=== PATIENT | female | born 1945 | race Caucasian/White ===

== ENCOUNTER 2024-06-25 08:23 | Outpatient (AMB) | payer MEDICARE, BC, SELFPAY ==
[2024-06-25 08:26] VITALS: BP 130/78; PULSE 55; O2SAT 91
--- NOTE | 2024-06-25 08:26 | A.OFFVIS_ITS ---
Vital Signs 06/25/24 08:26 Weight 121 lb 0.54 oz BP 130/78 Blood Pressure Location Rt brachial Position Sitting Pulse 55 Pulse Source Pulse Oximeter Pulse Oximetry (%) 91 L Oxygen Delivery Method Room Air Intake Visit Reasons: [facility]//RECORDS RECEIVED Intake Note: Patient present today for [facility] office visit. Directory Compiler Required: No Accompanied by: Self / Same As Patient Allergies erythromycin base Adverse Reaction (Unknown, Verified 06/25/24 08:31) Skin Rashes, Eruption of skin Medication List - Last Reconciled 06/25/24 by Babar Mcbride MD calcium carbonate 600 mg PO DAILY cholecalciferol (vitamin D3) 50 mcg PO DAILY empty container (BD Sharps Authorizer) As directed lisinopril 2.5 mg PO DAILY prednisone 3 mg PO DAILY [id number] (Evenity) mg subcut tocilizumab (Actemra ACTPen) 162 mg subcut QWEEK HPI Comments Details: Last Evenity 06/05 #7. Evenity started November 2023. Next due end of the month. Continues to take calcium and vitamin D. Last Actemra SC last saturday. In early may she had acute on chronic scalp tenderness resolved with increasing prednisone to 5mg for 1.5weeks. She decreased prednisone to 3mg daily now for 17 days. Increase hair growth and feels improved skin (less bruising) on lower dose of prednisone. Fatigue has improved, especially after conducting (3hours). She is not as wiped out as she used to be. Denies jaw claudication, vision loss, shoulder pain. She has very minimal scalp tenderness. She has been experiencing right lower lateral back pain for the last 7 months. Does back and hip stretches daily. Back pain is tolerable. MRI brain 2023 per patient report is normal. [facility] Medical History (Updated 06/25/24 @ 23:03 by Babar Mcbride MD) History of biopsy Pericarditis Pacemaker Osteoporosis Heart disease Surgical History History of colonoscopy Family History Mother Lung cancer Breast cancer Osteoporosis Father Heart disease Social History Alcohol intake: current Alcohol type: wine Comment: 3 x week Patient Tobacco Use Status: Former Tobacco user Substance Use Type: Marijuana Review of Systems Const All systems reviewed & are unremarkable except as noted in HPI and below Physical Exam Vital Signs: Last Vital Signs Pulse 55 06/25/24 08:26 BP 130/78 06/25/24 08:26 Pulse Ox 91 L 06/25/24 08:26 Oxygen Delivery Method Room Air 06/25/24 08:26 Const General: healthy appearing and comfortable Resp Effort & Inspection: normal respiratory effort Auscultation: clear to auscultation bilaterally Cardio Rate: regular rate Rhythm: regular rhythm Heart sounds: S1 normal heart sound present and S2 normal heart sound present Back/Spine/Pelvis Thoracic/Lumbar Spine: other (tender left lateral flank on palpation) Skin Other: Bruising present on left arm. Extrem Other: Bilateral temporal tenderness. No jaw tenderness on palpation. +2 palpable radial pulses. No tender joints. No synovitis. Good ROM of upper extremities. Right hip external rotation limited. Results Reviewed Results Reviewed: Labs from 2023 reviewed in scanned documents. Assessment & Plan Assessment & Plan (1) Giant cell arteritis: Comment: Controlled on current regimen: Actemra 162mg SC weekly and prednisone 3mg daily. Recent flare in May with scalp tenderness. Currently, scalp tenderness is minimal. Code(s): M31.6 - Other giant cell arteritis Category: Medical Plan: Continue prednisone 3mg daily for 1 month then taper 1mg every 6 weeks. If unable to taper 1mg every 6 weeks then alternate 3mg with 2mg the next day for 1 month then 2mg daily for 1 month then alternate 2mg with 1mg the next day for 1 month then 1mg daily for 1 month then stop. Patient will call for prednisone refill. Continue Actemra 162mg every week SC Labs for disease and drug monitoring ordered. Patient will bring in recent MRI brain report. [facility] October 2024. Patient plans to leave for [place] end of Jul/early Aug. (2) Other salvage determiner (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 therapy: Code(s): Z79.899 - Other salvage determiner (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 therapy Category: Medical Plan: See above. (3) Osteoporosis: Comment: Hx of fragility fracture rib fracture. Fosamax [id number]. High risk for future fracture. [facility] 11/2023- Code(s): M81.0 - Age-related osteoporosis without current pathological fracture Category: Medical Plan: Continue evenity SC every 4 weeks for total of 12 months Labs for drug monitoring ordered. (4) Back pain of thoracolumbar region: Comment: 7 month hx likely due to MSK strain. Less likely related to evenity Code(s): M54.50 - Low back pain, unspecified; M54.6 - Pain in thoracic spine Category: Medical Plan: Continue applying heat to affected area PRN Continue back stretches Try lidocaine patch OTC Plan . Orders: Orders Erythrocyte Sedimentation Rate Today M31.6 - Other giant cell arteritis, Z79.899 - Other skilled nursing (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 therapy Creatinine Today M31.6 - Other giant cell arteritis, Z79.899 - Other salvage determiner (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 therapy Hepatitis B,C Profile Today M31.6 - Other giant cell arteritis, Z79.899 - Other salvage determiner (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 therapy Calcium Today M81.0 - Age-related osteoporosis without current pathological fracture, Z79.899 - Other salvage determiner (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 therapy Alanine Aminotransferase Today M31.6 - Other giant cell arteritis, Z79.899 - Other skilled nursing (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 therapy Aspartate Amino Transferase Today M31.6 - Other giant cell arteritis, Z79.899 - Other salvage determiner (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 therapy C Reactive Protein Today M31.6 - Other giant cell arteritis, Z79.899 - Other salvage determiner (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 therapy Complete Blood Count Auto Diff Today M31.6 - Other giant cell arteritis, Z79.899 - Other salvage determiner (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 therapy T Spot TB Today M31.6 - Other giant cell arteritis, Z79.899 - Other salvage determiner (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 therapy Vitamin D 25-OH Total Today M81.0 - Age-related osteoporosis without current pathological fracture, Z79.899 - Other skilled nursing (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 therapy Coding Level of Care Code Est Pt Level 4 (32833) Complex EM visit Add On G2211 Diagnoses Giant cell arteritis M31.6 Other salvage determiner (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 therapy Z79.899 Osteoporosis M81.0 Back pain of thoracolumbar region M54.50; M54.6
== END 2024-06-25 09:23 | disposition home or self-care (01) ==
PROVIDERS: PCP Physician Assistant Medical; Visit Provider Internal Medicine Rheumatology
DX: M31.6 Other giant cell arteritis (principal); Z79.899 Other long term (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 therapy; M81.0 Age-related osteoporosis without current pathological fracture; M54.50 Low back pain, unspecified; M54.6 Pain in thoracic spine
CPT/HCPCS: 99214; G2211

== ENCOUNTER 2024-06-25 08:23 | Outpatient (REF) | payer MEDICARE, BC, SELFPAY ==
[2024-06-25 10:11] LABS: MANUAL DIFF FLAG NO
[2024-06-25 10:42] LABS: Basophils Percent Auto 0.6 % (0-2); Eosinophils Absolute Auto 0.1 X10*3/uL (0.0-0.4); Eosinophils Percent Auto 1.3 % (0-4); Hematocrit 41.6 % (37.0-47.0); Hemoglobin 13.4 g/dl (12.0-16.0); Imm Gran Abs Auto 0.02 X10*3/uL (0.00-0.03); Imm Gran Pct Auto 0.3 % (0.0-0.4); Lymphocytes Absolute Auto 0.9 X10*3/uL (1.2-4.9); Lymphocytes Percent Auto 13.2 % (20-40); Mean Corpuscular HGB Conc 32.2 g/dl (31.0-35.0); Mean Corpuscular Hemoglobin 28.2 pg (27.0-33.0); Mean Corpuscular Volume 87.4 fL (80.0-98.0); Mean Platelet Volume 11.3 fL (9.4-12.3); Monocytes Absolute Auto 0.5 X10*3/uL (0.1-1.2); Monocytes Percent Auto 7.5 % (2-11); Neutrophils Absolute Auto 5.1 x10*3/uL (2.0-8.3); Neutrophils Percent Auto 77.1 % (45-73); Platelet Count 221 X10*3/uL (160-400); Red Blood Count 4.76 X10*6/uL (4.20-5.50); Red Cell Distribution Width 13.5 % (11.0-16.0); White Blood Count 6.7 X10*3/uL (4.8-10.8)
[2024-06-25 11:16] LABS: Alanine Aminotransferase 17 U/L (0-31); Aspartate Amino Transferase 23 U/L (5-31); C Reactive Protein 0.11 mg/dL (< or = 0.50); Calcium 8.8 mg/dL (8.4-10.2); Estimated Glomerular Filt Rate 46
[2024-06-25 11:18] LABS: Erythrocyte Sedimentation Rate 2 MM/HR (0-20)
[2024-06-25 11:31] LABS: Vitamin D 25-OH Total 45.1 ng/mL (>30)
[2024-06-25 11:34] LABS: HBS Num1 0.39 mIU/mL (0-7.99); HBc Num1 0.07 S/CO (0.00-0.79); HBsAGNum1 0.34 S/CO (0.00-0.99); Hepatitis B Core Antibody Nonreactive (Nonreactive); Hepatitis B Surface Antigen Negative (Negative); ~HepC Num1 0.06 S/CO (0.00-0.79); ~Hepatitis B Surface Antibody NONREACTIVE (Nonreactive); ~Hepatitis C Antibody Nonreactive (Nonreactive)
[2024-06-28 04:53] LABS: TS Negative Control Passed; TS Panel A 0; TS Panel B 0; TS Positive Control Passed; TSpotTB Negative (Negative)
== END 2024-06-25 08:24 | disposition home or self-care (01) ==
LOC: HO.LAB 08:23
PROVIDERS: PCP Physician Assistant Medical; Visit Provider Internal Medicine Rheumatology
DX: M31.6 Other giant cell arteritis (principal); M81.0 Age-related osteoporosis without current pathological fracture; Z79.899 Other long term (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 therapy; M54.50 Low back pain, unspecified; M54.6 Pain in thoracic spine
CPT/HCPCS: 36415; 82306; 82310; 82565; 84450; 84460; 85025; 85652; 86140; 86481; 86704; 86706; 86803; 87340; 99212

== ENCOUNTER 2024-08-03 12:43 | Outpatient (AMB) | payer MEDICARE, BC, SELFPAY ==
--- OUTSIDE RECORDS SUMMARY | 2024-08-03 12:47 | XMS_ITS | Continuity of Care Document ---
Author Organization [facility], FP, EHC, OFFICE Address [address] [place] [address] Care Team Providers Care Lan/Wan Engineer Name Role Phone AAMNDA CURTIS Mainframe Systems Administrator MARSHA BARNES Primary Care Provider CESIA NEWBY Airport Operations Coordinator [facility] Senior Sharepoint Developer Assessment No assessment recorded. Plan of Treatment Reminders Order Date Submit Date Provider Last Modified By Organization Details Last Modified Time Details Appointments None recorded. Lab None recorded. Referral None recorded. Procedures None recorded. Surgeries None recorded. Imaging None recorded. Medication Orders Evenity 210 mg/2.34 mL (105 mg/1.17 mL x 2) subcutaneou s syringe 2023 024 [email or web address] [id number] [address] [place], [address], 14:47:51 Evenity 210 mg/2.34 mL (105 mg/1.17 mL x 2) subcutaneou s syringe 2023 024 [id number] [address] [place], [address], 14:47:51 Patient TargetsNo targets recorded. Patient InstructionsNo instructions recorded. Reason for Referral None Reported. Problems Name Problem SNOMED Code Status Onset Date Resolution Date Notes Provider Name and Address Organization Details Recorded Time Anxiety 96824481 Active Marsha Barnes PA-C [address] [place] [address], [phone] , [facility] 2 08:05:37 Ophthalm ic migraine 94938420 Active 2016 Laura Franco NP [address] [place] [address], , [facility] 7 15:17:33 History of urticari a [id number] 526801 Active 2018 urticari a multifor me Marsha Barnes PA-C [address] [place] [address], , [facility] 9 12:10:16 Sinus bradycar theresa 33939755 Active 2018 pacemake r placed Marsha Barnes PA-C [address] [place] [address], [phone] , [facility] 0 10:46:17 Sick sinus syndrome 02110193 Active 2018 pacemake r Marsha Barnes PA-C [address] [place] [address], , [facility] 0 07:37:01 Cardiac pacemake r in situ 395316988 Active 2019 Marsha Barnes PA-C [address] [place] [address], , [facility] 2 08:05:37 Atrial fibrilla tion 54595367 Active 2019 due to pericard itis and now off medicati ons Marsha Barnes PA-C [address] [place] [address], , [facility] 2 08:05:37 Diastoli c dysfunct ion 1316655 Active 2019 Grade 1 Marsha Barnes PA-C [address] [place] [address], , [facility] 0 14:15:34 Acute injury of kidney 61799564357 620092 Active 2020 ATN from colchici ne/ibupr ofen/lis inopril, hydrate, Kamel, improvin g Marsha Barnes PA-C [address] [place] [address], [phone] , [facility] 2 10:22:56 Temporal arteriti s 911656150 Active 2021 Dx 2 - started steroids 11/15/2021 ; recurren ce starting Actemra 08/2022, course two years Marsha Barnes PA-C [address] [place] [address], [phone] , [facility] 3 09:55:37 Chronic kidney disease stage 3 474714908 Active 2021 GFR = 42.6, 03/12/22 Ashli Armenta, JACQUES null, [facility] 2 11:39:45 Erythema multifor me 04745159 Completed 200212/24/2018 Marsha Barnes PA-C [address] [place] [address], [phone] , [facility] 9 12:09:56 Extrinsi c asthma with status asthmati cus Completed 200705/31/2011 Not Available [facility] 3 03:11:30 Dyspnea 291609561 Completed 200305/31/2011 Not Available [facility] 3 03:11:30 Essentia l hyperten kaushik 83988365 Active 2002 Laura Franco NP [address] [place] [address], [phone] , [facility] 6 15:45:13 Benign essentia l hyperten kaushik 1189476 Completed 200105/31/2011 Not Available [facility] 3 03:11:30 Allergic rhinitis 32465442 Active 2006 Marsha Barnes PA-C [address] [place] [address], [phone] , [facility] 2 08:05:37 Influenz a 3566790 Completed 05/31/2011 Not Available [facility] 3 03:34:33 Dizzines s 578502397 Completed 200305/31/2011 Not Available [facility] 3 03:11:30 Major depressi on, melancho lic type 738760660 Active Not Available [facility] 3 03:11:30 Disorder of skeletal system 85086195 Completed 200105/31/2011 [facility] Available [facility] 3 03:11:30 Pain in throat 960765114 Completed 200705/31/2011 [facility] Available [facility] 3 03:11:30 Knee pain Completed 200605/31/2011 [facility] Available [facility] 3 03:11:30 Elevated blood-pr essure reading without diagnosi s of hyperten kaushik 008188341 Completed 200205/31/2011 Not Available [facility] 3 03:11:30 Malaise and fatigue 019371478 Completed 05/31/2011 Not Available [facility] 3 03:11:30 Left upper quadrant pain 762405897 Completed 10/16/2011 Not Available [facility] 3 03:11:30 Subserou s leiomyom a of uterus 79841174 Completed 200205/31/2011 [facility] Available [facility] 3 03:11:30 Headache 14519703 Completed 200705/31/2011 Not Available [facility] 3 03:11:30 Hyperthy roidism 96454929 Completed 200405/31/2011 [facility] Available [facility] 3 03:11:30 Uterine leiomyom a 77653955 Completed 200105/31/2011 Not Available [facility] 3 03:11:30 Ganglion of joint 52132232 Completed 200105/31/2011 [facility] Available [facility] 3 03:11:30 Hip pain 32969851 Completed 10/16/2011 Not Available [facility] 3 03:11:30 Allergic asthma without status asthmati cus 97461208 Active 2004 Marsha Barnes PA-C [address] [place] [address], [phone] , [facility] 2 08:05:37 Pure hypercho lesterol emia 055451089 Completed 200205/31/2011 Not Available [facility] 3 03:11:30 Hypertro phic conditio n of skin 12637226 Completed 200805/31/2011 [facility] Available [facility] 3 03:11:30 Breathin g painful 35996198 Completed 200405/31/2011 [facility] Available [facility] 3 03:11:30 Finding by method 306048392 Completed 200305/31/2011 Not Available [facility] 3 03:11:30 Breast lump 69784841 Completed 200510/16/2011 Not Available [facility] 3 03:11:30 Acute upper respirat ory infectio n 98297763 Completed 05/31/2011 Not Available [facility] 3 03:11:30 Nonvenom ous insect bite of multiple sites 590561945 Completed 05/31/2011 Not Available [facility] 3 03:11:30 On examinat ion - a rash Completed 200305/31/2011 [facility] Available [facility] 3 03:11:30 Senile osteopor osis 64985014 Completed 200105/31/2011 Not Available [facility] 3 03:11:30 Herpes zoster 6849380 Completed 200210/16/2011 Not Available [facility] 3 03:11:30 Osteopor osis 54381612 Active 2001 Dx 02/2022, does not want to start medicati ons Marsha Barnes PA-C [address] [place] [address], [phone] , [facility] 2 10:39:40 Menopaus al symptom 03413954 Completed 200105/31/2011 Not Available [facility] 3 03:11:30 Benign neoplasm of skin 54996281 Completed 05/31/2011 Not Available [facility] 3 03:11:30 Migraine 97746720 Completed 10/16/2011 Not Available [facility] 3 03:11:30 Streptoc occal sore throat 63301515 Completed 200705/31/2011 Not Available [facility] 3 03:11:30 Viral upper respirat ory tract infectio n 902423175 Completed 200705/31/2011 Not Available [facility] 3 03:11:30 Problem Notes None recorded. Procedures Surgical History Date Name Laterality Status Provider Name and Address Organization Details Recorded Time 11/27/19 24 G2211 completed WILLA Grant [address] [place] [address], [phone], [facility] 11/27/2023 11:03:32 06/05/20 23 Medicare Wellness Visit completed Kellen Meza [facility] 04/18/2023 09:30:54 06/05/20 23 Asthma Control Test (12 + years old) completed Kellen Meza [facility] 04/18/2023 09:31:10 06/05/20 23 Advanced Care Planning completed Kellen Meza [facility] 04/18/2023 09:31:00 07/16/20 22 Asthma Control Test (12 + years old) completed Kellen Meza [facility] 07/16/2022 08:29:27 03/16/20 22 Medicare Wellness Visit completed Krista Shay [facility] 03/16/2022 09:17:39 03/16/20 22 Alcohol use screening completed Krista [facility] 03/16/2022 09:17:39 03/16/20 22 Advanced Care Planning completed Marsha Barnes PA-C [address] [place] [address], [phone], [facility] 03/16/2022 12:46:19 11/18/19 22 biopsy of temporal artery completed Marsha Barnes PA-C [address] [place] [address], [phone], [facility] 11/20/2021 07:44:20 09/15/19 22 Asthma Control Test (12 + years old) completed Krista Shay [facility] 09/15/2021 10:13:57 02/11/20 21 Medicare Wellness Visit completed Nimo Worthington MA [facility] 02/08/2021 13:47:52 02/11/20 21 prevention-card iovascular risk reduction counseling completed Nimo Worthington MA [facility] 02/08/2021 13:47:52 02/11/20 21 prevention-howard al alcohol misuse screening completed Nimo Worthington MA [facility] 02/08/2021 13:47:52 02/11/20 21 Asthma Control Test (12 + years old) completed Marsha Barnes PA-C [address] [place], [address], [facility] 02/14/2021 13:40:34 07/14/20 20 42951: Therapeutic Exercise completed Shana Schofield, PT [address] [place], [address], [facility] 07/17/2020 19:32:09 07/06/20 20 24799: Therapeutic Exercise completed Shana Schofield, PT [address] [place], [address], [facility] 07/06/2020 08:04:57 06/29/20 20 Physical Activity Counselling completed Shana Schofield, PT [address] [place], [address], [facility] 07/05/2020 23:15:20 06/29/20 20 84894: PT Eval Low Complexity completed Shana Schofield, PT [address] [place], [address], [facility] 07/05/2020 23:15:25 02/08/20 20 Medicare Wellness Visit completed Rebecca Laws MA [facility] 02/05/2020 16:42:35 02/08/20 20 prevention-card iovascular risk reduction counseling completed Rebecca Laws MA [facility] 02/05/2020 16:42:35 02/08/20 20 prevention-howard al alcohol misuse screening completed Rebecca Laws MA [facility] 02/05/2020 16:42:35 02/08/20 20 Asthma Control Test (12 + years old) completed Marsha Barnes PA-C [address] [place], [address], [facility] 02/09/2020 12:18:47 02/07/20 19 Medicare Wellness Visit completed Rebecca Laws MA [facility] 02/06/2019 14:33:58 12/29/19 19 POC Strep Testing completed Latosha Delcid [facility] 12/28/2018 09:16:54 09/16/19 19 Medicare Risk for Falls Screen completed Rebecca Laws MA [facility] 09/16/2018 14:38:15 01/31/20 18 Medicare Wellness Visit completed Ashli Pacheco MA [facility] 01/30/2018 14:53:22 01/10/20 17 Medicare Wellness Visit completed Ashli Pacheco MA [facility] 01/09/2017 14:35:04 01/06/20 16 Medicare Wellness Visit completed Ashli Pacheco MA [facility] 01/06/2016 14:21:09 01/05/20 15 Medicare Wellness Visit completed Ashli Pacheco MA [facility] 01/04/2015 10:33:42 03/03/20 14 Tassoni - EGD completed Emory Leo MD [address] [place], [address], [facility] 03/03/2014 11:58:35 12/30/19 14 Medicare Wellness Visit completed Ashli Pacheco MA [facility] 12/29/2013 09:45:55 12/30/19 14 Asthma Control Test (12 + years old) completed Laura Franco NP [address] [place], [address], [facility] 12/29/2013 10:31:15 12/27/19 13 Medicare Wellness Visit completed Ashli Pacheco MA [facility] 12/26/2012 09:31:06 12/27/19 13 Asthma Control Test (12 + years old) completed Ashli Pacheco MA [facility] 12/26/2012 09:42:38 05/21/20 12 Asthma Control Test (12 + years old) completed Laura Franco NP [address] [place], [address], [facility] 05/21/2012 14:22:52 10/24/19 12 Medicare Wellness Visit completed Ashli Pacheco MA [facility] 10/24/2011 15:04:21 02/08/20 09 Treatment and Advice completed Ashley Mota, PT [address] [place], [address], [facility] 02/07/2009 11:03:34 11/16/19 09 Skin Tag Removal (each additional 10) completed Haley Saba MD [address] [place] [address], [phone], [facility] 11/15/2008 16:09:59 08/12/18 70 Bladder Surgery completed Adelaida Rose [facility] 12/17/2014 08:38:13 Pmkr, dual, rate-resp completed Marsha Barnes PA-C [address] [place] [address], [phone], [facility] 12/31/2019 14:16:27 Imaging Results None recorded. Procedure Notes None recorded. Medical Equipment None Reported. Allergies Allergen ID Allergen Name Allergen Category Reaction Reaction Severity Criticality Documentation Date Start Date Code Code System Note Provider Name and Address Organization Details Recorded Time [id number] atovaquon e / proguanil medicatio n itching Not available Not available 12/26/2012 96607 3 RxNorm Laura Franco NP [address] [place] [address] [place], [address], [facility] 3 09:51:17 254297 Wixela medicatio n other moderate Not available 02/07/2019 33556 06 RxNorm sever e muscl e cramp s lasti ng three hours Marsha Barnes PA-C [facility] [place], [address], [facility] 9 06:43:03 6489 erythromy brenda medicatio n rash Not available Not available 11/01/2008 4053 RxNorm Not Available [facility] 1 06:05:20 Medications Name Sig Start Date Stop Date Status Note LastModified by Organization Details LastModified Time clotrimaz ole 10 mg citlalli Take 1 tablet 5 times a day by oral route for 10 days. 10/31 completed Not Available Not Available Not Available nystatin 100,000 unit/mL oral suspensio n SWISH IN MOUTH AND RETAIN LONG POSSIBLE (FEW MINUTES) BEFORE SWALLOWI NG. USE 4 TIMES A DAY 11/05 completed Not Available Not Available Not Available prednison e 10 mg tablet TAKE 1.5 TABLETS BY MOUTH EVERY DAY FOR 30 DAYS 03/04 completed on 11mg not 10 01/09/23 SM Not Available Not Available Not Available doxycycli ne hyclate 100 mg capsule TAKE 1 CAPSULE BY MOUTH TWICE A DAY FOR 14 DAYS active Not Available Not Available No t Available Carafate 100 mg/mL oral suspensio n Take 10 mL 4 times a day by oral route. 2009 active Not Available Not Available Not Avai lable ofloxacin 0.3 % eye drops 09/16 completed Not Available Not Available Not Available ranitidin e 300 mg tablet active Not Available Not Available Not Available bacitraci n 500 unit/gram eye ointment APPLY TO LEFT EYE TWICE A DAY 07/17 completed Not Available Not Available Not Available meloxicam 15 mg tablet Take 1 tablet every day by oral route for 30 days. 01/28 completed Not Available Not Available Not Available atovaquon e 250 mg-progua nil 100 mg tablet TAKE 1 TAB DAILY STARTING 2DAYS BEFORE TRAVEL AND CONTINUI NG 7 DAYS ON RETURN 06/02 completed Not Available Not Available Not Available prednison e 20 mg tablet PATIENT IS TAKING 15MG OF 11/05/22 PLEASE D/C 20MG active Not Available Not Available No t Available prednison e 5 mg tablet TAKE 1 TABLET DAILY active Not Available Not Available No t Available methylpre dnisolone 4 mg tablet Take 1 tablet twice a day by oral route as needed. 01/09 completed currentl y not taking Not Available Not Available Not Available omeprazol e 40 mg capsule,d elayed release QD 11/26 completed Not Available Not Available Not Available aspirin 81 mg tablet,de layed release 11/05 completed Not Available Not Available Not Available Gentak 0.3 % (3 mg/gram) eye ointment APPLY 1/2 INCH STRIP TO AFFECTED EYELID TWICE A DAY active Not Available Not Available No t Available ketorolac 0.5 % eye drops INSTILL 1 DROP IN RIGHT EYE THREE TIMES A DAY FOR 3 WEEKS FOLLOWIN G SURGERY 04/26 completed Not Available Not Available Not Available ciclopiro x 8 % topical solution APPLY TO THE AFFECTED AREA(S) TOPICALL Y ONCE DAILY PREFERAB LY AT BEDTIME OR 8 HOURS BEFORE WASHING 11/26 completed Not Available Not Available Not Available oxycodone -acetamin ophen 5 mg-325 mg tablet Take 1 tablet every 6 hours by oral route as needed for 10 days. 11/21 completed not taking 11/15/21 sf Not Available Not Available Not Available calcium 600 mg (as calcium carbonate 1,500 mg) tablet 02/07 completed No longer using 0-ah Not Available Not Available Not Available prednisol one acetate 1 % eye drops,oseas pension 09/16 completed Not Available Not Available Not Available lorazepam 0.5 mg tablet Take 1tab tid prn active Not Available Not Available No t Available prednison e 1 mg tablet TAKE 4 TABLETS EVERY DAY BY ORAL ROUTE FOR 30 DAYS. 2023 active Not Available Not Available Not Avai lable benzonata te 100 mg capsule TAKE 1 CAPSULE BY MOUTH THREE TIMES A DAY FOR 7 DAYS 11/24 completed Not Available Not Available Not Available prednison e 2.5 mg tablet TAKE 5 TABLETS FOR TWO WEEKS THEN TAPER TO 4 TABLETS FOR ONE MONTH. 11/26 completed Not Available Not Available Not Available ranitidin e 150 mg tablet Take 1 tablet twice a day by oral route. 2009 active Not Available Not Available Not Avai lable clotrimaz ole-betam ethasone 1 %-0.05 % topical cream Apply to the affected and surround ing areas of skin by topical route 2 times per day morning and evening for 2 weeks 2009 active Not Available Not Available Not Avai lable ranitidin e 300 mg capsule Take 1 capsule every day by oral route before meals. 2012 active Not Available Not Available Not Avai lable lisinopri l 10 mg tablet Take 1 tablet every day by oral route for 90 days. 11/05 completed Not Available Not Available Not Available Tobrex 0.3 % eye ointment APPLY A SMALL AMOUNT (1/2 INCH) TO THE LOWER LID OF THE AFFECTED EYE(S) BY OPHTHALM IC ROUTE 2 TIMES PER DAY 2013 active Not Available Not Available Not Avai lable flecainid e 100 mg tablet TAKE 1 TABLET BY MOUTH TWICE A DAY 08/19 completed not using 08/19/20 -sk Not Available Not Available Not Available ibuprofen 200 mg tablet Take 1 tablet every 8 hours by oral route. 08/19 completed not using 08/19/20 -sk Not Available Not Available Not Available omeprazol e 20 mg capsule,d elayed release Take 1 capsule every day by oral route in the morning for 30 days. 01/09 completed Not Available Not Available Not Available Tylenol 325 mg tablet Take 2 tablets every 6 hours by oral route as needed. 02/07 completed Not Available Not Available Not Available codeine 10 mg-guaife nesin 100 mg/5 mL oral liquid TAKE 10MLS BY MOUTH EVERY 4 HOURS NEEDED 11/24 completed Not Available Not Available Not Available oxycodone -acetamin ophen 2.5 mg-325 mg tablet 02/07 completed No longer using 0-ah Not Available Not Available Not Available lisinopri l 5 mg tablet PLEASE D/C 5MG, PATIENT TAKING 2.5MG active Not Available Not Available No t Available zolpidem 5 mg tablet TAKE 1/2 TO 1 TABLET AT BEDTIME NEEDED 01/09 completed currentl y not taking Not Available Not Available Not Available ibuprofen 600 mg tablet QID 04/21 completed does not take 04/20/21 KRB Not Available Not Available Not Available Zonalon 5 % topical cream 07/17 completed Not Available Not Available Not Available methylpre dnisolone 4 mg tablets in a dose pack take as directed on dosepak 02/07 completed no longer taking 02/06/19- ah Not Available Not Available Not Available albuterol sulfate HFA 90 mcg/actua tion aerosol inhaler INHALE 1 TO 2 PUFFS EVERY 6 HOURS NEEDED 02/23 completed PRN, not using 11/15/21 sf not currentl y taking 01/29/22 Not Available Not Available Not Available colchicin e 0.6 mg tablet QD 04/21 completed does not take 04/20/21 KRB Not Available Not Available Not Available fluticaso ne propionat e 50 mcg/actua tion nasal spray,oseas pension [place] 1-2 sprays in each nostril once daily 2010 active Not Available Not Available Not Avai lable lisinopri l 2.5 mg tablet TAKE 1 TABLET DAILY active Not Available Not Available No t Available doxycycli ne hyclate 100 mg tablet TAKE 2 TABLETS BY MOUTH ONCE FOR 1 DAY 02/27 completed Not Available Not Available Not Available amoxicill in 875 mg-potass ium clavulana te 125 mg tablet TAKE 1 TABLET BY MOUTH EVERY 12 HOURS FOR 5 DAYS 10/19 completed gave pt diarrea 10/19/21 ds Not Available Not Available Not Available oxycodone 5 mg tablet TAKE 1 TABLET BY MOUTH EVERY 6 HOURS NEEDED active Not Available Not Available No t Available magnesium 200 mg tablet Take 2 tablets every day by oral route. 09/16 completed Not currentl y taking 09/16/18-a h Not Available Not Available Not Available Vitamin D2 10 mcg (400 unit) tablet 2006 active Take 1.00 tabs daily Not Available Not Available Not Available cyclobenz aprine 5 mg tablet Take 1 tablet 3 times a day by oral route. 11/21 completed not taking 11/15/21 sf Not Available Not Available Not Available metoprolo l tartrate 25 mg tablet TAKE 2 TABLETS BY MOUTH 2 TIMES A DAY. 04/19 completed Not Available Not Available Not Available magnesium 1 tablet a day active Not Available Not Available No t Available calcium 1 tablet daily active 600 mg Not Available Not Available No t Available omeprazol e active 20 mg 1 tablet daily Not Available Not Available Not Available Vitamin D3 1000 IU daily active Not Available Not Available No t Available multivita min 11/01 completed qd Not Available Not Available Not Available [place] Deluxe Digital Monitor kit 2007 active use as directed Not Available Not Available Not Available omega-3 fatty acids-fis h oil 09/16 completed stopped 08/07/18 DO Not Available Not Available Not Available Pulmicort Flexhaler 90 mcg/actua tion breath activated Inhale 2 puffs twice a day by inhalati on route. 2009 active Not Available Not Available Not Avai lable Symbicort 80 mcg-4.5 mcg/actua tion HFA aerosol inhaler Inhale 1 puff twice a day by inhalati on route. 04/20 completed currentl y not taking 02/24/21 yp, taking 03/20/21 dsy, does not take 04/20/21 KRB Not Available Not Available Not Available magnesium 84.5 mg (as magnesium oxide 140 mg) capsule Take 1 capsule every day by oral route in the morning. 02/07 completed No longer using 0-ah Not Available Not Available Not Available blood pressure test kit-large cuff 04/21 completed Not Available Not Available Not Available omega 3-dha-epa -fish oil 1,000 mg (120 mg-180 mg) capsule Take 1 capsule every day by oral route as directed . 02/07 completed No longer using 0-ah Not Available Not Available Not Available Eliquis 5 mg tablet Take 1 tablet twice a day by oral route. 04/19 completed No longer using 0-ah Not Available Not Available Not Available Breo Ellipta 100 mcg-25 mcg/dose powder for inhalatio n Inhale 1 puff every day by inhalati on route. 09/15 completed Not Available Not Available Not Available Actemra 162 mg/0.9 mL subcutane ous syringe Inject 0.9 mL every 4 weeks by subcutan eous route. active Not Available Not Available No t Available Breo Ellipta 200 mcg-25 mcg/dose powder for inhalatio n TAKE 1 PUFF BY MOUTH EVERY DAY 11/21 completed not using 11/15/21 sf Not Available Not Available Not Available Vivotif 2 billion unit capsule,d elayed release TAKE ONE CAPSULE BY MOUTH EVERY OTHER DAY 07/24 completed Not Available Not Available Not Available Shingrix (PF) 50 mcg/0.5 mL intramusc ular suspensio n, kit 08/19 completed had on at the pharmacy - Not Available Not Available Not Available Actemra ACTPen 162 mg/0.9 mL subcutane ous pen injector 11/05 completed Not Available Not Available Not Available Wixela Inhub 250 mcg-50 mcg/dose powder for inhalatio n TAKE 1 PUFF BY MOUTH TWICE A DAY 12/28 completed Not Available Not Available Not Available Evenity 210 mg/2.34 mL (105 mg/1.17 mL x 2) subcutane ous syringe adminste r 1.17 mL subcutan eously once a month 2023 active Not Available Not Available Not Avai lable Evenity dose unknown, 1 shots per month by Rheum active Not Available Not Available No t Available Afluria Qd 2018- (36 mos up)(PF)60 mcg (15 mcg x4)/0.5 mL IM syringe 06/17 completed Not Available Not Available Not Available Flowflex COVID-19 Antigen Home Test kit DIRECTED 01/09 completed Not Available Not Available Not Available Evusheld (EUA) 150 mg/1.5 mL-150 mg/1.5 mL intramusc ular solution Inject 1.5 mL by intramus cular route. 02/23 completed Not Available Not Available Not Available biotin 1,250 mcg-colla gen 50 mg-vit C 67.5 mg-vit E-herbal chew tablet Take 1 tablet every day by oral route. active Not Available Not Available No t Available Vitals Date Recorded Body height Body mass index (BMI) Body weight Heart rate Systolic blood pressure Diastolic blood pressure Provider Name and Address Organization Details Last Updated DateTime 4 162.56 cm 21 kg/m2 59624.3 7 g 71 /min 118 mm[Hg] 68 mm[Hg] Alena Gregg LPN [facility] 4 14:04:33 Social History Question Answer Notes LastModified by Organizat ion Details LastModified Time Tobacco Smoking Status Former Smoker quit in her 20's Gerri evans, [facility] 12/29/2010 15:05:32 Do You Have An Advance Directive? No [email or web address] Information not available 10/18/2011 What Is Your Level Of Alcohol Consumption? Moderate Information not available 08/06/2013 How Much Tobacco Do You Chew? None Information not available 09/20/2011 Are You Currently Employed? No retired [email or web address] Information not available 06/05/2023 What Type Of Diet Are You Following? REGULAR Information not available 09/20/2011 Do You Or Have You Ever Used E-cigarettes Or Vape? Never Used Electronic Cigarettes Information not available 11/17/2019 Education Post Graduate Information not available 01/04/2015 What Is The Highest Grade Or Level Of School You Have Completed Or The Highest Degree You Have Received? 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 Yes Is Worried Abt Partner [email or web address] Information not available 06/05/2023 When Did You Quit Smoking? 16+yearssincel [email or web address] Information not available 04/20/2015 How Many Days In The Past Year Have You Had A Heavy Drinking Consumption (4+ Female, 5+ Male)? 0 Information not available 04/20/2015 Are There Any Guns Present In Your Home? No Information not available 09/20/2011 Do You Use Insect Repellent Routinely? Yes [email or web address] Information not available 06/05/2023 Live Alone Or With Others? With Others Information not available 09/20/2011 Does The Patient Have Difficulty Speaking Peruvian? No Information not available 09/20/2011 Does The Patient Have Difficulty Reading Peruvian? No Information not available 09/20/2011 Patient Has Health Care Proxy Signed And In Chart Yes Information not available 02/16/2021 MOLST Form Signed And In Chart 02/10/2021 Information not available 02/16/2021 CCM Consent Discussion 03/16/2022 [email or web address] Information not available 03/16/2022 Marital Status Domestic Partner Belia Aguirre - 'Anne' Information not available 08/15/2010 Mosquito Repellent Used Routinely Yes Information not available 09/20/2011 What Was The Date Of Your Most Recent Tobacco Screening? 05/18/2024 [email or web address] Information not available 05/18/2024 How Many Children Do You Have? 0 Information not available 09/20/2011 What Is Your Current Pack Years? [email or web address] Information not available 04/20/2015 What Is Your Relationship Status? Domestic Partner Anne Information not available 06/05/2023 Do You Use Your Seat Belt Or Car Seat Routinely? Yes [email or web address] Information not available 06/05/2023 Seat Belts Used Routinely Yes Information not available 09/20/2011 Smoke Alarm In Home Yes Information not available 09/20/2011 Do You Have Smoke And Carbon Monoxide Detectors In Your Home? Yes [email or web address] Information not available 06/05/2023 Are You Passively Exposed To Smoke? No [email or web address] Information not available 06/05/2023 Do You Or Have You Ever Used Smokeless Tobacco? Never Used Smokeless Tobacco Information not available 11/17/2019 How Much Tobacco Do You Smoke? No Information not available 11/17/2019 General Stress Level Low Information not available 01/06/2016 Do You Use Sunscreen Routinely? Yes Information not available 09/20/2011 Sex: Female Functional Status Question Answer Note LastModified by Organization D etails LastModified Time What is your exercise level? Moderate [email or web address] Information not available 06/05/2023 Mental Status None recorded. Family History Relationship Description Onset Age of this Age Resolved Age Notes LastModified by Organization Details LastModified Time Father Parkinson's disease [email or web address] Not available 2014 13:20:13 Mother Osteoporosis [email or web address] Not avail able 04/20/2015 13:20:13 Mother Malignant tumor of lung [email or web address] Not available 2018 14:45:12 Brother Dentin dysplasia, type II [email or web address] Not available 2018 14:44:56 Brother Type 2 diabetes mellitus [email or web address] Not available 2019 14:32:05 Maternal Aunt Malignant tumor of breast [email or web address] Not available 2018 14:45:22 Medical History Condition Response Atrial Fibrillation Y RENAL / GENITOURINARY Y Asthma Y Pacemaker Y CARDIOVASCULAR Y Colon Polyps Y RHEUMATOLOGIC Y Hypertension Y Osteoporosis Y Gynecological HistoryNo gynecological history recorded. Obstetrics History GPAL:G 0 P 0 0 0 0 Immunizations Vaccine Type Date Status Note Provider Nam e and Address Organization Details Recorded Time Td (adult), 5 Lf tetanus toxoid, preservative free, adsorbed 2 completed Not Available [facility] 08/29/2019 02:31:14 Influenza, split virus, trivalent, PF 3 completed Not Available [facility] 08/29/2019 02:35:41 Hep A, adult 3 completed Not Available [facility] 08/29/2019 02:33:40 typhoid, oral 3 completed Not Available [facility] 05/04/2021 14:55:06 Hep A, adult 3 completed Not Available [facility] 05/04/2021 14:55:06 Influenza, high-dose, trivalent, PF 9 completed Not Available [facility] 08/29/2019 02:25:06 Pneumococcal conjugate PCV 13 9 completed Not Available [facility] 08/29/2019 02:23:36 Influenza, high-dose, quadrivalent, PF 0 completed Marylu Arita CMA [facility] 06/14/2020 13:42:09 Influenza, split virus, quadrivalent, preservative 9 completed Not Available [facility] 05/04/2021 14:55:06 Td (adult), 2 Lf tetanus toxoid, preservative free, adsorbed 2 [facility] 11:52:55 pneumococcal polysaccharide PPV23 2 completed Eliz Thapa RN BSN [facility] 09/25/2021 10:15:04 zoster recombinant 1 completed Not Available [facility] 05/04/2021 14:55:06 zoster recombinant 0 completed Not Available [facility] 05/04/2021 14:55:06 COVID-19, mRNA, LNP-S, PF, 30 mcg/0.3 mL dose 1 completed Not Available [facility] 05/04/2021 14:55:06 Influenza, high-dose, quadrivalent, PF 2 completed DAVE Rodriguez [facility] 06/04/2022 10:47:04 COVID-19, mRNA, LNP-S, bivalent, PF, 50 mcg/0.5 mL or 25mcg/0.25 mL dose 3 completed Eliz Thapa RN BSN [facility], [facility] 12/27/2022 14:08:17 COVID-19, mRNA, LNP-S, PF, 30 mcg/0.3 mL dose 1 completed Not Available [facility] 05/04/2021 14:55:06 Influenza, high-dose, trivalent, PF 1 completed Krista Shay [facility] 08/01/2021 09:00:15 COVID-19, mRNA, LNP-S, PF, 30 mcg/0.3 mL dose 1 completed Krista Shay [facility] 10/16/2021 10:06:16 COVID-19, mRNA, LNP-S, PF, 30 mcg/0.3 mL dose 2 completed Ciara Gonzalez LPN [facility], [facility] 04/30/2022 08:35:08 Influenza, split virus, quadrivalent, PF 3 [facility] 14:46:55 COVID-19, mRNA, LNP-S, PF, 100 mcg/0.5mL dose or 50 mcg/0.25mL dose 3 completed DAVE Enriquez [facility] 05/20/2023 14:47:18 RSV, bivalent, protein subunit RSVpreF, diluent reconstituted, 0.5 mL, PF 3 completed Sobeida Jacobson MA [facility] 08/08/2023 09:40:10 Past Encounters Encounter ID Performer Location Encounter Start Date Encounter Closed Date Diagnosis/Indication Diagnosis SNOMED-CT Code Diagnosis ICD10 Code [id number] Alena Gregg LPN FP, [facility], OFFICE [address] [place] [phone] 07/08/2024 09:32:21 07/08/2024 12:00:23 [facility] [id number] 81.0 Health Concerns Section Related Observation LastModified by Organization Detai ls LastModified Time None Recorded Concern Status LastModified by Organization Details LastModified Time None Recorded Payers Encounter Date Sequence Insurance Name Policy Number Policy Herrera Covered Member ID Herrera Member ID Guarantor Name 07/08/2024 2 [facility] [employer] [id number] Alyssa Estrada [id number] Alyssa Estrada 07/08/2024 1 MEDICARE [place]: [facility] Alyssa Estrada [id number] Alyssa Estrada OBGyn Episode No OBEpisode recorded.
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
--- NOTE | 2024-08-03 12:57 | AM.OFFVISNUR ---
Intake Visit Reasons: Evenity injection Intake Note: This is a 78 year old female patient who presents for her Evenity injection today. Lotus Notes Developer Required: No Allergies erythromycin base Adverse Reaction (Unknown, Verified 07/06/24 08:03) Skin Rashes, Eruption of skin Nursing Note This is a 78 year old female patient who presents for her Evenity injection today. The patient states she is feeling well so we proceeded with the injection, consent was signed. She stated she is traveling for the next two months so we confirmed with Dr. Mcbride that she wanted us to proceed today with the injection, she stated yes. 105mg of Evenity given in right lower quadrant of the abdomen and 105mg of Evenity given in the left lower quadrant of the abdomen subcutaneously as ordered. Lot number [id number], expiration is May 07, and [facility] [place] [id number]. The patient tolerated the injection well. Office Meds romosozumab-aqqg 210 mg/2.34 mL(105 mg/1.17 mL x2)subcutaneous syringe Performing Provider: Yury Callaway MD Performing Location: [facility] Rheumatology Administered by: Coretta Palomino RN on 08/10/24 14:13 Dose Route Admin Location Dispensed Lot Number Expiration Date [facility] Survey Research Manager 210 mg subcut RLQ and LLQ 2.34 mL [id number] 05/11/26 [id number] AMGEN Assessment & Plan Assessment & Plan Orders: Orders AMB Romosozumab Injection Patient Supplied 08/03/24 M81.0 - Age-related osteoporosis without current pathological fracture Medications: New romosozumab-aqqg 210 mg (2.34 mL) subcut ONCE 2.34 mL 0RF M81.0 - Age-related osteoporosis without current pathological fracture
== END 2024-08-03 13:42 | disposition home or self-care (01) ==
PROVIDERS: PCP Physician Assistant Medical
DX: M81.0 Age-related osteoporosis without current pathological fracture (principal)

== ENCOUNTER → 2024-08-03 12:43 | Outpatient (BNVA) | payer MEDICARE, BC, SELFPAY | PROVIDERS: PCP Physician Assistant Medical | DX: M81.0 Age-related osteoporosis without current pathological fracture (principal) | CPT/HCPCS: 96372; J3111 ==

== ENCOUNTER 2024-10-13 13:09 | Outpatient (REF) | payer MEDICARE, BC, SELFPAY ==
--- OUTSIDE RECORDS SUMMARY | 2024-10-13 18:09 | XMS_ITS | Clinical Summary ---
Author Organization [address] [facility] Address [address] [place] [address] Phone Care Team Providers Care Sound Technician Name Role Phone Adriana Lin MD Primary [...] Description 07/22/2024 5:40 PM EST Ancillary Procedure [facility] - [facility] [address] [facility] [address] [place] [address] from Last 3 Months Social [...] Description 10/20/2024 2:30 PM EDT Ancillary Procedure [facility] - [address] [facility] [address] [place] [phone] Health Maintenance Due Date Last Done Comments [...] this topic Medical Devices Implanted Type Area Nephrology Nurse Device Identifier Shelf Expiration Date Model / Serial / Lot Andry-Junaid 2272 Assurity Mri(Tm) [id number] Implanted: (Quantity not on file) Cardiac Pacemaker [place]- [employer] 2272 ASSURITY MRI(TM) / [id number] / Procedures Procedure Name Priority Date/Time Associated Diagnosis Comments CARDIAC DEVICE CHECK- REMOTE- MURJ Routine 07/22/2024 5:37 PM EST ANNUAL BMP BLOOD TEST Routine 05/11/2024 from Last 3 Months or Most Recently Relevant to Health Maintenance Results * Cardiac device check - Remote- MURJ (07/22/2024 5:37 PM EST) Date Time Interrogation Session [id number] CV DEVICE CHECK Type Interrogation Session Remote Scheduled CV DEVICE CHECK Implantable Pulse Generator Nephrology Nurse [employer] CV DEVICE CHECK Implantable Pulse Generator Type IPG CV DEVICE CHECK Implantable Pulse Generator Model 2272 Assurity MRI(TM) CV DEVICE CHECK Implantable Pulse Generator Serial Number [id number] CV DEVICE CHECK Implantable Pulse Generator Implant Date 20190831 CV DEVICE CHECK Battery Remaining Percentage 47.00 CV DEVICE CHECK Battery Remaining Longevity 53.0 CV DEVICE CHECK Battery Voltage 2.980 CV D EVICE CHECK Battery ACCOUNT RECEIVABLE CLERK Trigger 2.600 CV DEVICE CHECK Battery Status Middle of Service CV DEVICE CHECK Epifanio Statistic RA Percent Paced 87.00 CV DEVICE CHECK Epifanio Statistic RV Percent Paced 23.00 CV DEVICE CHECK Atrial Tachy Statistic AT/AF [place] Percent 0.00 CV DEVICE CHECK Lead Channel [...] Delay 200 CV DEVICE CHECK Epifanio Setting JNI Delay 180 CV DEVICE CHECK Date of [...] Recently Relevant to Health Maintenance Insurance MEDICARE [facility] Care Teams Sound Technician Relationship Specialty Start Date End Date Adriana Lin MD [address] [place] [phone] PCP - General 07/01/20
--- OUTSIDE RECORDS SUMMARY | 2024-10-13 18:09 | XMS_ITS | Clinical Summary ---
Author Organization [facility], Address [address] [facility] [address] [place] [address] Phone Care Team Providers Care Senior Erp Consultant Name Role Phone Cynthia Romo Sherrie SMITH Primary Care Provider [phone] Allergies Active Allergy Reactions Criticality Noted Date [...] age to complete this topic Insurance MEDICARE [facility] Care Teams Senior Erp Consultant Relationship Specialty Start Date End Date Cynthia Romo PA-C [address] [place] [address] PCP - General Physician Analytical Technician 04/25/21
[2024-10-13 18:46] LABS: C Reactive Protein < 0.10 mg/dL (< or = 0.50)
[2024-10-13 19:33] LABS: Erythrocyte Sedimentation Rate 6 MM/HR (0-20)
== END 2024-10-13 13:10 | disposition home or self-care (01) ==
LOC: HO.HKASLDS 13:09
PROVIDERS: PCP Physician Assistant Medical; Visit Provider Internal Medicine Rheumatology
DX: M31.6 Other giant cell arteritis (principal); Z79.899 Other long term (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 therapy; M81.0 Age-related osteoporosis without current pathological fracture
CPT/HCPCS: 36415; 85652; 86140; 99212

== ENCOUNTER 2024-10-13 13:09 | Outpatient (AMB) | payer MEDICARE, BC, SELFPAY ==
--- NOTE | 2024-10-13 13:30 | A.OFFVIS_ITS ---
Intake Visit Reasons: 3m follow up Allergies erythromycin base Adverse Reaction (Unknown, Verified 07/06/24 08:03) Skin Rashes, Eruption of skin HPI HPI 3m follow up: Details: SHe was under a lot of stress in [place] with trying to get creon for her partner and mold in her home. Her spouse has dementia Flare with burning and pins/needles in scalp. Prednisone increased to 8mg qd -->7mg daily and now on prednisone 4mg qd. In [place] she had a diffuse blistering rash. SHe had a skin biopsy that came back negative. She was renting a house with old multh with dogs bringing it in the house. She is concerned she has chiggers She denies jaw pain, jaw claudication, scalp tenderness, headache, vision changes, pain in shoulders/hips [facility] Medical History (Updated 10/13/24 @ 14:06 by Babar Mcbride MD) History of biopsy Pericarditis Pacemaker Osteoporosis Heart disease Surgical History History of colonoscopy Family History Mother Lung cancer Breast cancer Osteoporosis Father Heart disease Social History Alcohol intake: current Alcohol type: wine Comment: 3 x week Patient Tobacco Use Status: Former Tobacco user Substance Use Type: Marijuana Review of Systems Const All systems reviewed & are unremarkable except as noted in HPI and below Physical Exam Const Other: General: Comfortable CVS: RRR Respiratory: clear to auscultation bilaterally. Good respiratory effort Skin: No lesions seen MSK: No tenderness of scalp/temporal region. [place] nodes present. Good range of motion of upper extremities and lower extremities. + 2 radial pulse b ilaterally Assessment & Plan Assessment & Plan (1) Giant cell arteritis: Comment: Controlled on current regimen: Actemra 162mg SC weekly and prednisone 4mg daily. She has had recurrent episodes of scalp tenderness, responding to temporary increases in prednisone. In the past during episodes inflammatory markers remain normal. I am concerned she has stress-induced scalp dysesthesia. I am requesting Neurology input to rule out other causes of scalp dysesthesia. Rheumatology history: Biopsy confirmed GCA 11/2021. She has had recurrent relapses on prednisone. Initial relapses involved recurrent headaches. 2023 she has had recurrent relapses due to scalp tenderness. Actemra 08/2022- Code(s): M31.6 - Other giant cell arteritis Category: Medical Plan: Neurology consultation Decrease prednisone to 3 mg daily, reducing prednisone 1 mg every month until you are done Inflammatory markers ordered today Requesting labs from August 2024 [facility] in [place] Continue Actemra 162 mg subcutaneous injection weekly Return to clinic in 3 months (2) Osteoporosis: Comment: Hx of fragility fracture rib fracture. Fosamax [phone]. High risk for future fracture. Evenity 11/2023-. She had Evenity 7. 05/2024. Evenity has been approved for continuity of treatment. Code(s): M81.0 - Age-related osteoporosis without current pathological fracture Category: Medical Qualifiers: Osteoporosis type: age-related Presence of current pathological fracture: with current pathological fracture Encounter type: subsequent encounter Fracture healing: with routine healing Plan: Continue Evenity every 4 week subcutaneous injection. She will be scheduled for nurse visit as soon. Labs from 07/01/2024 are okay for patient to have Evenity. Requesting bone densities from [facility] Return to clinic in 3 months (3) Dysesthesia of scalp: Code(s): R20.8 - Other disturbances of skin sensation Category: Medical Plan: Neurology consultation See above (4) Other half-way (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 therapy: Code(s): Z79.899 - Other half-way (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 therapy Category: Medical Plan: See above Orders: Orders C Reactive Protein Today M31.6 - Other giant cell arteritis Erythrocyte Sedimentation Rate Today M31.6 - Other giant cell arteritis Referrals Neurology Referral R20.8 - Other disturbances of skin sensation Coding Level of Care Code Est Pt Level 4 (14730) Complex EM visit Add On G2211 Diagnoses Giant cell arteritis M31.6 Osteoporosis M81.0 Osteoporosis type: age-related Presence of current pathological fracture: with current pathological fracture Encounter type: subsequent encounter Fracture healing: with routine healing Dysesthesia of scalp R20.8 Other half-way (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 therapy Z79.899
--- OUTSIDE RECORDS SUMMARY | 2024-10-13 16:25 | XMS_ITS | Clinical Summary ---
Author Organization [facility], Address [address] [facility] [address] [place] [address] Phone Care Team Providers Care Straw Hat Presser Name Role Phone Cynthia Romo Sherrie SMITH Primary Care Provider Allergies Active Allergy Reactions Criticality Noted Date Comments Atovaquone-Proguanil Hcl Itching 04/27/2014 Erythromycin Rash Low 04/25/2021 Fluticasone-Salmeterol 04/25/2021 Severe muscle cramps lasting three hours Medications lisinopril 2.5 MG tablet Take 2.5 mg by mouth 1 (one) time each day Active omeprazole (PriLOSEC) [address] capsule Take 40 mg by mouth 1 (one) time each day Do not crush or chew. 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 Essential hypertension 04/25/2021 Family History Medical History Relation Comments Diabetes Brother Parkinsonism Father Lung cancer Mother Osteoporosis Mother Breast cancer Mother's Sister Relation Status Comments Brother Father Mother Mother's Sister Social History Tobacco Use Types Packs/Day Years Used Date Smoking Tobacco: Former Cigarettes Alcohol Use Standard Drinks/Week Comments Yes 0 (1 standard drink = 0.6 oz pur e alcohol) Comments Unknown Sex and Gender Information Value Date Recorded Sex Assigned at Not on file Legal Sex Female 8:22 AM EDT Gender Identity Not on file Sexual Orientation Not on file 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
--- OUTSIDE RECORDS SUMMARY | 2024-10-13 16:26 | XMS_ITS | Clinical Summary ---
Author Organization [address] [facility] Address [address] [place] [address] Phone Care Team Providers Care Structures Mechanic Name Role Phone Adriana Lin MD Primary Care Provider Allergies Active Allergy Reactions Criticality Noted Date Comments Atovaquone 07/20/2024 Erythromycin Low 04/27/2014 Other reaction(s): Rash Medications calcium carbonate (CALCIUM ORAL) Take by mouth. Active MAGNESIUM ORAL Take by mouth. Active cholecalciferol (VITAMIN D-3) 25 mcg (1,000 unit) tablet Take by mouth. Active lisinopriL (PRINIVIL,ZESTRIL ) 2.5 mg tablet Take 1 Tablet by mouth daily. Active omeprazole (PriLOSEC) [address] capsule Take 1 Capsule by mouth daily. Active predniSONE (DELTASONE) 5 mg tablet Take 1 Tablet by mouth daily. Active romosozumab-aqqg (Evenity) Inject into the skin every 30 days. Active tocilizumab (ACTEMRA) subcutaneous injection Inject 1 Dose into the skin once a week. Active Active Problems Problem Noted Date Diagnosed Date Sick sinus syndrome 01/30/2022 Temporal arteritis 01/30/2022 Acute pericarditis 07/25/2020 Bradycardia 07/25/2020 Essential hypertension 07/25/2020 PAF (paroxysmal atrial fibrillation) 07/25/2020 Encounters Date Type Department Care Team Description 07/22/2024 5:40 PM EST Ancillary Procedure [facility] - [facility] [address] [facility] [address] [place] [address] from Last 3 Months Social History Tobacco Use Types Packs/Day Years Used Date Smoking Tobacco: Former Cigarettes Q uit: 07/25/1990 Smokeless Tobacco: Never Alcohol Use Standard Drinks/Week Comments Yes 1 (1 standard drink = 0.6 oz pur e alcohol) Comments Unknown Sex and Gender Information Value Date Recorded Sex Assigned at Not on file Legal Sex Female 8:27 PM EST Gender Identity Not on file Sexual Orientation Not on file Obstetrics History Last Filed Vital Signs Vital Sign Reading Time Taken Comments Blood Pressure 129/60 05/20/2024 2:35 PM EDT Sit ting L Arm Pulse 62 05/20/2024 2:35 PM EDT Temperature - - Respiratory Rate - - Oxygen Saturation - - Inhaled Oxygen Concentration - - Weight 55.3 kg (122 lb) 05/20/2024 2:35 PM EDT Height 162.6 cm (5' 4 ) 05/20/2024 2:35 PM EDT Body Mass Index 20.94 05/20/2024 2:35 PM EDT Plan of Treatment Upcoming Encounters Date Type Department Care Team (Late st Contact Info) Description 10/20/2024 2:30 PM EDT Ancillary Procedure [facility] - [address] [facility] [address] [place] [phone] Health Maintenance Due Date Last Done Comments Cholesterol Screening (Lipid Panel) 07/21/2022 Depression Screening 07/21/2022 Falls Risk Assessment 07/21/2022 Hepatitis C Screening 07/21/2022 Osteoporosis Screening (Bone Density Screening) 07/21/2022 Social Influencers of Health Screening 07/21/2022 Medicare Annual Wellness Visit 03/16/2023 03/16/2022 Influenza Vaccine (#1) 2024 3, 06/04/2022, 07/28/2021, Additional history exists Hypertension/CHF/CAD Annual BMP Blood Test 05/11/2025 05/11/2024 DTaP,Tdap,and Td Vaccines (3 - Td or Tdap) 09/19/2031 09/19/2021, 10/24/2011 Hepatitis A Vaccines Aged Out 08/06/2013, 09/24/19 13 No longer eligible based on patient's age to complete this topic Zoster Vaccines Completed 08/16/2020, 05/13, 05/16/2020 Pneumococcal Vaccine: 50+ Years Completed 09/25/2021, 11/24/2018 RSV Immunization Patients 60+ Years Old Completed 08/07/2023 COVID-19 Vaccine Completed 05/02/2024, 01/2023, 12/27/2022, Additional history exists HIB Vaccines Aged Out No longer eligi ble based on patient's age to complete this topic HPV Vaccines Aged Out No longer eligi ble based on patient's age to complete this topic Hepatitis B Vaccines Aged Out No long er eligible based on patient's age to complete this topic IPV Vaccines Aged Out No longer eligi ble based on patient's age to complete this topic MMR Vaccines Aged Out No longer eligi ble based on patient's age to complete this topic Meningococcal ACWY Vaccine Aged Out N o longer eligible based on patient's age to complete this topic Meningococcal B Vacine Aged Out No lo nger eligible based on patient's age to complete this topic RSV Immunization Patients Under 20 months Aged Out No longer eligible based on patient's age to complete this topic Varicella Vaccines Aged Out No longer eligible based on patient's age to complete this topic Medical Devices Implanted Type Area Windows Vmware Administrator Device Identifier Shelf Expiration Date Model / Serial / Lot Andry-Junaid 2272 Assurity Mri(Tm) [id number] Implanted: (Quantity not on file) Cardiac Pacemaker [place]- [employer] 2272 ASSURITY MRI(TM) / [id number] / Procedures Procedure Name Priority Date/Time Associated Diagnosis Comments CARDIAC DEVICE CHECK- REMOTE- MURJ Routine 07/22/2024 5:37 PM EST ANNUAL BMP BLOOD TEST Routine 05/11/2024 from Last 3 Months or Most Recently Relevant to Health Maintenance Results * Cardiac device check - Remote- MURJ (07/22/2024 5:37 PM EST) Date Time Interrogation Session [id number] CV DEVICE CHECK Type Interrogation Session Remote Scheduled CV DEVICE CHECK Implantable Pulse Generator Windows Vmware Administrator [employer] CV DEVICE CHECK Implantable Pulse Generator Type IPG CV DEVICE CHECK Implantable Pulse Generator Model 2272 Assurity MRI(TM) CV DEVICE CHECK Implantable Pulse Generator Serial Number [id number] CV DEVICE CHECK Implantable Pulse Generator Implant Date 20190831 CV DEVICE CHECK Battery Remaining Percentage 47.00 CV DEVICE CHECK Battery Remaining Longevity 53.0 CV DEVICE CHECK Battery Voltage 2.980 CV D EVICE CHECK Battery CORPORATE SALES TRAINER Trigger 2.600 CV DEVICE CHECK Battery Status Middle of Service CV DEVICE CHECK Epifanio Statistic RA Percent Paced 87.00 CV DEVICE CHECK Epifanio Statistic RV Percent Paced 23.00 CV DEVICE CHECK Atrial Tachy Statistic AT/AF [place] Percent 0.00 CV DEVICE CHECK Lead Channel Sensing Intrinsic Amplitude 1.000 CV DEVICE CHECK Lead Channel Setting Sensing Sensitivity 0.30 CV DEVICE CHECK Lead Channel Impedance Value 440 CV DEVICE CHECK Lead Channel Pacing Threshold Amplitude 0.500 CV DEVICE CHECK Lead Channel Pacing Threshold Pulse Width 0.5 CV DEVICE CHECK Lead Channel RA Pacing Threshold Date 2024-07-21 CV DEVICE CHECK Lead Channel Setting Pacing Amplitude 1.500 CV DEVICE CHECK Lead Channel Setting Pacing Pulse Width 0.5 CV DEVICE CHECK Lead Channel Sensing Intrinsic Amplitude 8.500 CV DEVICE CHECK Lead Channel Setting Sensing Sensitivity 0.50 CV DEVICE CHECK Lead Channel Impedance Value 440 CV DEVICE CHECK Lead Channel Pacing Threshold Amplitude 1.625 CV DEVICE CHECK Lead Channel Pacing Threshold Pulse Width 0.5 CV DEVICE CHECK Lead Channel RV Pacing Threshold Date 2024-07-21 CV DEVICE CHECK Lead Channel Setting Pacing Amplitude 1.875 CV DEVICE CHECK Lead Channel Setting Pacing Pulse Width 0.5 CV DEVICE CHECK Epifanio Setting Mode (NBG Code) DDDR CV DEVICE CHECK Epifanio Setting Lower Rate Limit 60 CV DEVICE CHECK Epifanio Setting AT Mode Switch Rate 180 CV DEVICE CHECK Epifanio Setting Maximum Tracking Rate 110 CV DEVICE CHECK Epifanio Setting Maximum Sensor Rate 110 CV DEVICE CHECK Epifanio Setting PAV Delay 200 CV DEVICE CHECK Epifanio Setting JIN Delay 180 CV DEVICE CHECK Date of Service 2024-08-04 CV DEVICE CHECK Anatomical Region Laterality Modality Device Interroga tion 07/21/2024 2:00 AM EST Impressions 07/22/2024 10:39 AM EST Normal Remote: No Events * Normal Device Function * Alerts or events: None * Battery: Battery is at 47%, 4.42 yrs * Sensing, impedance and thresholds reviewed * Programmed parameters reviewed * Presenting rhythm reviewed * Heart Rate Histograms reviewed * No significant changes noted *Episodes previously noted Narrative Procedure Note Tomas Ornelas MD - 07/22/2024 IMPRESSION: Normal Remote: No Events * Normal Device Function * Alerts or events: None * Battery: Battery is at 47%, 4.42 yrs * Sensing, impedance and thresholds reviewed * Programmed parameters reviewed * Presenting rhythm reviewed * Heart Rate Histograms reviewed * No significant changes noted *Episodes previously noted Tomas Ornelas MD CV IMPLANTABLE CARDIAC DEVICE PROCEDURES Final Result * Annual BMP Blood Test (05/11/2024) Annual BMP Blood Test Abstracted us Historical Provider HEALTH MAINTENANCE Final Result from Last 3 Months or Most Recently Relevant to Health Maintenance Insurance MEDICARE [facility] Care Teams Structures Mechanic Relationship Specialty Start Date End Date Adriana Lin MD [address] [place] [phone] PCP - General 07/01/20
== END 2024-10-13 14:05 | disposition home or self-care (01) ==
PROVIDERS: PCP Physician Assistant Medical; Visit Provider Internal Medicine Rheumatology
DX: M31.6 Other giant cell arteritis (principal); M81.0 Age-related osteoporosis without current pathological fracture; R20.8 Other disturbances of skin sensation; Z79.899 Other long term (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 therapy
CPT/HCPCS: 99214; G2211

== ENCOUNTER 2024-10-22 10:51 | Outpatient (AMB) | payer MEDICARE, BC, SELFPAY ==
--- NOTE | 2024-10-22 11:18 | AM.OFFVISNUR ---
Intake Visit Reasons: osteoporosis/evenity inj Allergies erythromycin base Adverse Reaction (Unknown, Verified 07/06/24 08:03) Skin Rashes, Eruption of skin Office Meds romosozumab-aqqg 210 mg/2.34 mL(105 mg/1.17 mL x2)subcutaneous syringe Performing Provider: Babar Mcbride MD Performing Location: [facility] Rheumatology-[facility] Administered by: Tariq Patterson RN on 10/22/24 11:15 Dose Route Admin Location Dispensed Lot Number Expiration Date [facility] Professional Athletes Coach 105 mg subcut RLQ 1.17 mL [id number] 11/09/26 63523-191-42 AMGEN 105 mg subcut LLQ 1.17 mL [id number] 11/09/26 18450-299-51 AMGEN Comments: The patient presents today for an Evenity 210 mg/2.34 mL injection. We discussed the pros and cons of the injection(s). They have had no prior reaction to this injection, and we discussed possible common reactions. The patient has not been experiencing fever or illness recently. Skin ? Injection site with no erythema, normal-appearing skin The patient tolerated the procedure well. We discussed follow-up precautions including but not limited to injection site redness, swelling, tongue or throat swelling, breathing problems, and fever, and what to do should she experience adverse reactions. The patient was held for post-injection observation. No adverse reaction noted. Assessment & Plan Assessment & Plan Orders: Orders AMB Romosozumab Injection Patient Supplied Today M80.00XD - Age-related osteoporosis with current pathological fracture, unspecified site, subsequent encounter for fracture with routine healing Medications: New romosozumab-aqqg 210 mg (2.34 mL) subcut ONCE 2.34 mL 0RF M80.00XD - Age-related osteoporosis with current pathological fracture, unspecified site, subsequent encounter for fracture with routine healing Coding
--- OUTSIDE RECORDS SUMMARY | 2024-10-22 13:52 | XMS_ITS | Encounter Summary ---
Author Organization [facility] Address [address] [place] [address] Care Team Providers Care Drywall Stripper Helper Name Role Phone Adriana Lin MD Primary Care Provider [phone] Encounter Details Date Type Department Care Team (Late Contact Info) Description 10/21/2024 Telephone [facility] Cardiology [facility] - [facility] [address] [facility] [address] [place] [phone] Rolan Palomino MD [address] [facility] [address] [place] [address] Social History Tobacco Use Types Packs/Day Years [...] on file Sexual Orientation Not on file documented as of this encounter Plan of Treatment Upcoming Encounters Date Type Department Care Team ([facility] Contact Info) Description 10/21/2025 1:30 PM EDT Ancillary Procedure [facility] Cardiology [facility] - [facility] [address] [facility] [address] [place] [phone] documented as of this encounter Visit Diagnoses Not on filedocumented in this encounter Care Teams Drywall Stripper Helper Relationship Specialty Start Date End Date Adriana Lin MD [address] [place] [phone] PCP - General 07/01/20 documented as of this encounter
--- OUTSIDE RECORDS SUMMARY | 2024-10-22 13:53 | XMS_ITS | Clinical Summary ---
Author Organization [facility], Address [address] [facility] [address] [place] [address] Phone Care Team Providers Care Transportation Mechanic Name Role Phone Cynthia Romo Sherrie SMITH [...] age to complete this topic Insurance MEDICARE [facility] Care Teams Transportation Mechanic Relationship Specialty Start Date End Date Cynthia Romo PA-C [address] [place] [address] PCP - General Physician Ibm Bpm Developer 04/25/21
--- OUTSIDE RECORDS SUMMARY | 2024-10-22 13:54 | XMS_ITS | Continuity of Care Document ---
Author Organization [facility], FP, EHC, OFFICE Address [address] [place] [address] Care Team Providers Care Resident Associate Name Role Phone AMANDA CURTIS Chair MARSHA BARNES Primary Care Provider CESIA NEWBY [facility] Verifier Assessment Encounter Date Assessment Date Assessment LastModified by Organization Details LastModified Time 10/16/2024 10/16/2024 We reviewed your chronic medical conditions and updated your plan for management. Please review instructions below. We have discussed your personal goals and discussed how to reach your goals. Please reach out to us via the Portal or phone if you have questions about your chronic conditions or if you or your caregivers require assistance in meeting your goals. Please visit our website [email or web address] for more patient resources. As part of your care plan, we will help coordinate your ongoing medical needs, arrange for durable medical equipment, renew prescriptions and necessary prior authorizations, facilitate getting referrals and collaborating with specialist, referrals for VNA services. [email or web address] Not available 10/09/2024 16:28:16 Plan of Treatment Reminders Order Date Submit Date Provider Last Modified By Organization Details Last Modified Time Details Appointments None recorded. Lab None recorded. Referral None recorded. Procedures None recorded. Surgeries None recorded. Imaging None recorded. Medication Orders oxycodone 5 mg tablet 2024 025 [place][id number], [address] [facility], [place], [address], 03/07/202 5 15:29:40 Patient TargetsNo targets recorded. Patient InstructionsNo instructions recorded. Reason for Referral None Reported. Problems Name Problem SNOMED Code Status Onset Date Resolution Date Notes Provider Name and Address Organization Details Recorded Time Anxiety 00122466 Active Marsha Barnes PA-C [address] [place] [address], [address] , [facility] 2 08:05:37 Ophthalm ic migraine 69869893 Active 2016 Laura Franco NP [address] [place] [address], , [facility] 7 15:17:33 History of urticari a 01142487176 583445 Active 2018 urticari a multifor me Marsha Barnes PA-C [address] [place] [address], , [facility] 9 12:10:16 Sinus bradycar theresa 56128926 Active 2018 pacemake r placed Marsha Barnes PA-C [address] [place] [address], , [facility] 0 10:46:17 Sick sinus syndrome 40232779 Active 2018 pacemake r Marsha Barnes PA-C [address] [place] [address], , [facility] 0 07:37:01 Cardiac pacemake r in situ 306434629 Active 2019 Marsha Barnes PA-C [address] [place] [address], , [facility] 2 08:05:37 Atrial fibrilla tion 25136485 Active 2019 due to pericard itis and now off medicati ons Marsha Barnes PA-C [address] [place] [address], , [facility] 2 08:05:37 Diastoli c dysfunct ion 5240790 Active 2019 Grade 1 Marsha Barnes PA-C [address] [place] [address], , [facility] 0 14:15:34 Acute injury of kidney 37645505694 551378 Active 2020 ATN from colchici ne/ibupr ofen/lis inopril, hydrate, lindsey Wynn g Marsha Barnes PA-C [address] [place] [address], [address] , [facility] 2 10:22:56 Temporal arteriti s 670788285 Active 2021 Dx 2 - started steroids 11/15/2021 ; recurren ce starting Actemra 08/2022, course two years Marsha Barnes PA-C [address] [place] [address], [address] , [facility] 3 09:55:37 Chronic kidney disease stage 3 384228831 Active 2021 GFR = 42.6, 03/12/22 Ashli Armenta, HOUSE PRINCIPAL null, [facility] 2 11:39:45 Erythema multifor me 06396704 Completed 200212/24/2018 Marsha Barnes PA-C [address] [place] [address], [address] , [facility] 9 12:09:56 Extrinsi c asthma with status asthmati cus Completed 200705/31/2011 Not Available [facility] 3 03:11:30 Dyspnea 826877869 Completed 200305/31/2011 Not Available [facility] 3 03:11:30 Essentia l hyperten kaushik 36419824 Active 2002 Laura Franco NP [address] [place] [address], [address] , [facility] 6 15:45:13 Benign essentia l hyperten kaushik 4205454 Completed 200105/31/2011 Not Available [facility] 3 03:11:30 Allergic rhinitis 63239214 Active 2006 Marsha Barnes PA-C [address] [place] [address], [address] , [facility] 2 08:05:37 Influenz a 3725244 Completed 05/31/2011 Not Available [facility] 3 03:34:33 Dizzines s 155215347 Completed 200305/31/2011 Not Available [facility] 3 03:11:30 Major depressi on, melancho lic type 637793071 Active Not Available [facility] 3 03:11:30 Disorder of skeletal system 98715168 Completed 200105/31/2011 Not Available [facility] 3 03:11:30 Pain in throat 182159230 Completed 200705/31/2011 Not Available [facility] 3 03:11:30 Knee pain Completed 200605/31/2011 Not Available [facility] 3 03:11:30 Elevated blood-pr essure reading without diagnosi s of hyperten kuashik 119778548 Completed 200205/31/2011 Not Available [facility] 3 03:11:30 Malaise and fatigue 670948248 Completed 05/31/2011 Not Available [facility] 3 03:11:30 Left upper quadrant pain 970567788 Completed 10/16/2011 Not Available [facility] 3 03:11:30 Subserou s leiomyom a of uterus 39539056 Completed 200205/31/2011 Not Available [facility] 3 03:11:30 Headache 39283355 Completed 200705/31/2011 Not Available [facility] 3 03:11:30 Hyperthy roidism 42886259 Completed 200405/31/2011 Not Available [facility] 3 03:11:30 Uterine leiomyom a 17451588 Completed 200105/31/2011 Not Available [facility] 3 03:11:30 Ganglion of joint 44762338 Completed 200105/31/2011 Not Available [facility] 3 03:11:30 Hip pain 10537733 Completed 10/16/2011 Not Available [facility] 3 03:11:30 Allergic asthma without status asthmati cus 28350026 Active 2004 Marsha Barnes PA-C [address] [place] [address], [address] , [facility] 2 08:05:37 Pure hypercho lesterol emia 488402793 Completed 200205/31/2011 Not Available [facility] 3 03:11:30 Hypertro phic conditio n of skin 58093733 Completed 200805/31/2011 Not Available [facility] 3 03:11:30 Breathin g painful 77099979 Completed 200405/31/2011 Not Available [facility] 3 03:11:30 Finding by method 445768882 Completed 200305/31/2011 Not Available [facility] 3 03:11:30 Breast lump 20681440 Completed 200510/16/2011 Not Available [facility] 3 03:11:30 Acute upper respirat ory infectio n 27148714 Completed 05/31/2011 Not Available [facility] 3 03:11:30 Nonvenom ous insect bite of multiple sites 127400010 Completed 05/31/2011 Not Available [facility] 3 03:11:30 On examinat ion - a rash Completed 200305/31/2011 Not Available [facility] 3 03:11:30 Senile osteopor osis 82297427 Completed 200105/31/2011 Not Available [facility] 3 03:11:30 Herpes zoster 6091660 Completed 200210/16/2011 Not Available [facility] 3 03:11:30 Osteopor osis 29207940 Active 2001 Dx 02/2022, does not want to start medicati ons Marsha Barnes PA-C [address] [place] [address], [address] , [facility] 2 10:39:40 Menopaus al symptom 10034656 Completed 200105/31/2011 Not Available [facility] 3 03:11:30 Benign neoplasm of skin 48891471 Completed 05/31/2011 Not Available [facility] 3 03:11:30 Migraine 91157041 Completed 10/16/2011 Not Available [facility] 3 03:11:30 Streptoc occal sore throat 27722227 Completed 200705/31/2011 Not Available [facility] 3 03:11:30 Viral upper respirat ory tract infectio n 264091174 Completed 200705/31/2011 Not Available [facility] 3 03:11:30 Problem Notes None recorded. Procedures Surgical History Date Name Laterality Status Provider Name and Address Organization Details Recorded Time 11/27/19 24 G2211 completed WILLA Grant [address] [place] [address], [phone], [facility] 11/27/2023 11:03:32 06/05/20 23 Medicare Wellness Visit completed Kellen Meza [facility] 04/18/2023 09:30:54 06/05/20 23 Asthma Control Test (12 + years old) completed Kellen Meza [facility] 04/18/2023 09:31:10 06/05/20 23 Advanced Care Planning completed Kellen Meza [facility] 04/18/2023 09:31:00 07/16/20 22 Asthma Control Test (12 + years old) completed Kellen Meza [facility] 07/16/2022 08:29:27 03/16/20 22 [facility] 09:17:39 03/16/20 22 Alcohol use screening completed [facility] 03/16/2022 09:17:39 03/16/20 22 Advanced Care Planning completed Marsha Barnes PA-C [address] [place] [address], [address], [facility] 03/16/2022 12:46:19 11/18/19 22 biopsy of temporal artery completed Marsha Barnes PA-C [address] [place], [address], [facility] 11/20/2021 07:44:20 09/15/19 22 Asthma Control Test (12 + years old) completed Krista Shay [facility] 09/15/2021 10:13:57 02/11/20 21 Medicare Wellness Visit completed Nimo Worthington MA [facility] 02/08/2021 13:47:52 02/11/20 21 prevention-card iovascular risk reduction counseling completed Nimo Worthington MA [facility] 02/08/2021 13:47:52 02/11/20 21 prevention-howard al alcohol misuse screening completed Nimo Worthington MA [facility] 02/08/2021 13:47:52 02/11/20 21 Asthma Control Test (12 + years old) completed Marsha Barnes PA-C [address] [place], [address], [facility] 02/14/2021 13:40:34 07/14/20 20 72291: Therapeutic Exercise completed Shana Schofield, PT [address] [place], [address], [facility] 07/17/2020 19:32:09 07/06/20 20 24868: Therapeutic Exercise completed Shana Schofield, PT [address] [place], [address], [facility] 07/06/2020 08:04:57 06/29/20 20 Physical Activity Counselling completed Shana Schofield, PT [address] [place], [address], [facility] 07/05/2020 23:15:20 06/29/20 20 70687: PT Eval Low Complexity completed Shana Schofield, PT [address] [place], [address], [facility] 07/05/2020 23:15:25 02/08/20 20 Medicare Wellness Visit completed Rebecca Laws MA [facility] 02/05/2020 16:42:35 02/08/20 20 prevention-card iovascular risk reduction counseling completed Rebecca Laws MA [facility] 02/05/2020 16:42:35 02/08/20 20 prevention-howard dueñas alcohol misuse screening completed Rebecca Laws MA [facility] 02/05/2020 16:42:35 02/08/20 20 Asthma Control Test (12 + years old) completed Marsha Barnes PA-C [address] [place] [address], [address], [facility] 02/09/2020 12:18:47 02/07/20 19 Medicare Wellness Visit completed Rebecca Laws MA [facility] 02/06/2019 14:33:58 12/29/19 19 POC Strep Testing completed Latosha Delcid MA [facility] 12/28/2018 09:16:54 09/16/19 19 Medicare Risk for Falls Screen completed Rebecca Laws MA [facility] 09/16/2018 14:38:15 01/31/20 18 Medicare Wellness Visit completed Ashli Pacheco MA [facility] 01/30/2018 14:53:22 01/10/20 17 Medicare Wellness Visit completed Ashli Pacheco MA [facility] 01/09/2017 14:35:04 01/06/20 16 Medicare Wellness Visit completed Ashli Pacheco MA [facility] 01/06/2016 14:21:09 01/05/20 15 Medicare Wellness Visit completed Ashli Pacheco MA [facility] 01/04/2015 10:33:42 03/03/20 14 Tassoni - EGD completed Emory Leo MD [address] [place] [address], [address], [facility] 03/03/2014 11:58:35 12/30/19 14 Medicare Wellness Visit completed Ashli Pacheco MA [facility] 12/29/2013 09:45:55 12/30/19 14 Asthma Control Test (12 + years old) completed Laura Franco NP [address] [place] [address], [address], [facility] 12/29/2013 10:31:15 12/27/19 13 Medicare Wellness Visit completed Ashli Pacheco MA [facility] 12/26/2012 09:31:06 12/27/19 13 Asthma Control Test (12 + years old) completed Ashli Pacheco MA [facility] 12/26/2012 09:42:38 05/21/20 12 Asthma Control Test (12 + years old) completed Laura Franco NP [address] [place] [address], [address], [facility] 05/21/2012 14:22:52 10/24/19 12 Medicare Wellness Visit completed Ashli Pacheco MA [facility] 10/24/2011 15:04:21 02/08/20 09 Treatment and Advice completed Ashley Mota, PT [address] [place], [address], [facility] 02/07/2009 11:03:34 11/16/19 09 Skin Tag Removal (each additional 10) completed Haley Saba MD [address] [place] [address], [address], [facility] 11/15/2008 16:09:59 08/12/18 70 Bladder Surgery completed Adelaida Rose [facility] 12/17/2014 08:38:13 Pmkr, dual, rate-resp completed Marsha Barnes PA-C [address] [place] [address], [address], [facility] 12/31/2019 14:16:27 Imaging Results None recorded. Procedure Notes None recorded. Medical Equipment None Reported. Allergies Allergen ID Allergen Name Allergen Category Reaction Reaction Severity Criticality Documentation Date Start Date Code Code System Note Provider Name and Address Organization Details Recorded Time 207610 atovaquon e / proguanil medicatio n itching Not available Not available 12/26/2012 96369 3 RxNorm Laura Franco NP [address] [place], [place] [address], [address], [facility] 3 09:51:17 529154 Wixela medicatio n other moderate Not available 02/07/2019 20040 06 RxNorm sever e muscl e cramp s lasti ng three hours Marsha Barnes PA-C [address] [place], [place] [address], [address], [facility] 9 06:43:03 6489 erythromy brenda medicatio n rash Not available Not available 11/01/2008 4053 RxNorm Not Available [facility] 1 06:05:20 Medications Name Sig Start Date [...] 5 mg tablet TAKE 1 TABLET DAILY 10/16 completed pt not taking this only taking 3 mg 10/16/24 mp Not Available Not Available Not Available methylpre dnisolone 4 mg tablet Take 1 tablet twice a day by oral route as needed. 01/09 completed currentl y not taking Not Available Not Available Not Available omeprazol e 40 mg capsule,d elayed release QD 11/26 completed Not Available Not Available Not Available aspirin 81 mg tablet,de layed release 11/05 completed Not Available Not Available Not Available triamcino lone acetonide 0.1 % topical cream APPLY TO AFFECTED AREAS TWICE A DAY FOR 2 WEEKS THEN NEEDED FOR FLARES active Not Available Not Available No t Available Gentak 0.3 % (3 mg/gram) eye [...] DAY BY ORAL ROUTE FOR 30 DAYS. active pt now taking only 3 tablets 10/16/24 mp Not Available Not Available Not Available benzonata te 100 mg capsule TAKE 1 [...] e 50 mcg/actua tion nasal spray,[employer] [place] 1-2 sprays in each nostril once daily 2010 active Not Available Not Available Not Avai lable lisinopri l 2.5 mg tablet TAKE 1 TABLET DAILY 2024 active Not Available Not Available Not Avai lable doxycycli ne hyclate 100 mg tablet TAKE 2 TABLETS BY MOUTH ONCE FOR 1 DAY 02/27 completed Not Available Not Available Not Available amoxicill in 875 mg-potass ium clavulana te 125 mg tablet TAKE 1 TABLET BY MOUTH EVERY 12 HOURS FOR 5 DAYS 10/19 completed gave pt diarrea 10/19/21 ds Not Available Not Available Not Available oxycodone 5 mg tablet Take 1 tablet every 6 hours by oral route as needed. 2024 active Not Available Not Available Not Avai lable magnesium 200 mg tablet Take 2 tablets [...] Available No t Available omeprazol e active pt not taking 10/16/24 mp Not Available Not Available Not Available Vitamin D3 1000 IU daily active Not Available Not Available No t Available multivita min 11/01 completed qd Not Available Not Available Not Available Tracks.byuxe Digital Monitor kit 2007 active use as [...] 1.17 mL subcutan eously once a month active Not Available Not Available No t Available Evenity dose unknown, 1 shots per month by Rheum active Not Available Not Available No t Available Afluria Qd 2019- (36 mos up)(PF)60 mcg (15 mcg x4)/0.5 [...] height Body mass index (BMI) Body weight Oxygen saturation Oxygen saturation in Arterial blood by Pulse oximetry Heart rate Systolic blood pressure Diastolic blood pressure Provider Name and Address Organization Details Last Updated DateTime 5 162.56 cm 20.8 kg/m2 53441.0 8 g 99 % 99 % 66 /min 118 mm[Hg] 64 mm[Hg] Ginny Mcdaniel, [facility] 5 11:00:28 Social History Question Answer Notes LastModified by Organizat ion Details LastModified Time Tobacco Smoking Status Former Smoker quit in her 20's Gerri Hamlin nathan, [facility] 12/29/2010 15:05:32 Do You Have An Advance Directive? No [email or web address] Information not available 10/18/2011 What Is Your Level Of Alcohol Consumption? Moderate Information not available 08/06/2013 How Much Tobacco Do You Chew? None Information not available 09/20/2011 Are You Currently Employed? No retired [email or web address] Information not available 06/05/2023 What Type Of Diet Are You Following? REGULAR Information not available 09/20/2011 Do You Or Have You Ever Used E-cigarettes Or Vape? Never Used Electronic Cigarettes Information not available 11/17/2019 Education Post Graduate Information not available 01/04/2015 What Is The Highest Grade Or Level Of School You Have Completed Or The Highest Degree You Have Received? 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 Yes Is Worried Abt Partner [email or web address] Information not available 06/05/2023 When Did You Quit Smoking? 16+yearssincel [email or web address] Information not available 04/20/2015 How Many Days In The Past Year Have You Had A Heavy Drinking Consumption (4+ Female, 5+ Male)? 0 Information not available 04/20/2015 Are There Any Guns Present In Your Home? No Information not available 09/20/2011 Do You Use Insect Repellent Routinely? Yes [email or web address] Information not available 06/05/2023 Live Alone Or With Others? With Others Information not available 09/20/2011 Have Your Ever Had Any Service? No Information not available 10/16/2024 Patient Has Health Care Proxy Signed And In Chart Yes Information not available 02/16/2021 MOLST Form Signed And In Chart 02/10/2021 Information not available 02/16/2021 CCM Consent Discussion 03/16/2022 [email or web address] Information not available 03/16/2022 Marital Status Domestic Partner Belia Aceves' Information not available 08/15/2010 Mosquito Repellent Used Routinely Yes Information not available 09/20/2011 What Was The Date Of Your Most Recent Tobacco Screening? 10/16/2024 Information not available 10/16/2024 How Many Children Do You Have? 0 Information not available 09/20/2011 What Is Your Current Pack Years? [email or web address] Information not available 04/20/2015 What Is Your Relationship Status? Domestic Partner Anne [email or web address] Information not available 06/05/2023 Do You Use Your Seat Belt Or Car Seat Routinely? Yes Information not available 06/05/2023 Seat Belts Used Routinely Yes Information not available 09/20/2011 Smoke Alarm In Home Yes Information not available 09/20/2011 Do You Have Smoke And Carbon Monoxide Detectors In Your Home? Yes [email or web address] Information not available 06/05/2023 Are You Passively Exposed To Smoke? No [email or web address] Information not available 06/05/2023 Do You Or [...] Time What is your exercise level? Moderate [email or web address] Information not available 06/05/2023 Mental Status None recorded. Family History Relationship Description Onset Age of this Age Resolved Age Notes LastModified by Organization Details LastModified Time Father Parkinson's disease [email or web address] Not available 2014 13:20:13 Mother Osteoporosis [email or web address] Not avail able 04/20/2015 13:20:13 Mother Malignant tumor of lung [email or web address] Not available 2018 14:45:12 Brother Dentin dysplasia, type II [email or web address] Not available 2018 14:44:56 Brother Type 2 diabetes mellitus [email or web address] Not available 2019 14:32:05 Maternal Aunt Malignant tumor of breast [email or web address] Not available 2018 14:45:22 Medical History Condition [...] preservative free, adsorbed 2 completed Not Available [facility] 08/29/2019 02:31:14 Influenza, split virus, trivalent, PF 3 completed Not Available [facility] 08/29/2019 02:35:41 Hep A, adult 3 completed Not Available [facility] 08/29/2019 02:33:40 typhoid, oral 3 completed Not Available [facility] 05/04/2021 14:55:06 Hep A, adult 3 completed Not Available [facility] 05/04/2021 14:55:06 Influenza, high-dose, trivalent, PF 9 completed Not Available [facility] 08/29/2019 02:25:06 Pneumococcal conjugate PCV 13 9 completed Not Available [facility] 08/29/2019 02:23:36 Influenza, high-dose, quadrivalent, PF 0 completed Marylu Arita CMA null, [facility] 06/14/2020 13:42:09 Td (adult), 2 Lf tetanus toxoid, preservative free, adsorbed 2 completed Marbella Osorio MA null, [facility] 09/19/2021 11:52:55 pneumococcal polysaccharide PPV23 2 completed Eliz Thapa RN BSN [facility], [facility] 09/25/2021 10:15:04 zoster recombinant 1 completed DAVE Enriquez null, [facility] 10/09/2024 16:27:25 zoster recombinant 0 completed Not Available [facility] 05/04/2021 14:55:06 COVID-19, mRNA, LNP-S, PF, 30 mcg/0.3 mL dose 1 [facility] 16:28:05 Influenza, high-dose, quadrivalent, PF 2 completed Ami Pena RMA [facility] 06/04/2022 10:47:04 COVID-19, mRNA, LNP-S, bivalent, PF, 50 mcg/0.5 mL or 25mcg/0.25 mL dose 3 completed Eliz Thapa RN BSN [facility] 12/27/2022 14:08:17 COVID-19, mRNA, LNP-S, PF, 30 mcg/0.3 mL dose 1 completed Kellen Meza RMA [facility] 10/09/2024 16:28:05 Influenza, high-dose, trivalent, PF 1 completed [facility] 10/09/2024 16:28:05 COVID-19, mRNA, LNP-S, PF, 30 mcg/0.3 mL dose 1 completed Kellen Meza RMA [facility] 10/09/2024 16:28:05 COVID-19, mRNA, LNP-S, PF, 30 mcg/0.3 mL dose 2 completed Ciara Gonzalez LPN [facility] 04/30/2022 08:35:08 COVID-19, mRNA, LNP-S, PF, 100 mcg/0.5mL dose or 50 mcg/0.25mL dose 3 completed [facility] 05/20/2023 14:47:18 zoster recombinant 0 completed [facility] 10/09/2024 16:27:25 Influenza, adjuvanted, quadrivalent, PF 3 completed [place]ellen [place], RMA null, [facility] 10/09/2024 16:28:05 COVID-19, mRNA, LNP-S, bivalent, PF, 30 mcg/0.3 mL dose 2 completed Kellen Meza, RMA null, [facility] 10/09/2024 16:28:05 RSV, recombinant, protein subunit RSVpreF, adjuvant reconstituted, 0.5 mL, PF 3 completed [facility] [facility] 10/09/2024 16:28:05 COVID-19, mRNA, LNP-S, PF, 50 mcg/0.5 mL 3 [facility] 16:28:05 COVID-19, subunit, rS-nanoparticle, adjuvanted, PF, 5 mcg/0.[address] [facility] 10/09/2024 16:28:05 Influenza, split virus, quadrivalent, PF [facility] 10/09/2024 16:28:05 Past Encounters Encounter ID Performer Location Encounter Start Date Encounter Closed Date Diagnosis/Indication Diagnosis SNOMED-CT Code Diagnosis ICD10 Code Diagnosis Note [id number] Marsha Barnes PA-C , [facility], OFFICE [address] [place] [phone] 10/16/2024 10:50:40 10/16/2024 16:15:09 Active or passive immunization [id number] Z23 Pt will check with Rheum prior to getting any vaccinesFl u: pt declined today 10/16/24 mp Temporal arteritis [id number] M31.6 Arthritis managed with prednisone . Recent flare-up required increased dosage. Stress contribute s to pain. Neurologis t referral considered for persistent pain.- Continue prednisone at 3 mg daily.- Has been referred to a neurologis t for further evaluation of pain. 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 Discussed potential support from [facility] and [facility].- Contact [facility] for SAMPLE TAKER OPERATOR hours and house cleaning support.- Explore [facility] for additional support.- Consider joining a caregiver support group at [facility]. Dysesthesia of scalp [phone] [id number] R20.8 Persistent pain likely due to chronic pain syndrome with nerve activation . Discussed potential use of duloxetine or gabapentin for nerve pain management .- Discuss potential use of duloxetine or gabapentin to manage nerve pain.- Consider low-dose pain medication if necessary. Chronic ki dney disease stage 3 [id number] N18.30 - stable and monitoring with nephrology - avoids NSAIDs and is well hydrated Health Concerns Section Related Observation LastModified by Organization Detai ls LastModified Time None Recorded Concern Status LastModified by Organization Details LastModified Time None Recorded Payers Encounter Date Sequence Insurance Name Policy Number Policy Herrera Covered Member ID Herrera Member ID Guarantor Name 10/16/2024 2 [place] [employer] 111 Alyssa Estrada [id number] Alyssa Estrada 10/16/2024 1 [place] [employer] Alyssa Estrada [id number] Alyssa Estrada Notes Date Note Type Note Provider Name and Address Organization Details Recorded Time 10/16/2024 text/html The patient is a 79 year old with arthritis who presents with pain management issues and caregiver stress. The patient experiences significant stress and burnout due to caregiving responsibilities, which has exacerbated her arthritis pain. A recent flare-up required increasing her prednisone dose from 2 mg to 8 mg, and she has since tapered back down to 3 mg over two months. Despite this, she continues to experience pain, particularly in the head and jaw, similar to previous episodes. She is concerned about the possibility of other underlying issues, as her recent lab results, including a sed rate of 0.10, are good. She mentions a recent episode of skin blisters and welts that occurred at the end of August while in [place]. Initially suspecting bed bugs, an chocolate dipper found no evidence. She visited urgent care and was tested for pemphigus, which was negative. The blisters improved with topical treatment after returning home and stopping exposure to mulch that may have contained chiggers. 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 The individual is in constant pain, unable to walk, and depressed. Previous treatments like gabapentin worsened the individual's memory, and she is considering low-dose pain medication as other options have been ineffective. She feels overwhelmed by the caregiving responsibilities and is seeking additional support services. Marsha Barnes PA-C [address] [place] [address], [phone], [facility] 10/19/2024 08:41:34 OBGyn Episode No OBEpisode recorded.
--- OUTSIDE RECORDS SUMMARY | 2024-10-22 13:54 | XMS_ITS | Encounter Summary ---
Author Organization [facility] Address [address] [place] [address] Care Team Providers Care Literary Agent Name Role Phone Adriana Lin MD Primary Care Provider [phone]- [phone] Encounter Details Date Type Department Care Team (Late st Contact Info) Description 10/21/2024 2:35 PM EDT Ancillary Procedure [facility] Cardiology [facility] [address] [facility] [address] [place] [phone] Arrived Social History Tobacco Use Types Packs/Day Years [...] Encounters Date Type Department Care Team (Late Contact Info) Description 10/21/2025 1:30 PM EDT Ancillary Procedure [facility] Cardiology [facility] [address] [facility] [address] [place] [phone] documented as of this encounter Procedures Procedure Name Priority Date/Time Associated Diagnosis Comments CARDIAC DEVICE CHECK- REMOTE- MURJ Routine 10/21/2024 2:30 PM EDT documented in this encounter Results * Cardiac device check - Remote- MURJ (10/21/2024 2:30 PM EDT) Date Time Interrogation Session [id number] CV DEVICE CHECK Type Interrogation Session Remote Scheduled CV DEVICE CHECK Implantable Pulse Generator Emergency [facility] CV DEVICE CHECK Implantable Pulse Generator Type IPG CV DEVICE CHECK Implantable Pulse Generator Model 2272 Assurity MRI(TM) CV DEVICE CHECK Implantable Pulse Generator Serial Number [id number] CV DEVICE CHECK Implantable Pulse Generator Implant Date 20190831 CV DEVICE CHECK Battery Remaining Percentage 44.00 CV DEVICE CHECK Battery Remaining Longevity 52.0 CV DEVICE CHECK Battery Voltage 2.980 CV D EVICE CHECK Battery PEDIATRIC PSYCHIATRIST Trigger 2.600 CV DEVICE CHECK Battery Status Middle of Service CV DEVICE CHECK Epifanio Statistic RA Percent Paced 86.00 CV DEVICE CHECK Epifanio Statistic RV Percent Paced 24.00 CV DEVICE CHECK Atrial Tachy Statistic AT/AF [place] Percent 1.00 CV DEVICE CHECK Lead Channel Sensing Intrinsic Amplitude 1.300 CV DEVICE CHECK Lead Channel Setting Sensing Sensitivity 0.30 CV DEVICE CHECK Lead Channel Impedance Value 440 CV DEVICE CHECK Lead Channel Pacing Threshold Amplitude 0.500 CV DEVICE CHECK Lead Channel Pacing Threshold Pulse Width 0.5 CV DEVICE CHECK Lead Channel RA Pacing Threshold Date 2024-10-20 CV DEVICE CHECK Lead Channel Setting Pacing Amplitude 1.500 CV DEVICE CHECK Lead Channel Setting Pacing Pulse Width 0.5 CV DEVICE CHECK Lead Channel Sensing Intrinsic Amplitude 10.500 CV DEVICE CHECK Lead Channel Setting Sensing Sensitivity 0.50 CV DEVICE CHECK Lead Channel Impedance Value 480 CV DEVICE CHECK Lead Channel Pacing Threshold Amplitude 1.125 CV DEVICE CHECK Lead Channel Pacing Threshold Pulse Width 0.5 CV DEVICE CHECK Lead Channel RV Pacing Threshold Date 2024-10-20 CV DEVICE CHECK Lead Channel Setting Pacing Amplitude 1.375 CV DEVICE CHECK Lead Channel Setting Pacing [...] 180 CV DEVICE CHECK Date of Service 2024-11-03 CV DEVICE CHECK Anatomical Region Laterality Modality Device Interroga tion 10/20/2024 2:00 AM EDT Impressions 10/21/2024 2:28 PM EDT Normal Remote: With Events * Normal Device Function * Events or Alerts: 15 PAF / Longest 1 hour 5 min / No OAC * Battery: Battery is at 44%, 4.33 yrs * Sensing, impedance and thresholds reviewed * Programmed parameters reviewed * Presenting rhythm reviewed * Heart Rate Histograms reviewed Additional Notes: no OAC 1 hour of AF 09/22/24 not reported ??Candelario's note in July says Elisunis but I called patient and she says she has never taken it?? Narrative Procedure Note Rebecca Lynn, ERIN - 10/21/2024 IMPRESSION: Normal Remote: With Events * Normal Device Function * Events or Alerts: 15 PAF / Longest 1 hour 5 min / No OAC * Battery: Battery is at 44%, 4.33 yrs * Sensing, impedance and thresholds reviewed * Programmed parameters reviewed * Presenting rhythm reviewed * Heart Rate Histograms reviewed Additional Notes: no OAC 1 hour of AF 09/22/24 not reportedCandelario's note in July says Eliquis but I called patient and she saysshe has never taken it?? Rebecca Lynn NP CV IMPLANTABLE CARDIAC DEVIC E PROCEDURES Final Result documented in this encounter Visit Diagnoses Not on filedocumented in this encounter Care Teams Literary Agent Relationship Specialty Start Date End Date Adriana Lin MD [address] [place] [phone] PCP - General 07/01/20 documented as of this encounter
--- OUTSIDE RECORDS SUMMARY | 2024-10-22 13:54 | XMS_ITS | Encounter Summary ---
Author Organization [facility] Address [address] [place] [address] Care Team Providers Care Automatic Beading Lathe Operator Name Role Phone Adriana Lin MD Primary Care Provider [phone]- [phone] Encounter Details Date Type Department Care Team (Late st Contact Info) Description 10/21/2024 Telephone [facility] - [address] [place] [address] Rebecca Lynn NP [address] [place] [address] Social History Tobacco Use Types Packs/Day Years [...] on file documented as of this encounter Progress Notes * Rebecca Lynn NP - 10/21/2024 10:31 AM EDT Remote download received October 20, report included an episode of atrial fibrillation occurring on February 11 at 447 in the morning with a duration of 1 hour. No subsequent events We are investigating why alert was not received/processed Device implanted August 31, 2019, at that time she had a documented episode of atrial fibrillationwas prescribed flecainide, beta-caty and Eliquis. With continued maintenance of sinus rhythm all3 of these agents were discontinued Patient confirmed that she is not currently anticoagulated documented in this encounter Plan of Treatment Upcoming Encounters Date Type Department Care Team (Late st Contact Info) Description 10/21/2025 1:30 PM EDT Ancillary Procedure [facility] [address] [place] [address] documented as of this encounter Visit Diagnoses Not on filedocumented in this encounter Care Teams Automatic Beading Lathe Operator Relationship Specialty Start Date End Date Adriana Lin MD [address] [place] [phone] PCP - General 07/01/20 documented as of this encounter
--- OUTSIDE RECORDS SUMMARY | 2024-10-22 13:54 | XMS_ITS | Clinical Summary ---
Author Organization [address] [place] [address] [place] [phone] Phone Care Team Providers Care Batch Weigher Name Role Phone Adriana Lin MD Primary [...] into the skin once a week. Active apixaban (Eliquis) 2.5 mg tablet Take 1 tablet (2.5 mg total) by mouth 2 (two) times a day. 60 each 3 5 02/19/20 25 Active Active Problems Problem Noted Date Diagnosed Date Sick sinus syndrome 01/30/2022 Temporal arteritis 01/30/2022 Acute pericarditis 07/25/2020 Bradycardia 07/25/2020 Essential hypertension 07/25/2020 PAF (paroxysmal atrial fibrillation) 07/25/2020 Encounters Date Type Department Care Team Description 10/21/2024 2:35 PM EDT Ancillary Procedure [facility] Cardiology [facility] [address] [place] [address] Arrived 10/21/2024 Telephone [facility] Cardiology [facility] - [address] [place] [address] Rolan Palomino MD 10/21/2024 Telephone [facility] Cardiology [facility] - [address] [place] [address] Rebecca Lynn NP 10/20/2024 2:30 PM EDT Ancillary Procedure [facility] Cardiology [facility] - [address] [place] [address] Encounter for adjustment or management of cardiac device from Last 3 Months Social History Tobacco [...] Description 10/21/2025 1:30 PM EDT Ancillary Procedure [facility] - [address] [facility] [address] [place] [address] Health Maintenance Due Date Last Done Comments Cholesterol Screening (Lipid Panel) 07/21/2022 05/23/2007, 04/19/2006, 03/01/2005, Additional history exists Depression Screening 07/21/2022 Falls Risk Assessment 07/21/2022 Hepatitis C Screening 07/21/2022 Osteoporosis Screening (Bone Density Screening) 07/21/2022 Social Influencers of Health Screening 07/21/2022 Influenza Vaccine (#1) 2024 , 06/04/2022, 07/28/2021, Additional history exists Medicare Annual Wellness Visit 06/05/2024 06/05/2023 Hypertension/CHF/CAD Annual BMP Blood Test 05/11/2025 05/11/2024, 05/16/2009, 10/25/2008, Additional history exists DTaP,Tdap,and Td Vaccines (3 - Td or [...] this topic Medical Devices Implanted Type Area Space Planner Device Identifier Shelf Expiration Date Model / Serial / Lot Tremayne 2272 Assurity Mri(Tm) [id number] Implanted: by Tomas Ornelas MD (Quantity not on file) Cardiac Pacemaker Left: Chest [facility] 2272 ASSURITY MRI(TM) / [id number] / Procedures Procedure Name Priority Date/Time Associated Diagnosis Comments CARDIAC DEVICE CHECK- REMOTE- MURJ Routine 10/21/2024 2:30 PM EDT ANNUAL BMP BLOOD TEST Routine 05/11/2024 from Last 3 Months or Most Recently Relevant to Health Maintenance Results * Cardiac device check - Remote- MURJ (10/21/2024 2:30 PM EDT) Date Time Interrogation Session [id number] CV DEVICE CHECK Type Interrogation Session Remote Scheduled CV DEVICE CHECK Implantable Pulse Generator Space Planner [employer] CV DEVICE CHECK Implantable Pulse Generator Type IPG CV DEVICE CHECK Implantable Pulse Generator Model 2272 Assurity MRI(TM) CV DEVICE CHECK Implantable Pulse Generator Serial Number [id number] CV DEVICE CHECK Implantable Pulse Generator Implant Date 20190831 CV DEVICE CHECK Battery Remaining Percentage 44.00 CV DEVICE CHECK Battery Remaining Longevity 52.0 CV DEVICE CHECK Battery Voltage 2.980 CV D EVICE CHECK Battery FLUID JET CUTTER OPERATOR Trigger 2.600 CV DEVICE CHECK Battery Status Middle of Service CV DEVICE CHECK Epifanio Statistic RA Percent Paced 86.00 CV DEVICE CHECK Epifanio Statistic RV Percent Paced 24.00 CV DEVICE CHECK Atrial Tachy Statistic AT/AF [place] Percent 1.00 CV DEVICE CHECK Lead Channel [...] not reported ??Candelario's note in July says Waqas but I called patient and she says she has never taken it?? Narrative Procedure Note Rebecca Lynn NP - 10/21/2024 IMPRESSION: Normal Remote: With Events [...] 09/22/24 not reportedCandelario's note in July says Waqas but I called patient and she saysshe has never taken it?? Rebecca Lynn DISTRIBUTION COLLECTION OPERATOR CV IMPLANTABLE CARDIAC DEVIC E PROCEDURES Final Result * Annual BMP Blood Test (05/11/2024) Annual BMP Blood Test Abstracted us Historical Provider HEALTH MAINTENANCE Final Result from Last 3 Months or Most Recently Relevant to Health Maintenance Insurance MEDICARE [facility] Care Teams Batch Weigher Relationship Specialty Start Date End Date Adriana Lin MD [address] [place] [phone] PCP - General 07/01/20
--- OUTSIDE RECORDS SUMMARY | 2024-10-22 13:54 | XMS_ITS | Encounter Summary ---
Author Organization [facility] Address [address] [place] [address] Care Team Providers Care Superintendent Automotive Name Role Phone Adriana Lin MD Primary Care Provider [phone]- [phone] Encounter Details Date Type Department Care Team (Latest Contact Info) Description 10/20/2024 2:30 PM EDT Ancillary Procedure [facility] Cardiology [facility] [address] [facility] [address] [place] [address] Encounter for adjustment or management of cardiac device Social History Tobacco Use Types Packs/Day Years [...] Description 10/21/2025 1:30 PM EDT Ancillary Procedure [facility] Cardiology [facility] [address] [place] [phone] Pending Results Name Type Priority Associated Diagnoses Date /Time Cardiac device check - In Clinic Implantable Cardiac Device Routine Encounter for adjustment or management of cardiac device 10/20/2024 2:18 PM EDT Scheduled Orders Name Type Priority Associated Diagnoses Order Schedule Cardiac device check - In Clinic Implantable Cardiac Device Routine Encounter for adjustment or management of cardiac device 1 Occurrences starting 05/28/2024 until 05/28/2026 documented as of this encounter Visit Diagnoses Diagnosis Encounter for adjustment or management of cardiac device Encounter for adjustment or management of cardiac device documented in this encounter Care Teams Superintendent Automotive Relationship Specialty Start Date End Date Adriana Lin MD [address] [place] [phone] PCP - General 07/01/20 documented as of this encounter
== END 2024-10-22 11:49 | disposition home or self-care (01) ==
LOC: HO.RHES 10:52
PROVIDERS: PCP Physician Assistant Medical; Visit Provider Internal Medicine Rheumatology
DX: M80.00XD Age-related osteoporosis with current pathological fracture, unspecified site, subsequent encounter for fracture with routine healing (principal)

== ENCOUNTER 2024-10-22 10:51 | Outpatient (REF) | payer MEDICARE, BC, SELFPAY ==
--- OUTSIDE RECORDS SUMMARY | 2024-10-22 15:20 | XMS_ITS | Encounter Summary ---
[facility] Organization [facility] Address [address] [place] [address] Care Team Providers Care Garage Mechanic Name Role Phone Adriana Lin MD Primary Care Provider +1- [phone] Encounter Details Date Type Department Care Team (Latest Contact Info) Description 10/20/2024 2:30 PM EDT Ancillary Procedure [facility] [address] [facility] [address] [place] [address] Encounter for adjustment or management [...] 10/21/2025 1:30 PM EDT Ancillary Procedure [facility] Cardiology [facility] [address] [place] [address] Pending Results Name Type Priority Associated Diagnoses [...] device documented in this encounter Care Teams Garage Mechanic Relationship Specialty Start Date End Date Adriana Lin MD [address] [place] [phone] PCP - General 07/01/20 documented as of this encounter
--- OUTSIDE RECORDS SUMMARY | 2024-10-22 15:20 | XMS_ITS | Clinical Summary ---
Author Organization [facility], Address [address] [facility] [address] [place] [address] Phone Care Team Providers Care Silo Man Name Role Phone Cynthia Romo Sherrie SMITH [...] age to complete this topic Insurance MEDICARE [facility] Care Teams Silo Man Relationship Specialty Start Date End Date Cynthia Romo PA-C [address] [place] [address] PCP - General Physician Broom Man 04/25/21
--- OUTSIDE RECORDS SUMMARY | 2024-10-22 15:20 | XMS_ITS | Clinical Summary ---
Author Organization [address] [place] [address] [place] [phone] Phone Care Team Providers Care Churn Tender Name Role Phone Adriana Lin MD Primary [...] Description 10/21/2024 2:35 PM EDT Ancillary Procedure [facility] Cardiology [facility] - [address] [place] [address] Arrived 10/21/2024 Telephone [facility] Cardiology [facility] - [address] [place] [address] Rolan Palomino MD 10/21/2024 Telephone [facility] Cardiology [facility] - [address] [place] [address] Rebecca Lynn NP 10/20/2024 2:30 PM EDT Ancillary Procedure [facility] Cardiology [facility] - [address] [place] [address] Encounter for adjustment or management of cardiac [...] Description 10/21/2025 1:30 PM EDT Ancillary Procedure [facility] - [address] [facility] [address] [place] [address] Health Maintenance Due Date Last [...] this topic Medical Devices Implanted Type Area Plate Stacker Device Identifier Shelf Expiration Date Model / Serial / Lot Tremayne 2272 Assurity Mri(Tm) [id number] Implanted: by Tomas Ornelas MD (Quantity not on file) Cardiac Pacemaker Left: Chest [facility] 2272 ASSURITY MRI(TM) / [id number] / Procedures Procedure Name Priority Date/Time Associated Diagnosis Comments CARDIAC DEVICE CHECK- REMOTE- MURJ Routine 10/21/2024 2:30 PM EDT ANNUAL BMP BLOOD TEST Routine 05/11/2024 from Last 3 Months or Most Recently Relevant to Health Maintenance Results * Cardiac device check - Remote- MURJ (10/21/2024 2:30 PM EDT) Date Time Interrogation Session [id number] CV DEVICE CHECK Type Interrogation Session Remote Scheduled CV DEVICE CHECK Implantable Pulse Generator Plate Stacker [employer] CV DEVICE CHECK Implantable Pulse Generator Type IPG CV DEVICE CHECK Implantable Pulse Generator Model 2272 Assurity MRI(TM) CV DEVICE CHECK Implantable Pulse Generator Serial Number [id number] CV DEVICE CHECK Implantable Pulse Generator Implant Date 20190831 CV DEVICE CHECK Battery Remaining Percentage 44.00 CV DEVICE CHECK Battery Remaining Longevity 52.0 CV DEVICE CHECK Battery Voltage 2.980 CV D EVICE CHECK Battery CUSHION MAT MAKER Trigger 2.600 CV DEVICE CHECK Battery Status Middle of Service CV DEVICE CHECK Epifanio Statistic RA Percent Paced 86.00 CV DEVICE CHECK Epifanio Statistic RV Percent Paced 24.00 CV DEVICE CHECK Atrial Tachy Statistic AT/AF [place] Percent 1.00 CV DEVICE CHECK Lead Channel [...] saysshe has never taken it?? Rebecca Lynn WELDING MACHINE OPERATOR ARC CV IMPLANTABLE CARDIAC DEVIC E PROCEDURES Final Result * Annual BMP Blood Test (05/11/2024) Annual BMP Blood Test Abstracted us Historical Provider HEALTH MAINTENANCE Final Result from Last 3 Months or Most Recently Relevant to Health Maintenance Insurance MEDICARE [facility] Care Teams Churn Tender Relationship Specialty Start Date End Date Adriana Lin MD [address] [place] [phone] PCP - General 07/01/20
--- OUTSIDE RECORDS SUMMARY | 2024-10-22 15:20 | XMS_ITS | Encounter Summary ---
Author Organization [facility] Address [address] [place] [address] Care Team Providers Care Cell Plasterer Name Role Phone Adriana Lin MD Primary Care Provider [phone]- [phone] Encounter Details Date Type Department Care Team (Late st Contact Info) Description 10/21/2024 2:35 PM EDT Ancillary Procedure [facility] Cardiology [facility] [address] [facility] [address] [place] [phone] Arrived Social History Tobacco Use Types Packs/Day [...] Description 10/21/2025 1:30 PM EDT Ancillary Procedure [facility] Cardiology [facility] [address] [facility] [address] [place] [phone] documented as of this encounter Procedures Procedure Name Priority Date/Time Associated Diagnosis Comments CARDIAC DEVICE CHECK- REMOTE- MURJ Routine 10/21/2024 2:30 PM EDT documented in this encounter Results * Cardiac device check - Remote- MURJ (10/21/2024 2:30 PM EDT) Date Time Interrogation Session [id number] CV DEVICE CHECK Type Interrogation Session Remote Scheduled CV DEVICE CHECK Implantable Pulse Generator Echocardiographer [employer] CV DEVICE CHECK Implantable Pulse Generator Type IPG CV DEVICE CHECK Implantable Pulse Generator Model 2272 Assurity MRI(TM) CV DEVICE CHECK Implantable Pulse Generator Serial Number [id number] CV DEVICE CHECK Implantable Pulse Generator Implant Date [id number] CV DEVICE CHECK Battery Remaining Percentage 44.00 CV DEVICE CHECK Battery Remaining Longevity 52.0 CV DEVICE CHECK Battery Voltage 2.980 CV D EVICE CHECK Battery ASSESSMENT ANALYST Trigger 2.600 CV DEVICE CHECK Battery Status Middle of Service CV DEVICE CHECK Epifanio Statistic RA Percent Paced 86.00 CV DEVICE CHECK Epifanio Statistic RV Percent Paced 24.00 CV DEVICE CHECK Atrial Tachy Statistic AT/AF Reliance Percent 1.00 CV DEVICE CHECK Lead Channel [...] on filedocumented in this encounter Care Teams Cell Plasterer Relationship Specialty Start Date End Date Adriana Lin MD [address] [place] [phone] PCP - General 07/01/20 documented as of this encounter
--- OUTSIDE RECORDS SUMMARY | 2024-10-22 15:20 | XMS_ITS | Encounter Summary ---
Author Organization [facility] Address [address] [place] [address] Care Team Providers Care Chemist Steroids Name Role Phone Adriana Lin MD Primary Care Provider [phone]- [phone] Encounter Details Date Type Department Care Team (Late Contact Info) Description 10/21/2024 Telephone [facility] Cardiology [facility] [address] [facility] [address] [place] [phone] Rolan Palomino MD [address] [facility] [address] [place] [address] Social History Tobacco Use Types Packs/Day Years [...] Upcoming Encounters Date Type Department Care Team ([facility] Contact Info) Description 10/21/2025 1:30 PM EDT Ancillary Procedure [facility] Cardiology [facility] [address] [facility] [address] [place] [phone] documented as of this encounter Visit Diagnoses Not on filedocumented in this encounter Care Teams Chemist Steroids Relationship Specialty Start Date End Date Adriana Lin MD [address] [place] [phone] PCP - General 07/01/20 documented as of this encounter
--- OUTSIDE RECORDS SUMMARY | 2024-10-22 15:20 | XMS_ITS | Encounter Summary ---
Author Organization [facility] Address [address] [place] [address] Care Team Providers Care Gis Database Administrator Name Role Phone Adriana Lin MD Primary Care Provider [phone]- [phone] Encounter Details Date Type Department Care Team (Late st Contact Info) Description 10/21/2024 Telephone [facility] [address] [place] [address] Rebecca Lynn NP [address] [place] [address] Social History Tobacco Use Types [...] 10/21/2025 1:30 PM EDT Ancillary Procedure [facility] [address] [place] [address] documented as of this encounter Visit Diagnoses Not on filedocumented in this encounter Care Teams Gis Database Administrator Relationship Specialty Start Date End Date Adriana Lin MD [address] [place] [phone] PCP - General 07/01/20 documented as of this encounter
[2024-10-22 18:06] LABS: Estimated Glomerular Filt Rate 52
== END 2024-10-22 10:52 | disposition home or self-care (01) ==
LOC: HO.HKASLDS 10:51
PROVIDERS: PCP Physician Assistant Medical; Visit Provider Internal Medicine Rheumatology
DX: M80.00XD Age-related osteoporosis with current pathological fracture, unspecified site, subsequent encounter for fracture with routine healing (principal)
CPT/HCPCS: 36415; 82565; 96372; J3111

== ENCOUNTER 2025-01-07 08:38 | Outpatient (AMB) | payer MEDICARE, BC, SELFPAY ==
--- NOTE | 2025-01-07 08:40 | A.OFFVIS_ITS ---
Vital Signs 01/07/25 08:41 Height 5 ft 4 in Weight 121 lb 0.54 oz BMI 20.8 BP 108/64 Blood Pressure Location Rt brachial Position Sitting Pulse 80 Pulse Source Pulse Oximeter Pulse Oximetry (%) 99 Oxygen Delivery Method Room Air Intake Visit Reasons: 3 Months Intake Note: Patient present today for [facility] office visit. Allergies erythromycin base Adverse Reaction (Unknown, Verified 01/07/25 08:41) Skin Rashes, Eruption of skin HPI HPI 3 Months: Details: After he Evenity she had uncontrolled pain in her bilateral shoulders and hips. Pain has reduced 90%. She still has constant pain in her shoulders and hips but it is tolerable. She functions well. She was able to reduce prednisone to 1 mg daily for 3 days then 2 mg on the 4th day then back to 1 mg daily for 3 days then 4 mg on the 4th day for the last month. She denies scalp pain, jaw pain, new ocular symptoms, headache, joint swelling. She continues to have bruising on her extremities. She has to wear long sleeve shirts, otherwise the area that has pressure applied to it on her skin may bleed. No recent infections [facility] Medical History Atrial fibrillation History of biopsy Pericarditis Pacemaker Osteoporosis Heart disease Surgical History History of colonoscopy Family History Mother Lung cancer Breast cancer Osteoporosis Father Heart disease Social History Alcohol intake: current Alcohol type: wine Comment: 3 x week Patient Tobacco Use Status: Former Tobacco user Substance Use Type: Marijuana Physical Exam Vital Signs: Last Vital Signs Pulse 80 01/07/25 08:41 BP 108/64 01/07/25 08:41 Pulse Ox 99 01/07/25 08:41 Oxygen Delivery Method Room Air 01/07/25 08:41 BMI result Body Mass Index 20.8 Const Other: General: Comfortable CVS: RRR Respiratory: clear to auscultation bilaterally. Good respiratory effort Skin: No lesions seen MSK: No tenderness of scalp/temporal region. [place] nodes present. Tender bilateral shoulders on palpation. Normal range of motion of upper extremities and lower extremities. + 2 radial pulse bilaterally. No synovitis. Assessment & Plan Assessment & Plan (1) Giant cell arteritis: Comment: Controlled on current regimen: Actemra 162mg SC weekly and slow prednisone taper. Patient is currently taking prednisone 1mg daily x3 days then 2mg on the 4th day (self tapered). During the last 2 years she has had recurrent episodes of scalp tenderness, responding to temporary increases in prednisone. Inflammatory markers have remained normal. I am concerned she has stress-induced scalp dysesthesia. I am requesting Neurology input to rule out other causes of scalp dysesthesia. Rheumatology history: Biopsy confirmed [facility] 11/2021. She has had recurrent relapses on prednisone. Initial relapses involved recurrent headaches. 2023 she has had recurrent relapses due to scalp tenderness. Actemra 08/2022- Code(s): M31.6 - Other giant cell arteritis Category: Medical Plan: Neurology consultation for evaluation and management of scalp dysesthesia Decrease prednisone to 1 mg daily for 2 weeks then alterate with 1g on day 1 and 0 on day 2 for 1 month then stop Inflammatory markers ordered today. Lab requisition given to patient to have labs done locally. Continue Actemra 162 mg subcutaneous injection weekly. Labs for drug monitoring on high-risk medication due week of February fasting with lipid panel. Lab requisition given to patient to have done local to her home. Return to clinic in 3 months (2) Other group home (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 therapy: Code(s): Z79.899 - Other group home (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 therapy Category: Medical Plan: See above (3) Osteoporosis: Comment: Hx of fragility fracture rib fracture. Fosamax [id number]. High risk for future fracture. Evenity 11/2023-. She had Evenity 7th dose 05/2024. Evenity 8th dose 10/22/2024 side effect polyarthralgias. Code(s): M81.0 - Age-related osteoporosis without current pathological fracture Category: Medical Qualifiers: Osteoporosis type: age-related Presence of current pathological fracture: with current pathological fracture Encounter type: subsequent encounter Fracture healing: with routine healing Qualified Code(s): M80.00XD - Age-related osteoporosis with current pathological fracture, unspecified site, subsequent encounter for fracture with routine healing Plan: Last DXA 02/2022. DXA is due Patient does not want to continue Evenity or any other treatment for osteoporosis at this time Continue calcium carbonate 600 mg daily Continue vitamin-D 50 mcg daily Return to clinic in 3 months (4) Dysesthesia of scalp: Code(s): R20.8 - Other disturbances of skin sensation Category: Medical Plan: Neurology consultation See above Orders: Orders Lipid Panel 1 Month M31.6 - Other giant cell arteritis, Z79.899 - Other group home (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 therapy Aspartate Amino Transferase 1 Month M31.6 - Other giant cell arteritis, Z79.899 - Other vocational education professional (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 therapy C Reactive Protein 1 Month M31.6 - Other giant cell arteritis, Z79.899 - Other group home (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 therapy Creatinine 1 Month M31.6 - Other giant cell arteritis, Z79.899 - Other group home (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 therapy C Reactive Protein Today M31.6 - Other giant cell arteritis, Z79.899 - Other vocational education professional (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 therapy Erythrocyte Sedimentation Rate Today M31.6 - Other giant cell arteritis, Z79.899 - Other vocational education professional (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 therapy Absolute Neutrophil Count 1 Month M31.6 - Other giant cell arteritis, Z79.899 - Other group home (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 therapy Complete Blood Count Man Dif 1 Month M31.6 - Other giant cell arteritis, Z79.899 - Other group home (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 therapy Alanine Aminotransferase 1 Month M31.6 - Other giant cell arteritis, Z79.899 - Other group home (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 therapy Erythrocyte Sedimentation Rate 1 Month M31.6 - Other giant cell arteritis, Z79.899 - Other group home (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 therapy Medications: Refilled Actemra ACTPen (tocilizumab) Inject weekly SC 162 mg (0.9 mL) subcut QWEEK 4 mL 2RF NS M31.6 - Other giant cell arteritis, Z79.899 - Other vocational education professional (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 therapy Coding Level of Care Code Est Pt Level 4 (51012) Complex EM visit Add On G2211 Diagnoses Giant cell arteritis M31.6 Other vocational education professional (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 therapy Z79.899 Age-related osteoporosis with current pathological fracture with routine healing, subsequent encounter M80.00XD Osteoporosis type: age-related Presence of current pathological fracture: with current pathological fracture Encounter type: subsequent encounter Fracture healing: with routine healing Dysesthesia of scalp R20.8
[2025-01-07 08:41] VITALS: BP 108/64; PULSE 80; O2SAT 99; BMI 20.8
--- OUTSIDE RECORDS SUMMARY | 2025-01-07 08:54 | XMS_ITS | Clinical Summary ---
Author Organization [facility], Address [address] [facility] [address] [place] [address] Phone Care Team Providers Care Email Production Specialist Name Role Phone Cynthia Romo Sherrie SMITH [...] Due Date Last Done Comments Pneumococcal Vaccine: 50+ Ye ars (1 of 2 - PCV) 1964 Influenza Vaccine (Season Ended) 2025 Hepatitis B Vaccine Aged Out No longe r eligible based on patient's age to complete this topic Insurance Medicare [facility] Care Teams Email Production Specialist Relationship Specialty Start Date End Date Cynthia Romo PA-C [address] [place] [address] PCP - General Physician Straight Edger 04/25/21
== END 2025-01-07 09:38 | disposition home or self-care (01) ==
LOC: HO.RHES 08:39
PROVIDERS: PCP Physician Assistant Medical; Visit Provider Internal Medicine Rheumatology
DX: M31.6 Other giant cell arteritis (principal); Z79.899 Other long term (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 therapy; M80.00XD Age-related osteoporosis with current pathological fracture, unspecified site, subsequent encounter for fracture with routine healing; R20.8 Other disturbances of skin sensation
CPT/HCPCS: 99214; G2211

== ENCOUNTER → 2025-01-07 08:38 | Outpatient (BNVA) | payer MEDICARE, BC, SELFPAY | PROVIDERS: PCP Physician Assistant Medical; Visit Provider Internal Medicine Rheumatology | DX: M31.6 Other giant cell arteritis (principal); M80.00XD Age-related osteoporosis with current pathological fracture, unspecified site, subsequent encounter for fracture with routine healing; R20.8 Other disturbances of skin sensation; Z79.899 Other long term (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 therapy | CPT/HCPCS: 99212 ==

== ENCOUNTER 2025-02-24 07:50 | Outpatient (REF) | payer MEDICARE, BC, SELFPAY ==
[2025-02-24 13:57] LABS: MANUAL DIFF FLAG NO
[2025-02-24 14:11] LABS: Hematocrit 37.8 % (37.0-47.0); Hemoglobin 12.5 g/dl (12.0-16.0); Imm Gran Abs Auto 0.35 X10*3/uL (0.00-0.03); Imm Gran Pct Auto 3.9 % (0.0-0.4); Lymphocytes Absolute Auto 1.4 X10*3/uL (1.2-4.9); Mean Corpuscular HGB Conc 33.1 g/dl (31.0-35.0); Mean Corpuscular Hemoglobin 28.1 pg (27.0-33.0); Mean Corpuscular Volume 84.9 fL (80.0-98.0); NRBC Abs Auto 0.000 X10*3/uL (0.0-0.012); NRBC Pct Auto 0.0 /100WBC (0.0-0.2); Platelet Count 282 X10*3/uL (160-400); Red Blood Count 4.45 X10*6/uL (4.20-5.50); White Blood Count 9.1 X10*3/uL (4.8-10.8)
[2025-02-24 14:42] LABS: Alanine Aminotransferase 203 U/L (0-31); Aspartate Amino Transferase 44 U/L (5-31); Cholesterol 220 mg/dL (<200); Estimated Glomerular Filt Rate 51; HDL Cholesterol 69 mg/dL (>40); Triglycerides 168 mg/dL (<150)
== END 2025-02-24 07:51 | disposition home or self-care (01) ==
LOC: HO.HKASLDS 07:50
PROVIDERS: PCP Physician Assistant Medical; Visit Provider Internal Medicine Rheumatology
DX: M31.6 Other giant cell arteritis (principal); M80.00XD Age-related osteoporosis with current pathological fracture, unspecified site, subsequent encounter for fracture with routine healing; Z79.60 Long term (current) use of unspecified immunomodulators and immunosuppressants; Z79.82 Long term (current) use of aspirin; Z79.899 Other long term (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 therapy
CPT/HCPCS: 36415; 80061; 82565; 84450; 84460; 85025; 85652; 86140; 99212

== ENCOUNTER 2025-02-24 07:50 | Outpatient (AMB) | payer MEDICARE, BC, SELFPAY ==
--- OUTSIDE RECORDS SUMMARY | 2025-02-24 07:53 | XMS_ITS | Data Portability ---
Author Organization [facility], [facility] Address [address] [place] [address] Care Team Providers Care Funeral Home Associate Name Role Phone AMANDA LYON Community Outreach Worker CYNTHIA ROMO Primary Care Provider CESIA NEWBY Enterprise Resource Planner [facility] Weapons Specialist Assessment Encounter Date Assessment Date Assessment LastModified [...] meeting your goals. Please visit our website [employer] for more patient resources. As part of your care plan, we will help coordinate your ongoing medical needs, arrange for durable medical equipment, renew prescriptions and necessary prior authorizations, facilitate getting referrals and collaborating with specialist, referrals for VNA services. [email or web address] Not available 10/09/2024 16:28:16 12/16/2024 12/16/2024 Patient agreed t o this visit via phone or secure telehealth platform. Patient understands this is a scheduled visit and the usual procedures with regard to billing and confidentiality apply. Patient was notified that the provider location is [facility] Patient location: home During the visit the patient s medical history and medical record were reviewed. The patient was notified to call our office for worsening or urgent symptoms. [email or web address] Not available 12/16/2024 08:35:14 02/19/2025 02/19/2025 We reviewed your chronic medical conditions and updated your plan for management. Please review instructions below. We have discussed your personal goals and discussed how to reach your goals. Please reach out to us via the Portal or phone if you have questions about your chronic conditions or if you or your caregivers require assistance in meeting your goals. Please visit our website [employer] for more patient resources. As part of your care plan, we will help coordinate your ongoing medical needs, arrange for durable medical equipment, renew prescriptions and necessary prior authorizations, facilitate getting referrals and collaborating with specialist, referrals for VNA services. Not available 02/19/2025 12:13:34 Plan of Treatment Reminders Order Date Submit Date Provider Last Modified By Organization Details Last Modified Time Details Appointments Follow Up, 2024 01:30P M Cynthia Romo PA-C Not available Not available Not available LAB Follow-Up 2024 08:10A M [facility] Lab Not available Not available Not available Lab cortisol, am, serum 2023 024 [facility], [address] [place] [address], [address], 06/06/2024 09:08:35 Referral None recorded. Procedures None recorded. Surgeries None recorded. Imaging None recorded. Medication Orders oxycodone 5 mg tablet 2024 025 [facility]/Pharmacy #2024, [address] [place], [address], 02/19/2025 14:54:22 prednison e 20 mg tablet 2024 025 [facility]/Pharmacy #2024, [address] [place], [address], 02/19/2025 16:20:17 cephalexi n 500 mg capsule 2024 025 [facility]/Pharmacy #2024, [address] [place], [address], 02/19/2025 14:54:21 oxycodone 5 mg tablet 2024 025 [email or web address] [facility]Pharmacy #2024, [address] [place], [address], 02/10/2025 08:15:15 Evenity 210 mg/2.34 mL (105 mg/1.17 mL x 2) subcutane ous syringe 2023 024 [email or web address] [facility]/Pharmacy #2024, [address] [place], [address], 12/16/2024 11:53:23 Evenity 210 mg/2.34 mL (105 mg/1.17 mL x 2) subcutane ous syringe 2023 024 [email or web address] [facility]/Pharmacy #2024, [address] [place], [address], 12/16/2024 11:53:23 oxycodone 5 mg tablet [address]/Pharmacy #2024, [address] [place], [address], 02/10/2025 08:15:15 lisinopri l 2.5 mg tablet 2023 024 MERVIN [facility]/Pharmacy #2024, [address] [place] [address], [address], 05/18/2024 12:30:29 Patient TargetsNo targets recorded. Patient Instructions Encounter Date Encounter Id Patient Instructions Last Modified By Organization Details Last Modified Time 02/19/2025 [id number] Significant emotional distress and depression related to chronic pain and diagnostic uncertainty. Expresses hopelessness and fear of dying. Frustration with medical system. - Refer to manager social services Adina for emotional support and coping strategies. [email or web address] Not available 02/19/2025 16:42:10 Reason for Referral None Reported. Results Created Date Observation Date Name Description Value Unit Range Abnormal Flag Note LastModifiedBy Organization Detail LastModifiedTime 05/04/20 24 05/04/2024 CBC WBC 3.83 K/ L 3.98-1 0.04 low Not Available [address], [address], 05/04/2024 10:48:15 05/04/20 24 05/04/2024 CBC RBC 4.47 M/ L 3.93-5 .22 Not Available [address], [address], 05/04/2024 10:48:15 05/04/20 24 05/04/2024 CBC HGB 12.6 g/dL 11.2-1 5.7 Not Available [address], [address], 05/04/2024 10:48:15 05/04/20 24 05/04/2024 CBC HCT 39.4 % 34.1-4 4.9 Not Available [address], [address], 05/04/2024 10:48:15 05/04/20 24 05/04/2024 CBC MCV 88.1 fL 79.4-9 4.8 Not Available [address], [address], 05/04/2024 10:48:15 05/04/20 24 05/04/2024 CBC MCH 28.2 pg 25.6-3 2.2 Not Available [address], [address], 05/04/2024 10:48:15 05/04/20 24 05/04/2024 CBC MCHC 32.0 g/dL 32.2-3 5.5 low Not Available [address], [address], 05/04/2024 10:48:15 05/04/20 24 05/04/2024 CBC plt 208 K/ L 182-36 9 Not Available [address], [address], 05/04/2024 10:48:15 05/04/20 24 05/04/2024 CBC MPV 11.3 fL 9.4-12 .3 Not Available [address], [address], 05/04/2024 10:48:15 05/04/20 24 05/04/2024 CBC neut% 43.6 % 34.0-7 1.1 Not Available [address], [address], 05/04/2024 10:48:15 05/04/20 24 05/04/2024 CBC neut# 1.67 1.56-6 .13 Not Available [address], [address], 05/04/2024 10:48:15 05/04/20 24 05/04/2024 CBC lymph % 35.5 % 19.3-5 1.7 Not Available [address], [address], 05/04/2024 10:48:15 05/04/20 24 05/04/2024 CBC lymph # 1.36 K/ L 1.18-3 .74 Not Available [address], [address], 05/04/2024 10:48:15 05/04/20 24 05/04/2024 CBC mono% 11.7 % 4.7-12 .5 Not Available [address], [address], 05/04/2024 10:48:15 05/04/20 24 05/04/2024 CBC mono# 0.45 0.24-0 .56 Not Available [address], [address], 05/04/2024 10:48:15 05/04/20 24 05/04/2024 CBC eo% 7.6 % 0.7-5. 8 high Not Available [address], [address], 05/04/2024 10:48:15 05/04/20 24 05/04/2024 CBC eo# 0.29 0.04-0 .36 Not Available [address], [address], 05/04/2024 10:48:15 05/04/20 24 05/04/2024 CBC baso% 1.6 % 0.1-1. 2 high Not Available [address], [address], 05/04/2024 10:48:15 05/04/20 24 05/04/2024 CBC baso# 0.06 0.00-0 .08 Not Available [address], [address], 05/04/2024 10:48:15 05/04/20 24 05/04/2024 CBC RDW-CV 13.5 % 11.7-1 4.4 Not Available [address], [address], 05/04/2024 10:48:15 05/04/20 24 05/04/2024 CBC Ig% 0.000 % 0.000- 1.500 Ig % >0.5 Indic ates possi ble Left Shift Not Available [address], [address], 05/04/2024 10:48:15 05/04/20 24 05/04/2024 CBC Ig# 0.000 0.000- 0.093 Not Available [address], [address], 05/04/2024 10:48:15 05/04/20 24 05/04/2024 CBC NRBC% 0.0 % 0.0-0. 2 Not Available [address], [address], 05/04/2024 10:48:15 05/04/20 24 05/04/2024 CBC NRBC# 0.000 0.000- 0.012 Not Available [address], [address], 05/04/2024 10:48:15 05/04/20 24 05/04/2024 ESR sed rate 6.0 0.0-15 .0 Not Available [address], [address], 05/04/2024 11:45:07 05/04/20 24 05/04/2024 BASIC METAB OLIC PANEL glucose 86 mg/dL 70-100 Not Available [address], [address], 05/04/2024 12:38:18 05/04/20 24 05/04/2024 BASIC METAB OLIC PANEL BUN 18 mg/dL 7-18 Not Available [address], [address], 05/04/2024 12:38:18 05/04/20 24 05/04/2024 BASIC METAB OLIC PANEL creatinine 1.1 mg/dL 0.8-1. 3 Not Available [address], [address], 05/04/2024 12:38:18 05/04/20 24 05/04/2024 BASIC METAB OLIC PANEL B/C 16.4 ratio Not Available [address], [address], 05/04/2024 12:38:18 05/04/20 24 05/04/2024 BASIC METAB OLIC PANEL GFR 51.4 mL/mi n abnormal >=60m L/min - Nova l or midly reduc ed <60mL /min- Decre ased kidne y funct ion <15mL /min - Kidne y failu re [facility] calcu lates estim ated Glome rular Filtr ation Rate (eGFR ) using the Chron ic Kidne y Disea se Epide miolo gy Colla borat ion (CKD- EPI) Equat ion (Moises r et. al 2020) as recom eunice d by the Natio nal Kidne y Found ation . eGFR is based on age, serum creat inine , and sex. CKD-E PI does not calcu late eGFR by race, does not apply to child charlie (age <18 years ), and shoul d not be used in pregn reema. Not Available [address], [address], 05/04/2024 12:38:18 05/04/20 24 05/04/2024 BASIC METAB OLIC PANEL sodium 143 mmol/ L 136-14 5 Not Available [address], [address], 05/04/2024 12:38:18 05/04/20 24 05/04/2024 BASIC METAB OLIC PANEL potassium 4.1 mmol/ L 3.5-5. 1 Not Available [address], [address], 05/04/2024 12:38:18 05/04/20 24 05/04/2024 BASIC METAB OLIC PANEL chloride 107 mmol/ L 96-107 Not Available [address], [address], 05/04/2024 12:38:18 05/04/20 24 05/04/2024 BASIC METAB OLIC PANEL anion gap 9.5 5.0-15 .0 Not Available [address], [address], 05/04/2024 12:38:18 05/04/20 24 05/04/2024 BASIC METAB OLIC PANEL CO2 27 mmol/ L 21-32 Not Available [address], [address], 05/04/2024 12:38:18 05/04/20 24 05/04/2024 BASIC METAB OLIC PANEL calcium 8.3 mg/dL 8.5-10 .3 low CHASITY=V erifi ed by Juan gilmore Not Available [address], [address], 05/04/2024 12:38:18 05/04/20 24 05/04/2024 LIPID PANEL cholesterol 253 mg/dL <200 mg/dl Yandel able 200-2 39 mg/dl Borde rline High >240 mg/dl High Not Available [address], [address], 05/04/2024 12:47:40 05/04/20 24 05/04/2024 LIPID PANEL triglyceride s 125 mg/dL <150 mg/dL Nova l 150-1 99 mg/dL Borde rline High 200-4 99 mg/dL High >500 mg/dL Very High Not Available [address], [address], 05/04/2024 12:47:40 05/04/20 24 05/04/2024 LIPID PANEL direct HDL 100 mg/dL <40 mg/dl - Major Risk for CHD >60 mg/dl - Negat kyleigh Risk for CHD Not Available [address], [address], 05/04/2024 12:47:40 05/04/20 24 05/04/2024 ALBUM IN albumin 3.6 g/dL 3.4-5. 0 Not Available [address], [address], 05/04/2024 12:47:40 05/04/20 24 05/04/2024 AST AST 12 U/L 0-37 Not Available [address], [address], 05/04/2024 12:47:41 05/04/20 24 05/04/2024 ALT ALT 22 U/L 6-63 Not Available [address], [address], 05/04/2024 12:47:41 05/04/20 24 05/04/2024 C-[place]OR[place] CTIVE PROTE IN (RCRP ) C-reactive protein (rcrp) 0.6 mg/dL 0.5-9. 0 Not Available [address], [address], 05/04/2024 12:47:42 05/04/20 24 05/04/2024 LDL - CALCU LATED LDL - calculated 128 RISK CATEG ORY LDL GOAL _ CHD or CHD Risk Equiv alent s <100 mg/dl (10-y ear risk >20%) 2+ Risk Facto rs <130 mg/dl (10-y ear risk <= 20%) 0-1 Risk Facto r <160 mg/dl Almo st all peopl e with 0-1 risk facto r have a 10 year risk <10%, thus 10 year risk asses ment in peopl e with 0-1 risk facto r is not neces rosette. Not Available [address], [address], 05/04/2024 12:47:42 05/04/20 24 05/07/2024 ANCA SCREE N WITH REFLE X TO TITER anca screen NEGATI VE negati ve normal ANCA scree n uses indir ect immun ofluo resce nce to detec t antib odies to neutr ophil cytop lasmi c antig ens. A posit kyleigh scree n refle xes to titer and madisynte rn. Patte rns inclu de cytop lasmi c (c-AN CA) and perin uclea r (p-AN CA) both of which are assoc iated with vascu litis , and atypi melina p-ANC A which is assoc iated with infla mmato ry bowel disea se and other disor ders. Not Available [facility] [place] [facility] [address], [place], [address], 05/07/2024 10:13:42 06/05/20 24 06/05/2024 BASIC METAB OLIC PANEL glucose 107 mg/dL 70-100 high Not Available [address], [address], 06/05/2024 12:21:08 1006/05/2024 BASIC METAB OLIC PANEL BUN 21 mg/dL 7-18 high Not Available [address], [address], 06/05/2024 12:21:08 06/05/2006/05/2024 BASIC METAB OLIC PANEL creatinine 1.2 mg/dL 0.8-1. 3 Not Available [address], [address], 06/05/2024 12:21:08 06/05/2006/05/2024 BASIC METAB OLIC PANEL B/C 17.5 ratio Not Available [address], [address], 06/05/2024 12:21:08 06/05/2006/05/2024 BASIC METAB OLIC PANEL GFR 46.3 mL/mi n abnormal >=60m L/min - Nova l or midly reduc ed <60mL /min- Decre ased kidne y funct ion <15mL /min - Kidne y failu re [facility] calcu lates estim ated Glome rular Filtr ation Rate (eGFR ) using the Chron ic Kidne y Disea se Epide miolo gy Colla borat ion (CKD- EPI) Equat ion (Moises daniel et. al 2020) as recom eunice d by the Natio nal Kidne y Found ation . eGFR is based on age, serum creat inine , and sex. CKD-E PI does not calcu late eGFR by race, does not apply to child charlie (age <18 years ), and shoul d not be used in pregn reema. Not Available [address], [address], 06/05/2024 12:21:08 06/05/20 24 06/05/2024 BASIC METAB OLIC PANEL sodium 142 mmol/ L 136-14 5 Not Available [address], [address], 06/05/2024 12:21:08 1006/05/2024 BASIC METAB OLIC PANEL potassium 4.0 mmol/ L 3.5-5. 1 Not Available [address], [address], 06/05/2024 12:21:08 06/05/2006/05/2024 BASIC METAB OLIC PANEL chloride 105 mmol/ L 96-107 Not Available [address], [address], 06/05/2024 12:21:08 06/05/2006/05/2024 BASIC METAB OLIC PANEL anion gap 9.0 5.0-15 .0 Not Available [address], [address], 06/05/2024 12:21:08 06/05/2006/05/2024 BASIC METAB OLIC PANEL CO2 28 mmol/ L 21-32 Not Available [address], [address], 06/05/2024 12:21:08 06/05/2006/05/2024 BASIC METAB OLIC PANEL calcium 8.8 mg/dL 8.5-10 .3 Not Available [address], [address], 06/05/2024 12:21:08 06/05/2006/06/2024 CORTI LATOYA, A.M. cortisol, A.M. 21.0 mcg/d L normal Refer ence Range 8 a.m. (7-9 a.m.) Speci men: 4.0-2 2.0 Not Available [facility] [address], [place], [address], 06/06/2024 09:08:35 11/13/1911/12/2024 CBC WBC 6.20 K/ L 3.98-1 0.04 Not Available [address], [address], 11/12/2024 12:24:40 11/13/19 25 11/12/2024 CBC RBC 4.59 M/ L 3.93-5 .22 Not Available [address], [address], 11/12/2024 12:24:40 11/13/19 25 11/12/2024 CBC HGB 13.1 g/dL 11.2-1 5.7 Not Available [address], [address], 11/12/2024 12:24:40 11/13/19 25 11/12/2024 CBC HCT 40.9 % 34.1-4 4.9 Not Available [address], [address], 11/12/2024 12:24:40 11/13/19 25 11/12/2024 CBC MCV 89.1 fL 79.4-9 4.8 Not Available [address], [address], 11/12/2024 12:24:40 11/13/19 25 11/12/2024 CBC MCH 28.5 pg 25.6-3 2.2 Not Available [address], [address], 11/12/2024 12:24:40 11/13/19 25 11/12/2024 CBC MCHC 32.0 g/dL 32.2-3 5.5 low Not Available [address], [address], 11/12/2024 12:24:40 11/13/19 25 11/12/2024 CBC plt 210 K/ L 182-36 9 Not Available [address], [address], 11/12/2024 12:24:40 11/13/19 25 11/12/2024 CBC MPV 11.7 fL 9.4-12 .3 Not Available [address], [address], 11/12/2024 12:24:40 11/13/19 25 11/12/2024 CBC neut% 74.7 % 34.0-7 1.1 high Not Available [address], [address], 11/12/2024 12:24:40 11/13/19 25 11/12/2024 CBC neut# 4.63 1.56-6 .13 Not Available [address], [address], 11/12/2024 12:24:40 11/13/19 25 11/12/2024 CBC lymph % 15.3 % 19.3-5 1.7 low Not Available [address], [address], 11/12/2024 12:24:40 11/13/19 25 11/12/2024 CBC lymph # 0.95 K/ L 1.18-3 .74 low Not Available [address], [address], 11/12/2024 12:24:40 11/13/19 25 11/12/2024 CBC mono% 7.9 % 4.7-12 .5 Not Available [address], [address], 11/12/2024 12:24:40 11/13/19 25 11/12/2024 CBC mono# 0.49 0.24-0 .56 Not Available [address], [address], 11/12/2024 12:24:40 11/13/19 25 11/12/2024 CBC eo% 1.3 % 0.7-5. 8 Not Available [address], [address], 11/12/2024 12:24:40 11/13/19 25 11/12/2024 CBC eo# 0.08 0.04-0 .36 Not Available [address], [address], 11/12/2024 12:24:40 11/13/19 25 11/12/2024 CBC baso% 0.6 % 0.1-1. 2 Not Available [address], [address], 11/12/2024 12:24:40 11/13/19 25 11/12/2024 CBC baso# 0.04 0.00-0 .08 Not Available [address], [address], 11/12/2024 12:24:40 11/13/1911/12/2024 CBC RDW-CV 13.4 % 11.7-1 4.4 Not Available [address], [address], 11/12/2024 12:24:40 11/13/19 25 11/12/2024 CBC Ig% 0.200 % 0.000- 1.500 Ig % >0.5 Indic ates possi ble Left Shift Not Available [address], [address], 11/12/2024 12:24:40 11/13/1911/12/2024 CBC Ig# 0.010 0.000- 0.093 Not Available [address], [address], 11/12/2024 12:24:40 11/13/1911/12/2024 CBC NRBC% 0.0 % 0.0-0. 2 Not Available [address], [address], 11/12/2024 12:24:40 11/13/19 25 11/12/2024 CBC NRBC# 0.000 0.000- 0.012 Not Available [address], [address], 11/12/2024 12:24:40 11/13/19 25 11/12/2024 LIPID PANEL cholesterol 278 mg/dL <200 mg/dl Yandel able 200-2 39 mg/dl Borde rline High >240 mg/dl High Not Available [address], [address], 11/12/2024 14:37:07 11/13/19 25 11/12/2024 LIPID PANEL triglyceride s 125 mg/dL <150 mg/dL Nova l 150-1 99 mg/dL Borde rline High 200-4 99 mg/dL High >500 mg/dL Very High Not Available [address], [address], 11/12/2024 14:37:07 11/13/19 25 11/12/2024 LIPID PANEL direct HDL 110 mg/dL <40 mg/dl - Major Risk for CHD >60 mg/dl - Negat kyleigh Risk for CHD Not Available [address], [address], 11/12/2024 14:37:07 11/13/19 25 11/12/2024 AST AST 12 U/L 0-37 Not Available [address], [address], 11/12/2024 14:37:08 11/13/19 25 11/12/2024 ALT ALT 21 U/L 6-63 Not Available [address], [address], 11/12/2024 14:37:09 11/13/19 25 11/12/2024 DIREC T LDL direct LDL 131 mg/dL RISK CATEG ORY LDL GOAL _ CHD or CHD Risk Equiv alent s <100 mg/dl (10-y ear risk >20%) 2+ Risk Facto rs <130 mg/dl (10-y ear risk <= 20%) 0-1 Risk Facto r <160 mg/dl Almo st all peopl e with 0-1 risk facto r have a 10 year risk <10%, thus 10 year risk asses ment in peopl e with 0-1 risk facto r is not maryellen angy. Not Available [address], [address], 11/12/2024 14:37:09 11/13/19 25 11/12/2024 C-[place] CTIVE PROTE IN (RCRP ) C-reactive protein (rcrp) 0.7 mg/L 0.5-9. 0 Not Available [address], [address], 11/12/2024 14:37:10 11/13/19 25 11/12/2024 BASIC METAB OLIC PANEL glucose 91 mg/dL 70-100 Not Available [address], [address], 11/12/2024 14:37:12 11/13/19 25 11/12/2024 BASIC METAB OLIC PANEL BUN 22 mg/dL 7-18 high Not Available [address], [address], 11/12/2024 14:37:12 11/13/19 25 11/12/2024 BASIC METAB OLIC PANEL creatinine 1.1 mg/dL 0.8-1. 3 Not Available [address], [address], 11/12/2024 14:37:12 11/13/19 25 11/12/2024 BASIC METAB OLIC PANEL B/C 20.0 ratio Not Available [address], [address], 11/12/2024 14:37:12 11/13/19 25 11/12/2024 BASIC METAB OLIC PANEL GFR 51.1 mL/mi n abnormal >=60m L/min - Nova l or midly reduc ed <60mL /min- Decre ased kidne y funct ion <15mL /min - Kidne y failu re [facility] calcu lates estim ated Glome rular Filtr ation Rate (eGFR ) using the Chron ic Kidne y Disea se Epide miolo gy Colla borat ion (CKD- EPI) Equat ion (Moises r et. al 2020) as recom eunice d by the Natio nal Kidne y Found ation . eGFR is based on age, serum creat inine , and sex. CKD-E PI does not calcu late eGFR by race, does not apply to child charlie (age <18 years ), and shoul d not be used in pregn reema. Not Available [address], [address], 11/12/2024 14:37:12 11/13/1911/12/2024 BASIC METAB OLIC PANEL sodium 141 mmol/ L 136-14 5 Not Available [address], [address], 11/12/2024 14:37:12 11/13/19 25 11/12/2024 BASIC METAB OLIC PANEL potassium 4.4 mmol/ L 3.5-5. 1 Not Available [address], [address], 11/12/2024 14:37:12 11/13/19 25 11/12/2024 BASIC METAB OLIC PANEL chloride 104 mmol/ L 96-107 Not Available [address], [address], 11/12/2024 14:37:12 11/13/19 25 11/12/2024 BASIC METAB OLIC PANEL anion gap 7.7 5.0-15 .0 Not Available [address], [address], 11/12/2024 14:37:12 11/13/19 25 11/12/2024 BASIC METAB OLIC PANEL CO2 29 mmol/ L 21-32 Not Available [address], [address], 11/12/2024 14:37:12 11/13/19 25 11/12/2024 BASIC METAB OLIC PANEL calcium 9.3 mg/dL 8.5-10 .3 Not Available [address], [address], 11/12/2024 14:37:12 11/13/19 25 11/12/2024 ESR sed rate 2.0 0.0-15 .0 Not Available [address], [address], 11/12/2024 15:08:18 11/14/19 25 11/18/2024 ANCA SCREE N WITH MPO AND PR3 WITH REFLE X TO ANCA TITER anca screen NEGATI VE negati ve normal ANCA scree n uses indir ect immun ofluo resce nce to detec t antib odies to neutr ophil cytop lasmi c antig ens. A posit kyleigh scree n refle xes to titer and patte rn. Patte rns inclu de cytop lasmi c (c-AN CA) and perin uclea r (p-AN CA) both of which are assoc iated with vascu litis , and atypi melina p-ANC A which is assoc iated with infla mmato ry bowel disea se and other disor ders. Not Available [facility] [place] [facility] [address] [place] [address], [place], [address], 11/18/2024 11:03:30 11/14/1911/18/2024 ANCA SCREE N WITH MPO AND PR3 WITH REFLE X TO ANCA TITER myeloperoxid ase antibody <1.0 ai normal Value Inter preta tion ----- ----- ----- ---- <1.0 No Antib marta Detec joby > or = 1.0 Antib marta Detec joby Autoa ntibo dies to myelo perox idase (MPO) are commo nly assoc iated with the follo wing small -vess el vascu litid es: micro scopi c polya ngiit is, polya rteri tis nodos a, [place] -[place] uss syndr ome, necro tizin g and cresc entic glome rulon ephri tis and occas ional ly granu lomat osis with polya ngiit is (GPA, Wegen er's) . The perin uclea r ODILIA amos rn, (p-AN CA) is based large ly on autoa ntibo dy to myelo perox idase which serve s as the prima ry antig en. These autoa ntibo dies are prese nt in activ e disea se. Not Available [facility] [place] [facility] [address], [address], 11/18/2024 11:03:30 11/14/1911/18/2024 ANCA SCREE N WITH MPO AND PR3 WITH REFLE X TO ANCA TITER proteinase-3 antibody <1.0 ai normal Value Inter preta tion ----- ----- ----- ---- <1.0 No Antib marta Detec joby > or = 1.0 Antib marta Detec joby Autoa ntibo dies to prote inase -3 (GA-3 ) are accep joby as pia cteri stic for granu lomat osis with polya ngiit is (GPA, Wegen er's) , and are detec table in 95% of the histo logic ally prove n cases . The cytop laspatty amos rn, (c-AN CA), is based large ly on autoa ntibo dy to GA-3 which serve s as the prima ry antig en. These autoa ntibo dies are prese nt in activ e disea se. Not Available [facility] [place] [facility] [address], [address], 11/18/2024 11:03:30 01/08/2001/07/2025 ESR sed rate 1.0 0.0-15 .0 Not Available [address], [address], 01/07/2025 14:49:29 01/08/2001/08/2025 C-[place] CTIVE PROTE IN (RCRP ) C-reactive protein (rcrp) 0.9 mg/L 0.5-9. 0 Not Available [address], [address], 01/08/2025 11:40:55 02/16/20 25 02/15/2025 ESR sed rate 2.0 0.0-15 .0 Not Available [address], [address], 02/15/2025 16:16:36 02/16/20 25 02/15/2025 C-[place] CTIVE PROTE IN (RCRP ) C-reactive protein (rcrp) <0.5 mg/L 0.5-9. 0 < Not Available [address], [address], 02/15/2025 18:11:23 02/20/2002/19/2025 ESR sed rate 1.0 0.0-15 .0 Not Available [address], [address], 02/19/2025 14:57:33 02/20/2002/19/2025 C-[place] CTIVE PROTE IN (RCRP ) C-reactive protein (rcrp) 3.2 mg/L 0.5-9. 0 Not Available [address], [address], 02/19/2025 16:06:28 Result Notes None recorded. Problems Name Problem SNOMED Code Status Onset Date Resolution Date Notes Provider Name and Address Organization Details Recorded Time Anxiety 50156234 Active Cynthia Romo PA-C [address] [place] [address], [id number] , [facility] 2 08:05:37 Ophthalm ic migraine 89969132 Active 2016 Laura Franco NP [address] [place] [address], [id number] , [facility] 7 15:17:33 History of urticari a [id number] Active 2018 urticari a multifor me Cynthia Romo PA-C [address] [place] [address], [id number] , [facility] 9 12:10:16 Sinus bradycar thereas 20049498 Active 2018 pacemake r placed Cynhtia Romo PA-C [address] [place] [address], [id number] , [facility] 0 10:46:17 Sick sinus syndrome 10143854 Active 2018 pacemake r Cynthia Romo PA-C [address] [place] [address], , [facility] 0 07:37:01 Cardiac pacemake r in situ 966254420 Active 2019 Cynthia Romo PA-C [address] [place] [address], , [facility] 08:05:37 Atrial fibrilla tion [id number] Active 2019 due to pericard itis and now off medicati ons Cynthia Romo PA-C [address] [place] [address], , [facility] 2 08:05:37 Diastoli c dysfunct ion 7884987 Active 2019 Grade 1 Cynthia Romo PA-C [address] [place] [address], , [facility] 0 14:15:34 Acute injury of kidney [id number] 182923 Active 2020 ATN from colchici ne/ibupr ofen/lis inopril, hydrate, Kamel, improvin g Cynthia Romo PA-C [address] [place] [address], [phone] , [facility] 2 10:22:56 Temporal arteriti s 624598439 Active 2021 Dx 2 - started steroids 11/15/2021 ; recurren ce starting Actemra 08/2022, course two years Cynthia Romo PA-C [address] [place] [address], [phone] , [facility] 3 09:55:37 Chronic kidney disease stage 3 679970056 Active 2021 GFR = 42.6, 03/12/22 Ashli Armenta, [employer] null, [facility] 2 11:39:45 Erythema multifor me 38699465 Completed 200212/24/2018 Cynthia Romo PA-C [address] [place] [address], [phone] , [facility] 9 12:09:56 Extrinsi c asthma with status asthmati cus Completed 200705/31/2011 Not Available [facility] 3 03:11:30 Dyspnea 128661532 Completed 200305/31/2011 Not Available [facility] 3 03:11:30 Essentia l hyperten kaushik 59097078 Active 2002 Laura Franco NP [address] [place] [address], [phone] , [facility] 6 15:45:13 Benign essentia l hyperten kaushik 1583144 Completed 200105/31/2011 Not Available [facility] 3 03:11:30 Allergic rhinitis 53392998 Active 2006 Cynthia Romo PA-C [address] [place] [address], [phone] , [facility] 2 08:05:37 Influenz a 3599430 Completed 05/31/2011 Not Available [facility] 3 03:34:33 Dizzines s 601079605 Completed 200305/31/2011 Not Available [facility] 3 03:11:30 Major depressi on, melancho lic type 660727547 Active Not Available [facility] 3 03:11:30 Disorder of skeletal system 71171360 Completed 200105/31/2011 Not Available [facility] 3 03:11:30 Pain in throat 388056281 Completed 200705/31/2011 Not Available [facility] 3 03:11:30 Knee pain Completed 200605/31/2011 Not Available [facility] 3 03:11:30 Elevated blood-pr essure reading without diagnosi s of hyperten kaushik 476899002 Completed 200205/31/2011 Not Available [facility] 3 03:11:30 Malaise and fatigue 115159001 Completed 05/31/2011 Not Available [facility] 3 03:11:30 Left upper quadrant pain 929777147 Completed 10/16/2011 Not Available [facility] 3 03:11:30 Subserou s leiomyom a of uterus 33489689 Completed 200205/31/2011 Not Available [facility] 3 03:11:30 Headache 96741647 Completed 200705/31/2011 Not Available [facility] 3 03:11:30 Hyperthy roidism 76006487 Completed 200405/31/2011 Not Available [facility] 3 03:11:30 Uterine leiomyom a 99492599 Completed 200105/31/2011 Not Available [facility] 3 03:11:30 Ganglion of joint 26162101 Completed 200105/31/2011 Not Available [facility] 3 03:11:30 Pain of hip region 29293783 Completed 10/16/2011 Not Available [facility] 3 03:11:30 Allergic asthma without status asthmati cus 70555648 Active 2004 Cynthia Romo PA-C [address] [place] [address], [phone] , [facility] 2 08:05:37 Pure hypercho lesterol emia 682745255 Completed 200205/31/2011 Not Available [facility] 3 03:11:30 Hypertro phic conditio n of skin 18397197 Completed 200805/31/2011 Not Available [facility] 3 03:11:30 Breathin g painful 37769855 Completed 200405/31/2011 Not Available [facility] 3 03:11:30 Finding by method 542259628 Completed 200305/31/2011 Not Available [facility] 3 03:11:30 Breast lump 71447264 Completed 200510/16/2011 Not Available [facility] 3 03:11:30 Acute upper respirat ory infectio n 56349319 Completed 05/31/2011 Not Available [facility] 3 03:11:30 Nonvenom ous insect bite of multiple sites 953591941 Completed 05/31/2011 Not Available [facility] 3 03:11:30 On examinat ion - a rash Completed 200305/31/2011 Not Available [facility] 3 03:11:30 Senile osteopor osis 28744818 Completed 200105/31/2011 Not Available [facility] 3 03:11:30 Herpes zoster 8306320 Completed 200210/16/2011 Not Available [facility] 3 03:11:30 Osteopor osis 01809050 Active 2001 Dx 02/2022, does not want to start medicati ons Cyntiha Romo PA-C [address] [place] [address], [phone] , [facility] 2 10:39:40 Menopaus al symptom 72824232 Completed 200105/31/2011 Not Available [facility] 3 03:11:30 Benign neoplasm of skin 58101742 Completed 05/31/2011 Not Available [facility] 3 03:11:30 Migraine 09643842 Completed 10/16/2011 Not Available [facility] 3 03:11:30 Streptoc occal sore throat 65495622 Completed 200705/31/2011 Not Available [facility] 3 03:11:30 Viral upper respirat ory tract infectio n 768057560 Completed 200705/31/2011 Not Available [facility] 3 03:11:30 Problem Notes None recorded. Procedures Surgical History Date Name Laterality Status Provider Name and Address Organization Details Recorded Time 11/27/19 24 G2211 completed WILLA Grant [address] [place] [address], [phone], [facility] 11/27/2023 11:03:32 06/05/20 23 Medicare Wellness Visit completed Kellen Meza [facility] 04/18/2023 09:30:54 06/05/20 23 Asthma Control Test (12 + years old) completed Kellen Meza [facility] 04/18/2023 09:31:10 06/05/20 23 Advanced Care Planning completed Kellen Meza [facility] 04/18/2023 09:31:00 07/16/20 22 Asthma Control Test (12 + years old) completed Kellen Meza [facility] 07/16/2022 08:29:27 03/16/20 22 [facility] 09:17:39 03/16/20 22 Alcohol use screening completed [facility] 03/16/2022 09:17:39 03/16/20 22 Advanced Care Planning completed Cynthia Romo PA-C [address] [place] [address], [phone], [facility] 03/16/2022 12:46:19 11/18/19 22 biopsy of temporal artery completed Cynthia Romo PA-C [address] [place] [address], [phone], [facility] 11/20/2021 07:44:20 09/15/19 22 Asthma Control Test (12 + years old) completed Krista Shay [facility] 09/15/2021 10:13:57 02/11/20 21 Medicare Wellness Visit completed Nimo Worthington MA [facility] 02/08/2021 13:47:52 02/11/20 21 prevention-card iovascular risk reduction counseling completed Nimo Worthington MA [facility] 02/08/2021 13:47:52 02/11/20 21 prevention-howard al alcohol misuse screening completed Nimo Worthington MA [facility] 02/08/2021 13:47:52 02/11/20 21 Asthma Control Test (12 + years old) completed Cynthia Romo PA-C [address] [place] [address], [phone], [facility] 02/14/2021 13:40:34 07/14/20 20 51869: Therapeutic Exercise completed Shana Schofield, PT [address] [place], [phone], [facility] 07/17/2020 19:32:09 07/06/20 20 46230: Therapeutic Exercise completed Shana Schofield, PT [address] [place], [address], [facility] 07/06/2020 08:04:57 06/29/20 20 Physical Activity Counselling completed Shana Schofield, PT [address] [place], [phone], [facility] 07/05/2020 23:15:20 06/29/20 20 15103: PT Eval Low Complexity completed Shana Schofield, PT [address] [place], [address], [facility] 07/05/2020 23:15:25 02/08/20 20 Medicare Wellness Visit completed Rebecca Laws MA [facility] 02/05/2020 16:42:35 02/08/20 20 prevention-card iovascular risk reduction counseling completed Rebecca Laws MA [facility] 02/05/2020 16:42:35 02/08/20 20 prevention-howard al alcohol misuse screening completed Rebecca Laws MA [facility] 02/05/2020 16:42:35 02/08/20 20 Asthma Control Test (12 + years old) completed Cynthia Romo PA-C [address] [place] [address], [phone], [facility] 02/09/2020 12:18:47 02/07/20 19 Medicare Wellness Visit completed Rebecca Laws MA [facility] 02/06/2019 14:33:58 12/29/19 19 POC Strep Testing completed Latosha Delcid MA [facility] 12/28/2018 09:16:54 09/16/19 19 Medicare Risk for Falls Screen completed Rebecca Laws MA [facility] 09/16/2018 14:38:15 01/31/20 18 Medicare Wellness Visit completed Ashli Pacheco MA [facility] 01/30/2018 14:53:22 01/10/20 17 Medicare Wellness Visit completed Ashli Pacheco MA [facility] 01/09/2017 14:35:04 01/06/20 16 Medicare Wellness Visit completed Ashli Pacheco MA [facility] 01/06/2016 14:21:09 01/05/20 15 Medicare Wellness Visit completed Ashli Pacheco MA [facility] 01/04/2015 10:33:42 03/03/20 14 Tassoni - EGD completed Emory Leo MD [address] [place], [address], [facility] 03/03/2014 11:58:35 12/30/19 14 Medicare Wellness Visit completed Ashli Pacheco MA [facility] 12/29/2013 09:45:55 12/30/19 14 Asthma Control Test (12 + years old) completed Laura Franco NP [address] [place], [address], [facility] 12/29/2013 10:31:15 12/27/19 13 Medicare Wellness Visit completed Ashli Pacheco MA [facility] 12/26/2012 09:31:06 12/27/19 13 Asthma Control Test (12 + years old) completed Ashli Pacheco MA [facility] 12/26/2012 09:42:38 05/21/20 12 Asthma Control Test (12 + years old) completed Laura Franco NP [address] [place], [address], [facility] 05/21/2012 14:22:52 10/24/19 12 Medicare Wellness Visit completed Ashli Pacheco MA [facility] 10/24/2011 15:04:21 02/08/20 09 Treatment and Advice completed Ashley Mota, PT [address] [place], [address], [facility] 02/07/2009 11:03:34 11/16/19 09 Skin Tag Removal (each additional 10) completed Haley Saba MD [address] [place] [address], [phone], [facility] 11/15/2008 16:09:59 08/12/18 70 Bladder Surgery completed Adelaida Rose [facility] 12/17/2014 08:38:13 Pmkr, dual, rate-resp completed Cynthia Romo PA-C [address] [place] [address], [phone], [facility] 12/31/2019 14:16:27 Imaging Results None recorded. Procedure Notes None recorded. Medical Equipment None Reported. Allergies Allergen ID Allergen Name Allergen Category Reaction Reaction Severity Criticality Documentation Date Start Date Code Code System Note Provider Name and Address Organization Details Recorded Time [id number] atovaquon e / proguanil medicatio n itching Not available Not available 12/26/2012 76280 3 RxNorm Laura Franco NP [address] [place] [address], [phone], [facility] 3 09:51:17 152726 Wixela medicatio n other moderate Not available 02/07/2019 39494 06 RxNorm sever e muscl e cramp s lasti ng three hours Cynthia Romo PA-C [address] [place] [address], [phone], [facility] 9 06:43:03 6489 erythromy brenda medicatio n rash Not available Not available 11/01/2008 4053 RxNorm Not Available [facility] 06:05:20 Medications Name Sig Start [...] SWALLOWI NG. USE 4 TIMES A DAY 03/27 /2023 completed Not Available Not Available Not Available prednison e 10 mg tablet TAKE 1.5 TABLETS BY MOUTH EVERY DAY FOR 30 DAYS 03/04 completed on 11mg not 10 01/09/23 SM Not Available Not Available Not Available doxycycli ne hyclate 100 mg capsule Take 1 capsule twice a day by oral route for 14 days. 11/21 completed pt did not take 11/10/21 KRB, not using 11/15/21 sf Not Available Not Available Not Available Carafate 100 mg/mL oral suspensio n [...] Not Available prednison e 20 mg tablet TAKE 2 TABLETS EVERY DAY BY ORAL ROUTE FOR 5 days 2024 active Not Available Not Available Not Avai lable prednison e 5 mg tablet TAKE 1 [...] DAY BY ORAL ROUTE FOR 30 DAYS. 02/10 completed taperiin g off 02/09/25 Not Available Not Available Not Available benzonata te 100 mg capsule TAKE 1 CAPSULE BY MOUTH THREE TIMES A DAY FOR 7 DAYS 11/24 completed Not Available Not Available Not Available prednison e 2.5 mg tablet TAKE 5 TABLETS FOR TWO WEEKS THEN TAPER TO 4 TABLETS FOR ONE MONTH. 11/26 completed Not Available Not Available Not Available cephalexi n 500 mg capsule Take 1 capsule every 6 hours by oral route for 5 days. 2024 active Not Available Not Available Not Avai lable ranitidin e 150 mg tablet Take 1 [...] every day by oral route before meals. 12/26/ 2013 active Not Available Not Available Not [...] e 50 mcg/actua tion nasal spray,[facility] [place] 1-2 sprays in each nostril once daily [...] hours by oral route as needed for 5 days. 2024 active Not Available Not Available Not Avai lable magnesium 200 mg tablet Take 2 tablets every day by oral route. 09/16 completed Not currentl y taking 09/16/18-a h Not Available Not Available Not Available Vitamin D2 10 mcg (400 unit) tablet 2006 active Take 1.00 tabs daily Not Available Not Available Not Available DentaGel 1.1 % USE 1 TO 2 TIMES DAILY WITH PEA SIZED AMOUNT,W AIT 30 MINTUES TO EAT OR DRINK 02/10 completed not taking 02/09/25 Not Available Not Available Not Available cyclobenz aprine 5 mg tablet TAKE 1 TABLET BY MOUTH EVERYDAY AT BEDTIME active Not Available Not Available No t Available metoprolo l tartrate 25 mg tablet TAKE 2 TABLETS BY MOUTH 2 TIMES A DAY. 04/19 completed Not Available Not Available Not Available magnesium 1 tablet a day active Not Available Not Available No t Available calcium 1 tablet daily active 600 mg Not Available Not Available No t Available omeprazol e 12/16 completed pt not taking 10/16/24 mp Not Available Not Available Not Available Vitamin D3 1000 IU daily active Not Available Not Available No t Available multivita min 11/01 completed qd Not Available Not Available Not Available Robbins Delvandanae Digital Monitor kit 2007 active use as [...] Not Available Not Available Not Available Eliquis 2.5 mg tablet TAKE 1 TABLET BY MOUTH TWICE A DAY 02/08 completed per cardio note 02/08/25 Not Available Not Available Not Available Breo Ellipta 100 mcg-25 mcg/dose powder for inhalatio n Inhale 1 puff every day by inhalati on route. 09/15 completed Not Available Not Available Not Available Actemra 162 mg/0.9 mL subcutane ous syringe Inject 0.9 mL every week by subcutan eous route. active Not Available [...] 1.17 mL subcutan eously once a month 12/16 completed Not Available Not Available Not Available Evenity dose unknown, 1 shots per month by Rheum 12/16 completed Not Available Not Available Not Available Afluria Qd 2019-20 (36 mos up)(PF)60 mcg (15 mcg x4)/0.5 [...] blood by Pulse oximetry Heart rate Systolic And Diastolic Provider Name and Address Organization Details Last Updated DateTime 5 162.56 cm 20.8 kg/m2 55571.0 8 g 99 % 99 % 66 /min 118/64 mm[Hg] Ginny Mcdaniel [facility] 11:00:28 Date Recorded Systolic And Diastolic Provider Name and Address Organization Details Last Updated DateTime 11/23/2024 100/60 mm[Hg] Kellen Nuno RN [facility] 11/24/2024 15:05:57 Date Recorded Body height Body mass index (BMI) Body weight Systolic And Diastolic Provider Name and Address Organization Details Last Updated DateTime 12/16/2024 162.56 cm 20.6 kg/m2 24047.08 g 117/74 mm[Hg] Kellen Meza Zeb [facility] 12/16/2024 11:44:58 Date Recorded Body height Body mass index (BMI) Body weight Heart rate Systolic And Diastolic Systolic And Diastolic Provider Name and Address Organization Details Last Updated DateTime 162.56 cm 21 kg/m2 96156.6 7 g 72 /min 134/82 mm[Hg] 132/70 mm[Hg] Rima Mendoza [facility] 14:36:16 Date Recorded Body height Body mass index (BMI) Body weight Heart rate Systolic And Diastolic Provider Name and Address Organization Details Last Updated DateTime 05/18/2024 162.56 cm 21.1 kg/m2 87661.56 g 65 /min 118/68 mm[Hg] Ginny Mcdaniel [facility] 05/18/2024 12:08:22 Date Recorded Body height Body mass index (BMI) Body weight Heart rate Systolic And Diastolic Provider Name and Address Organization Details Last Updated DateTime 07/08/2024 162.56 cm 21 kg/m2 14911.37 g 71 /min 118/68 mm[Hg] Alena Gregg LPN [facility] 07/08/2024 14:04:33 Social History Question Answer Notes LastModified by Organizat ion Details LastModified Time Tobacco Smoking Status Former Smoker quit in her 20's Gerri evans, [facility] 12/29/2010 15:05:32 Do You Have An Advance Directive? No [email or web address] Information not available 10/18/2011 How Much Tobacco Do You Chew? None Information not available 09/20/2011 What Type Of Diet Are You Following? REGULAR Information not available 09/20/2011 Education Post Graduate Information not available 01/04/2015 What Is The Highest Grade Or Level Of School You Have Completed Or The Highest Degree You Have Received? [id number] [email or web address] Information not available 06/05/2023 Have There Been Any Changes To Your Family Or Social Situation? Yes Is Worried Abt Partner [email or web address] Information not available 06/05/2023 When Did You Quit Smoking? 16+yearssinc [email or web address] te Information not available 04/20/2015 How Many Days In The Past Year Have You Had A Heavy Drinking Consumption (4+ Female, 5+ Male)? 0 Information not available 04/20/2015 Are There Any Guns Present In Your Home? No Information not available 09/20/2011 Do You Use Insect Repellent Routinely? Yes [email or web address] Information not available 06/05/2023 Live Alone Or With Others? With Others Information not available 09/20/2011 Have Your Ever Had Any Service? No [email or web address] Information not available 10/16/2024 Patient Has Health [...] Date Of Your Most Recent Tobacco Screening? 02/19/2025 Information not available 02/19/2025 How Many Children Do You Have? 0 Information not available 09/20/2011 What Is Your Current Pack Years? 10packyears Information not available 04/20/2015 What Is Your Relationship Status? Domestic Partner Anne [email or web address] Information not available 06/05/2023 Do You Use Your Seat Belt Or Car Seat Routinely? Yes Information not available 06/05/2023 Seat Belts Used Routinely Yes Information not available 09/20/2011 Smoke Alarm In Home Yes Information not available 09/20/2011 Do You Have Smoke And Carbon Monoxide Detectors In Your Home? Yes [email or web address] Information not available 06/05/2023 Are You Passively Exposed To Smoke? No [email or web address] Information not available 06/05/2023 How Much Tobacco Do You Smoke? No Information not available 11/17/2019 General Stress Level Low Information not available 01/06/2016 Do You Use Sunscreen Routinely? Yes Information not available 09/20/2011 Sex: Female Functional Status Question Answer Note LastModified by Organizat ion Details LastModified Time What is your level of alcohol consumption? Moderate Information not available 08/06/2013 Do you or have you ever used smokeless tobacco? Never used smokeless tobacco Information not available 11/17/2019 Are you currently employed? 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 Never used electronic cigarettes Information not available 11/17/2019 What is your exercise level? Moderate [email or web address] Information not available 06/05/2023 Mental Status None recorded. Family History Relationship Description Onset Age of this Age Resolved Age Notes LastModified by Organization Details LastModified Time Father Parkinson's disease [email or web address] Not available 2014 13:20:13 Mother Osteoporosis [email or web address] Not avail able 04/20/2015 13:20:13 Mother Malignant neoplasm of lung [email or web address] Not available 2018 14:45:12 Brother Dentin dysplasia, type II [email or web address] Not available 2018 14:44:56 Brother Type 2 diabetes mellitus [email or web address] Not available 2019 14:32:05 Maternal Aunt Malignant tumor of breast Not available 2018 14:45:22 Medical History Condition Response Pacemaker Y Atrial Fibrillation Y CARDIOVASCULAR Y RHEUMATOLOGIC Y Colon Polyps Y RENAL / GENITOURINARY Y Hypertension Y Osteoporosis Y Asthma Y Gynecological HistoryNo gynecological history recorded. Obstetrics History GPAL:G 0 P 0 0 0 0 Immunizations Vaccine Type Date Status Note Provider Nam e and Address Organization Details Recorded Time Influenza, adjuvanted, quadrivalent, PF 1 completed Rima Mendoza MA null, [facility] 02/19/2025 14:29:20 Td (adult), 5 Lf tetanus toxoid, preservative free, adsorbed 2 completed Not Available [facility] 08/29/2019 02:31:14 Influenza, split virus, trivalent, PF 3 completed Not Available [facility] 08/29/2019 02:35:41 Hep A, adult 3 completed Not Available [facility] 08/29/2019 02:33:40 typhoid, oral 3 completed Not Available [facility] 05/04/2021 14:55:06 Hep A, adult 3 completed Not Available [facility] 05/04/2021 14:55:06 Influenza, high-dose, trivalent, PF 9 completed Not Available [facility] 08/29/2019 02:25:06 Pneumococcal conjugate PCV 13 9 completed Not Available [facility] 08/29/2019 02:23:36 Influenza, high-dose, quadrivalent, PF 0 completed Marylu Arita CMA null, [facility] 06/14/2020 13:42:09 Td (adult), 2 Lf tetanus toxoid, preservative free, adsorbed 2 completed Marbella Osorio MA null, [facility] 09/19/2021 11:52:55 pneumococcal polysaccharide PPV23 2 completed Eliz Thapa RN BSN [facility], [facility] 09/25/2021 10:15:04 zoster recombinant 1 completed DAVE Enriquez null, [facility] 10/09/2024 16:27:25 zoster recombinant 0 completed Not Available [facility] 05/04/2021 14:55:06 COVID-19, mRNA, LNP-S, PF, 30 mcg/0.3 mL dose 1 completed DAVE Enriquez null, [facility] 10/09/2024 16:28:05 Influenza, high-dose, quadrivalent, PF 2 [facility] [place] 06/04/2022 10:47:04 COVID-19, mRNA, LNP-S, bivalent, PF, 50 mcg/0.5 mL or 25mcg/0.25 mL dose 3 completed El[facility] [place] 12/27/2022 14:08:17 COVID-19, mRNA, LNP-S, PF, 30 mcg/0.3 mL dose 1 completed [facility] [place] 10/09/2024 16:28:05 Influenza, high-dose, trivalent, PF 1 completed Rima Mendoza MA [facility] 02/19/2025 14:29:20 COVID-19, mRNA, LNP-S, PF, 30 mcg/0.3 mL dose 1 completed Kellen Meza RMA [facility] 10/09/2024 16:28:05 COVID-19, mRNA, LNP-S, PF, 30 mcg/0.3 mL dose 2 completed Ciara Gonzalez LPN [facility] 04/30/2022 08:35:08 COVID-19, mRNA, LNP-S, PF, 100 mcg/0.5mL dose or 50 mcg/0.25mL dose 3 completed [facility] [place] 05/20/2023 14:47:18 zoster recombinant 0 completed [facility] [place] 10/09/2024 16:27:25 Influenza, adjuvanted, quadrivalent, PF 3 completed [facility] [place] 10/09/2024 16:28:05 COVID-19, mRNA, LNP-S, bivalent, PF, 30 mcg/0.3 mL dose 2 completed Kellen Meza RMA null, [facility] 10/09/2024 16:28:05 RSV, recombinant, protein subunit RSVpreF, adjuvant reconstituted, 0.5 mL, PF 3 completed Kellen BhartiMichele [facility] [place] 10/09/2024 16:28:05 COVID-19, mRNA, LNP-S, PF, 50 mcg/0.5 mL 3 completed Kellen Meza DAVE nathan [facility] 10/09/2024 16:28:05 COVID-19, subunit, rS-nanoparticle, adjuvanted, PF, 5 mcg/0.5 mL 4 completed Kellen [place] [facility]/09/[facility]24 16:28:05 Influenza, split virus, quadrivalent, PF 9 completed Kellen ValleHajaMichele DAVE [facility] ([place] 10/09/2024 16:28:05 Past Encounters Encounter ID Performer Location Encounter Start Date Encounter Closed Date Diagnosis/Indication Diagnosis SNOMED-CT Code Diagnosis ICD10 Code Diagnosis Note [id number] Crsi Singh, [facility], OFFICE [address] [place] [address] 02/10/2002 15:56:10 09/01/2008 02:02:29 [id number] ERIN Cervantes, [facility], OFF[address] [place] [address] 6 02/16/2002 12:04:38 09/01/2008 02:02:29 [id number] WILLA Grijalva, [facility], OFFICE [address] [place] [address] 6 02/26/2002 08:48:02 09/01/2008 02:02:29 [id number] [facility] RADIOLOG[facility] , [facility] [address] [facility] [place] [address] 03/11/2002 09:28:46 09/01/2008 02:02:29 [id number] WILLA Grijalva, [facility], OFFICE [address] [place] [address] 03/13/2002 09:59:54 09/01/2008 02:02:29 [id number] [facility] - [facility] [address] [place] [address] 6 03/23/2002 14:03:34 09/01/2008 02:02:29 [id number] WILLA Grijalva , [facility], OFF[address] [place] [address] 6 03/23/2002 12:48:24 09/01/2008 02:02:29 [id number] Cris Singh [facility], OFFICE [address] [place] [address] 6 08/03/2002 13:24:04 09/01/2008 02:02:29 [id number] Cris Singh [facility], OFFICE [address] [place] [address] 6 02/04/2003 11:50:52 09/01/2008 02:02:29 [id number] [facility] - [address] [address] 02/09/2003 07:44:12 09/01/2008 02:02:29 [id number] [facility] , [address] [address] 02/15/2003 08:38:49 09/01/2008 02:02:29 [id number] Rafa Mark MD , [facility], OFFICE [address] [place] [address] 6 03/06/2003 09:19:59 09/01/2008 02:02:29 [id number] Jasmin Bautista NP , [facility], [address] [place] [address] 6 03/08/2003 09:39:49 09/01/2008 02:02:29 [id number] [facility] - [facility] [address] [place] [address] 6 08/02/2003 10:40:03 08/02/2003 10:40:24 [id number] [facility] OFFICE [address] [place] [address] 6 08/02/2003 09:45:30 08/03/2003 13:57:36 [id number] [facility] OFFICE [address] [place] [address] 6 02/17/2004 15:44:34 02/18/2004 10:42:07 [id number] [facility] - [facility] [address] [place] [address] 6 02/21/2004 09:01:48 02/21/2004 09:03:20 [id number] Cris Singh, [facility], OFFICE [address] [place] [address] 6 03/09/2004 09:10:42 03/10/2004 08:24:47 [id number] [facility] - [facility] [address] [place] [address] 6 03/10/2004 07:57:49 03/10/2004 07:57:54 [id number] [facility], [address] [place] [address] 03/13/2004 16:05:22 03/14/2004 07:15:24 [id number] [facility] , [facility] [address] [place] [address] 6 03/14/2004 16:27:39 03/15/2004 09:21:45 [id number] [facility] , [facility] [address] [place] [address] 6 03/14/2004 00:00:00 09/01/2008 02:02:29 [id number] [facility] RADIOLOGY Technologi Radiology , [facility] [address] [place] [address] 6 03/14/2004 16:05:16 03/15/2004 09:21:53 [id number] [facility] RADIOLOGY Techn[facility] Radiology , [facility] [address] [place] [address] 6 03/14/2004 00:00:00 09/01/2008 02:02:29 [id number] Cris Singh , [facility], OFFICE [address] [place] [address] 6 03/21/2004 09:18:04 03/22/2004 09:35:55 [id number] Cris Singh, [facility], OFFICE [address] [place] [address] 6 08/08/2004 15:30:08 2004 08:09:45 [id number] Cris Singh, [facility], OFFICE [address] [place] [address] 6 02/22/2005 08:38:59 02/22/2005 14:55:45 [id number] [facility] - [address] [address] 03/01/2005 07:50:04 03/01/2005 07:50:09 [id number] [facility] , [address] [address] 03/26/2005 10:23:47 09/01/2008 02:02:29 [id number] [facility] , [address] [address] 6 03/26/2005 00:00:00 09/01/2008 02:02:29 [id number] Cris Singh [facility], OFFICE [address] [place] [address] 6 07/23/2005 10:50:38 09/01/2008 02:02:29 [id number] Cris Singh [facility], OFF[address] [place] [address] 6 08/03/2005 09:33:07 09/01/2008 02:02:29 [id number] [facility] , [address] [address] 04/02/2006 08:14:44 09/01/2008 02:02:29 [id number] [facility] , [address] [address] 6 04/02/2006 00:00:00 09/01/2008 02:02:29 [id number] Cris Singh , [facility], OFFICE [address] [place] [address] 6 04/17/2006 09:42:38 04/17/2006 14:49:19 [id number] [facility] - [address] [address] 6 04/19/2006 07:58:36 04/19/2006 07:58:41 [id number] [facility] FAIRGROUND OPERATOR Radiology , [address] [address] 04/19/2006 07:57:03 09/01/2008 02:02:29 [id number] [facility] FAIRGROUND OPERATOR Radiology , [address] [address] 6 04/19/2006 00:00:00 09/01/2008 02:02:29 [id number] [facility] BONE DENSITY TECH Radiology , [address] [address] 6 05/23/2006 12:49:50 09/01/2008 02:02:29 [id number] [facility] BONE DENSITY TECH Radiology , [address] [address] 6 05/23/2006 00:00:00 09/01/2008 02:02:29 [id number] Cris Singh , [facility], OFF[address] [place] [address] 6 05/28/2006 09:40:04 05/28/2006 15:30:09 [id number] Cris Singh , [facility], OFFICE [address] [place] [address] 6 08/28/2006 12:06:29 08/29/2006 09:35:35 [id number] [facility] RADIOLOGY [facility] , [address] [address] 08/29/2006 10:47:51 08/30/2006 09:14:11 [id number] [facility] RADIOLOGY Techn[facility] Rad[facility] , [address] [address] 6 08/29/2006 00:00:00 09/01/2008 02:02:29 [id number] [facility] FAIRGROUND OPERATOR Radiology , [address] [address] 6 09/02/2006 14:51:34 09/03/2006 09:15:57 [id number] [facility] FAIRGROUND OPERATOR Radiology , [address] [address] 6 09/02/2006 00:00:00 09/01/2008 02:02:29 [id number] Tomas Sierra , PT Physical Therapy, [address] [address] 6 09/02/2006 12:27:24 09/01/2008 02:02:29 [id number] Cris Singh, [facility], OFF[address] [place] [address] 11/18/2006 10:57:52 11/20/2006 16:10:46 [id number] Cris Singh, [facility], OFF[address] [place] [address] 6 02/26/2007 13:21:04 02/28/2007 10:09:36 [id number] ERIN Cervantes, [facility], OFF[address] [place] [address] 6 03/14/2007 08:04:39 03/14/2007 10:13:42 [id number] [facility] , [facility] [address] [place] [address] 6 05/05/2007 10:13:38 05/06/2007 09:28:49 [id number] [facility] , [facility] [address] [place] [address] 6 05/05/2007 00:00:00 09/01/2008 02:02:29 [id number] [facility] OFFICE [address] [place] [address] 6 05/20/2007 14:44:17 09/01/2008 02:02:29 [id number] [facility] - [facility] [address] [place] [address] 05/23/2007 08:57:38 05/23/2007 08:57:41 [id number] WILLA Grijalva, [facility], OFFICE [address] [place] [address] 6 06/16/2007 14:28:34 06/19/2007 14:27:53 [id number] Cris Singh [facility], OFFICE [address] [place] [address] 6 08/13/2007 13:34:50 09/01/2008 02:02:29 [id number] ERIN Sellers, [facility], OFF[address] [place] [address] 6 09/03/2007 08:18:57 09/01/2008 02:02:29 [id number] WILLA Grijalva [facility], OFFICE [address] [place] [address] 6 09/09/2007 14:38:42 09/01/2008 02:02:29 [id number] ERIN Christensen, [facility], OFFICE [address] [place] [address] 6 01/13/2008 10:47:34 09/01/2008 02:02:[id number] [facility] Radiology , [address] [address] 05/11/2008 08:19:57 05/12/2008 09:14:25 [id number] [facility] Rad[facility] , [address] [address] 05/11/2008 00:00:00 09/01/2008 02:02:29 [id number] [facility] - [address] [address] 05/11/2008 08:08:29 05/11/2008 08:08:33 [id number] ERIN Christensen, [facility], OFFICE [address] [place] [address] 6 05/25/2008 11:03:57 09/01/2008 02:02:29 [id number] [facility] , [address] [address] 6 05/25/2008 14:44:49 05/26/2008 09:35:05 [id number] [facility] , [address] [address] 6 05/25/2008 00:00:00 09/01/2008 02:02:29 [id number] ERIN Christensen, [facility], OFF[address] [place] [address] 6 07/20/2008 13:52:10 09/01/2008 02:02:29 [id number] MD SANDRA Jackson, [facility], [address] [place] [address] 6 11/01/2008 11:15:54 11/03/2008 12:28:03 [id number] MD SANDRA Jackson, [facility], [address] [place] [address] 6 11/15/2008 15:27:08 11/17/2008 14:21:58 [id number] ERIN Christensen, [facility], OFFICE [address] [place] [address] 6 01/06/2009 10:47:51 01/10/2009 14:12:30 [id number] [facility] RADIOLOGY Technologi Radiology , [address] [address] 01/06/2009 11:48:31 01/11/2009 12:06:41 [id number] Ashley sellers, PT Physical Therapy, [address] [address] 6 02/07/2009 10:16:27 02/07/2009 14:39:41 [id number] ERIN Christensen, [facility], OFF[address] [place] [address] 6 05/10/2009 10:49:34 05/11/2009 15:45:12 [id number] ERIN Christensen, [facility], OFF[address] [place] [address] 6 05/31/2009 09:38:27 06/01/2009 12:20:00 [id number] [facility] FAIRGROUND OPERATOR Radiology , [address] [address] 6 06/07/2009 13:20:43 06/08/2009 14:10:07 [id number] [facility] - [address] [address] 10/25/2008 07:40:31 10/25/2008 07:40:36 [id number] [facility] RADIOLOGY Techn[facility] Radiology , [address] [address] 6 01/06/2009 00:00:00 06/09/2009 02:00:52 [id number] [facility] - [address] [address] 6 05/16/2009 07:55:39 05/16/2009 07:55:53 [id number] [facility] FAIRGROUND OPERATOR Radiology , [address] [address] 6 06/07/2009 00:00:00 06/09/2009 02:00:52 [id number] WILLA Grijalva, [facility], OFFICE [address] [place] [address] 07/29/2009 14:06:23 08/01/2009 16:31:58 [id number] ERIN Christensen, [facility], OFF[address] [place] [address] 6 08/16/2009 10:48:50 08/18/2009 12:21:54 [id number] ERIN Christensen, [facility], OFF[address] [place] [address] 6 08/31/2009 11:23:19 08/31/2009 15:47:46 [id number] ERNI Christensen, [facility], OFF[address] [place] [address] 6 11/22/2009 13:48:01 11/23/2009 10:26:02 [id number] WILLA Grijalva, [facility], OFF[address] [place] [address] 6 12/13/2009 12:01:36 12/15/2009 11:44:14 [id number] [facility] FAIRGROUND OPERATOR Radiology , [facility] [address] [place] [address] 6 12/15/2009 07:48:19 12/16/2009 11:49:23 [id number] ERIN Christensen, [facility], OFFICE [address] [place] [address] 12/20/2009 10:24:22 12/20/2009 16:23:24 [id number] ERIN Christensen, [facility], OFF[address] [place] [address] 02/01/2010 13:34:21 02/02/2010 12:41:37 [id number] ERIN Christensen, [facility], [address] [place] [address] 6 08/15/2010 14:07:15 08/15/2010 17:26:17 [id number] Adriana Lin , [facility], OFF[address] [place] [address] 10/09/2010 09:07:32 10/13/2010 10:21:47 [id number] ERIN Christensen, [facility], [address] [place] [address] 10/18/2010 07:45:05 10/18/2010 12:53:36 [id number] ERIN Romero, [facility], [address] [place] [address] 12/25/2010 11:14:49 12/28/2010 11:51:43 [id number] MD SANDRA Jackson, [facility], [address] [place] [address] 6 12/29/2010 14:39:22 01/01/2011 13:52:13 [id number] Laura Franco NP [facility], [facility], [address] [place] [address] 03/15/2011 11:45:30 03/15/2011 12:22:22 [id number] Laura Franco WOMEN NURSE FP, [facility], [address] [place] [address] 6 06/01/2011 07:37:09 06/04/2011 08:42:43 [id number] Laura Franco NP [facility], [facility], [address] [place] [address] 6 09/20/2011 11:06:38 09/20/2011 12:27:29 [id number] Laura Franco NP FP, [facility], [address] [place] [address] 6 10/24/2011 14:08:25 10/26/2011 12:03:09 [id number] Laura Franco NP FP, [facility], [address] [place] [address] 03/14/2012 13:12:05 03/14/2012 16:30:06 [id number] Laura Franco NP FP, [facility], [address] [place] [address] 6 05/21/2012 13:40:57 05/21/2012 14:17:48 [id number] Laura Franco NP FP, [facility], [address] [place] [address] 6 06/04/2012 10:06:40 06/04/2012 10:58:33 [id number] Laura Franco NP FP, [facility], [address] [place] [address] 6 08/21/2012 13:19:26 08/21/2012 14:00:32 [id number] Laura Franco NP FP, [facility], [address] [place] [address] 6 11/06/2012 15:16:34 11/07/2012 10:33:14 [id number] WILLA Morin FP, [facility], [address] [place] [address] 6 11/21/2012 11:51:30 11/21/2012 12:38:03 [id number] Laura Franco NP FP, [facility], [address] [place] [address] 6 12/26/2012 09:18:00 12/26/2012 10:18:48 [id number] SIVAKUMAR Montero , [facility], [address] [place] [address] 6 02/17/2013 07:43:11 02/17/2013 08:20:30 [id number] Laura Franco NP , [facility], [address] [place] [address] 04/21/2013 11:35:07 04/22/2013 14:00:34 Anxiety 62162459 Chest wall pain 613258906 Declines xray - would not likely change tx - to call with persistent or increased sx. [id number] ERIN Christensen, [facility], [address] [place] [address] 08/06/2013 09:04:15 08/06/2013 09:53:47 Anxiety 35579501 Lorazepam for prn use Emotional support On examina tion - a rash 316678276 Strongly enc rare use of prednisone . Keep record of use and bring to next appt Infective hepatitis immunization 333452441 Gastroesop hageal reflux disease 534740330 Trial of ranitidine , GERD precaution s. RTC prn sx persist or increase [id number] Laura Franco NP , [facility], [address] [place] [address] 08/20/2013 11:42:00 08/20/2013 12:28:31 Anxiety 62005329 Improved. OK to continue Lorazepam for prn use Emotional support Essential hypertension 49024064 BP not at goal during this stressful time. Increase to 5mg lisinopril . Advised to check BP away from office and bring record to next appt along with any home BP equipment. Counseled re low sodium diet, regular exercise, stress mgmt. RTC 3mos. [id number] Adriana FLORES, [facility], [address] [place] [address] 12/02/2013 11:51:18 12/02/2013 12:50:35 Gastroesophageal reflux disease 027026081 Nausea, belching, and swallowing symptoms are suggestive of reflux. Pt states ranitidine never helped, and doesn't recall if the carafate was useful, but given that that was stopped, suspicion is that it may not have been helpful. Would recommend a trial of omeprazole short term to determine if there is a reflux component, but would want to be careful going forward with calcium absorption . Abdominal pain 04145834 Recommend labwork, trial of dairy free. Question if there is is a worsening of symptoms due to stressors. Recommenda tions as below. [id number] ERIN Christensen, [facility], [address] [place] [address] 12/29/2013 09:18:30 12/29/2013 10:23:40 Adult health examination 308575067 see Risk Assessment and Lifestyle Change Counseling section above Counseling [id number] Essential hypertension 69513128 Pt will reduce lisinopril to 2.5mg - cont to monitor Asthma 532801196 Mainly exercise induced asthma -sl worse lately with pollens. COnt prn inhaler use Report concerns, persistent sx. [id number] ERIN Christensen, [facility], [address] [place] [address] 02/09/2014 13:24:05 02/09/2014 14:15:35 Corneal abrasion 72498943 Abdominal pain 22492839 [id number] Emory Leo MD [facility], [address] [address] 03/03/2014 11:00:05 03/03/2014 14:23:08 [id number] ERIN Christensen, [facility], [address] [place] [address] 03/16/2014 13:24:38 03/16/2014 16:06:54 Abdominal pain 97866331 Will r/o pelvic pathology - back to GI if normal and sx persist. Pt agrees with plan [id number] ERIN Christensen, [facility], [address] [place] [address] 03/25/2014 15:22:39 03/29/2014 14:22:14 Benign neoplasm of skin 60737050 reassured sunscreen, routine derm eval Uterine leiomyoma [id number] pt to call with name of MD for referral [id number] ERIN Christensen, [facility], [address] [place] [address] 06/29/2014 11:12:32 06/29/2014 11:53:36 Benign essential hypertension 9561493 Blood pressure at goal Eruption 964297222 derm consult this is persistent and recurrent rash - likely eczematous Asthma 050003131 Mainly exercise induced asthma -stable COnt prn inhaler use Report concerns, persistent sx. Gastroesop hageal reflux disease 745140250 stable [id number] Jenna Llamas MD , [facility], [address] [place] [address] 07/20/2014 13:35:59 07/20/2014 14:36:46 Rib pain 842950255 [id number] Adriana Lin , [facility], OFFICE [address] [place] [address] 10/28/2014 13:35:09 10/28/2014 15:11:18 Pharyngitis 551968811 [id number] Amanda Lyon MD [facility], [address] [address] 12/17/2014 08:14:29 12/17/2014 09:21:09 Osteoporosis 27783604 History of vertebral fracture 692342118 [id number] Laura Franco NP , [facility], [address] [place] [address] 01/04/2015 10:17:37 01/04/2015 11:15:25 Adult health examination 235423728 see Risk Assessment and Lifestyle Change Counseling section above Counseling 049212947 Benign ess ential hypertension 1007894 Blood pressure at goal Asthma 961215491 Mainly exercise induced asthma -stable COnt prn inhaler use Report concerns, increased sx. Osteopenia 206714378 BMD and NTX pending [id number] Laura Franco NP , [facility], [address] [place] [address] 02/02/2015 07:27:58 02/02/2015 08:14:53 Migraine 41782174 THis episode was likely an ocular migraine brought on by stress SHe will report any further episodes of amnesic behavior carotid u/s was normal Advised pt to also call Dr Pool to report. Stress 78433705 emotiona l support therapy to work through issues with mother Benign ess ential hypertension 1408663 Blood pressure at goal Acute ill- defined cerebrovascular disease 839004502 seems related to stress/simone anshu report ANY further episodes reviewed with Dr Richardson who agrees with plan [id number] Amanda Lyon MD Endocrino aleksandr, [facility] [address] [place] [address] 02/24/2015 08:55:16 02/24/2015 09:39:05 [facility] [id number] Lana Campbell MD FP, [facility], [address] [place] [address] 04/20/2015 11:52:01 04/20/2015 12:13:52 Diarrhea 56064230 for 5-6 days, no other sx question of food poisoning or other reaction to oysters but not resolving has been eating anything and everything , worse sx after eating large or rich meals appears well hydrated stool culture ordered strict bland diet for a few days, advance as tolerated OTC antidiarrh eal okay if needed pt agrees to plan [id number] Laura Franco NP FP, [facility], [address] [place] [address] 06/28/2015 11:13:22 06/28/2015 12:04:16 Screening for disorder 964523659 Z11.59 Disorder of breast 81076 008 N64.9 exam appears normal report further changes or concerns continue annual screening Asthma 348092033 J45.90 9 Mainly exercise induced asthma -stable COnt prn inhaler use Report concerns, increased sx. Benign ess ential hypertension 1164816 I10 Blood pressure at goal Stress 66553710 Z73.3 emotional support therapy to work through issues with mother [id number] Laura Franco NP FP, [facility], [address] [place] [address] 08/26/2015 08:06:43 08/26/2015 08:51:27 Screening for disorder 349988285 Z11.59 Chronic hoarseness 27534 08709 105 R49.0 Benign ess ential hypertension 2185490 I10 Blood pressure at goal Anxiety 41117026 F41.9 Improved. OK to continue Lorazepam for prn use Emotional support [id number] Laura Franco NP FP, [facility], [address] [place] [address] 01/06/2016 14:03:12 01/06/2016 15:08:26 Adult health examination 236699710 Z00.00 see Risk Assessment and Lifestyle Change Counseling section above Counseling 665482097 Z71 .9 Essential hypertension 10230973 I10 at goal on low dose med Eruption 245456592 R21 ok to take very prn medrol for severe exacerbati on - while traveling reviewed severe risks from prolonged use of this med [id number] Laura Franco NP , [facility], [address] [place] [address] 04/03/2016 10:09:29 04/03/2016 11:09:47 Headache 09321689 R51 likely migraine -slowly improvingw ill check labsreport persistent or increased sx [id number] Laura Franco NP , [facility], [address] [place] [address] 07/03/2016 11:24:27 07/03/2016 12:00:54 Benign essential hypertension 3070897 I10 Blood pressure at goal Anxiety 63447543 F41.9 Improved. OK to continue Lorazepam for prn use Emotional support Insomnia 619392408 G47.0 0 discussed sleep hygiene. [id number] Adriana Lin , [facility], [address] [place] [address] 12/25/2016 10:32:02 12/25/2016 10:48:32 Tick bite without infection 036873218 W57.XXXA - As discussed, does not currently meet criteria for preventive antibiotic s (tick was on less than 24 hours, although it does seem to be a deer tick)- Return to office if you develop fever, chills, bullseye rash, joint pain or swelling [id number] Laura Franco NP , [facility], [address] [place] [address] 01/09/2017 14:14:34 01/09/2017 15:21:29 Adult health examination 981111564 Z00.00 see Risk Assessment and Lifestyle Change Counseling section above Counseling 377022234 Z71 .9 Benign ess ential hypertension 6155012 I10 Blood pressure at goal 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 stable [id number] Jenna Llamas MD , [facility], [address] [place] [address] 05/16/2017 14:52:37 05/16/2017 15:31:16 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 [id number] Laura Franco NP , [facility], [address] [place] [address] 01/30/2018 14:10:37 01/30/2018 15:29:39 Adult health examination [id number] Z00.00 see Risk Assessment and Lifestyle Change Counseling section above Counseling [id number] Z71 .9 Depression screening 171 428735 Z13.89 depression screening tool administer ed, entered into emr, scored and discussed, time greater than 7.5 minutes Benign ess ential hypertension [id number] I10 BP low - advised to hold lisinopril and report higher readings >140/90 Active or passive immunization [id number] Z23 reviewed info from CDC website on trave to [place]. 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 The bilateral and non-radicu lar nature of the pain make bone, skin, and c-spine causes unlikely. She is relieved. She intends to reduce how much she is playing. She can see PT if needed to suss this out. [id number] Adriana Lin , [facility], [address] [place] [address] 06/02/2018 08:28:21 06/02/2018 09:01:54 Cellulitis 165848823 L03.90 Plan on prophylaxi s and treatment of skin infection with doxycyclin e. [id number] Laura Franco NP , [facility], [address] [place] [address] 07/24/2018 13:45:58 07/25/2018 12:21:36 Asthma 268395218 J45.909 Mainly exercise induced asthma -stable COnt prn inhaler use Report concerns, increased sx. Adult heal th examination 687516447 Z00.00 see Risk Assessment and Lifestyle Change Counseling section above Epiretinal membrane [address] Russ -surgical repair 07/30 - no contraindi cations - cleared for surgery Preoperati ve cardiovascular examination 501612832 Z01.810 low risk for CV complicati on during upcoming eye surgery. [id number] Adriana FLORES, [facility], [address] [place] [address] 08/07/2018 10:05:59 08/07/2018 10:49:37 Essential hypertension 29494078 I10 Poorly controlled . Increase lisinopril to 5mg. Decrease salt in diet. Continue to monitor BP at home. Recheck BMP and BP at nurse visit in 4 weeks, when she returns from [place]. Seek emergency care with BP >180/>120, severe headache, chest pain, vision blurring/l oss, focal neuro deficits. [id number] Adriana FLORES, [facility], [address] [place] [address] 09/16/2018 14:34:16 09/16/2018 16:27:42 Dyspnea 952803814 R06.00 - start symbicort twice daily- use albuterol every 4-6 hours as needed for cough or shortness of breath and wheezing Community acquired pneumonia 788374706 J18.9 - complete entire course of antibiotic s as prescribed - return to office if symptoms are not improving Essential hypertension 19126197 I10 - blood pressure improved and at goal of less than 150/90- continue current medication s [id number] Adriana FLORES, [facility], OFFICE [address] [place] [address] 10/03/2018 13:17:09 10/03/2018 14:54:25 Active or passive immunization 597716059 Z23 Moderate p ersistent asthma 950510704 J45.40 Please take Advair twice per day regardless of symptoms, and rinse your mouth out after each use. Albuterol is a rescue inhaler and should be used as needed only. Controlled asthma symptoms are needing albuterol twice per week or less. Please return to the clinic if you need albuterol more than twice per week. Signs of worsening asthma are shortness of breath and wheezing that are not responding to treatment, cough, increased mucus production , or fever. Community acquired pneumonia 791983861 J18.9 - symptoms improving- has residual cough that may last a few weeks [id number] MD SANDRA Covington, [facility], OFFICE [address] [place] [address] 10/24/2018 14:35:18 10/27/2018 12:46:18 Dysfunction of eustachian tube 22304922 H69.91 [id number] Adriana Lin [facility], OFFICE [address] [place] [address] 11/24/2018 08:23:22 11/24/2018 11:31:39 Essential hypertension 01101230 I10 - blood pressure improved and at goal of less than 140/90- continue lisinopril 10mg Palpitations 86647687 R0 0.2 - without chest pain- will schedule holter monitor for this week, not currently available today- return to office if become more frequent or associated with chest pain or shortness of breath, or worse during exercise- alcohol, caffeine, and stress can increase the frequency Active or passive immunization 497616630 Z23 Asthma 024029431 J45.90 9 Please take Wixela twice per day regardless of symptoms, and rinse your mouth out after each use. Albuterol is a rescue inhaler and should be used as needed only. Controlled asthma symptoms are needing albuterol twice per week or less. Please return to the clinic if you need albuterol more than twice per week. Signs of worsening asthma are shortness of breath and wheezing that are not responding to treatment, cough, increased mucus production , or fever. Anterior epistaxis 84986 4002 R04.0 - no further episodes- follow up with ENT as scheduled in January- recommend humidifier at night, nasal saline or vaseline to moisten nasal passages [id number] Adriana Lin , [facility], [address] [place] [address] 11/25/2018 15:12:37 11/26/2018 13:08:47 Palpitations 52915309 R00.2 - without chest pain- will schedule holter monitor for this week, not currently available today- return to office if become more frequent or associated with chest pain or shortness of breath, or worse during exercise- alcohol, caffeine, and stress can increase the frequency [id number] Adriana Lin [facility], OFFICE [address] [place] [address] 6 11/26/2018 15:45:46 11/28/2018 10:17:53 Palpitations 52019333 R00.2 - without chest pain- will schedule holter monitor for this week, not currently available today- return to office if become more frequent or associated with chest pain or shortness of breath, or worse during exercise- alcohol, caffeine, and stress can increase the frequency [id number] [facility] [address] [place] [address] 12/24/2018 11:52:28 12/25/2018 15:54:23 Cramp in lower limb 769958425 R25.2 - discussed possible sources of leg cramps including low magnesium or electrolyt es, side effect to medication s and dehydratio n- can try a tablespoon of mustard at bedtime- will check magnesium level but did take a supplement today so may appear normal- continue staying well hydrated and stretching often- if labs are unrevealin g we can trial off advair History of urticaria 850 [id number] 0795225 Z87.2 - to have on hand for episodes of urticaria multiform; please call the office if you are needing to use the medication [id number] Rafa Mark MD , [facility], [address] [place] [address] 12/28/2018 08:55:11 12/28/2018 10:23:33 Pain in throat 095118576 R07.0 Laryngitis 78140579 J04. 0 strongly doubrt strep given course of partners illness - and pt's sx quick strep neg and sent culture will treat supportive ly request codeine so can sleep [id number] Adriana Lin , [facility], [address] [place] [address] 02/06/2019 14:32:52 02/06/2019 16:32:59 Adult health examination 082394387 Z00.00 Counseling 253381153 Z71 .9 Depression screening 171 715381 Z13.89 - depression screening tool administer ed, entered into emr, scored and discussed, time greater than 7.5 minutes- negative screening Essential hypertension 33840592 I10 - blood pressure improved and at goal of less than 130/80- continue lisinopril 10mg Fatigue 58344233 R53.83 - will evaluate B12 levels, please do not take any supplement s for four days prior to the testing 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 63848498 J45.909 - with ongoing shortness of breath- restart Symbicort, previously caused increased BP but has been well controlled - please schedule spirometry so we can evaluate your ongoing shortness of breath Osteoporosis 11462385 M8 1.0 - stable, does weight bearing exercise and has had treated with bisphospha merary Sick sinus syndrome 3608 3008 I49.5 - 2.4 seconds, stable without dizziness or syncope- continue monitoring with cardiology Sinus bradycardia 017213 05 R00.1 - 2.4 seconds, stable without dizziness or syncope - continue monitoring with cardiology Anxiety 17119924 F41.9 - stable Dyspnea 401829271 R06.00 - start symbicort twice daily- use albuterol every 4-6 hours as needed for cough or shortness of breath and wheezing [id number] Adriana FLORES, [facility], [address] [place] [address] 03/11/2019 08:32:14 03/11/2019 09:06:04 Allergic asthma without status asthmaticus 02691289 J45.909 - with ongoing shortness of breath- restart Symbicort, previously caused increased BP but has been well controlled - please schedule spirometry so we can evaluate your ongoing shortness of breath [id number] Adriana Lin , [facility], [address] [place] [address] 06/17/2019 11:39:51 06/17/2019 15:07:41 Asthma 537203605 J45.30 - will decrease symbicort to once daily due to muscle cramps; were much worse with wixela- Albuterol is a rescue inhaler and should be used as needed only. Controlled asthma symptoms are needing albuterol twice per week or less. Please return to the clinic if you need albuterol more than twice per week. Signs of worsening asthma are shortness of breath and wheezing that are not responding to treatment, cough, increased mucus production , or fever. Counseling 437627892 Z71 .9 Essential hypertension 92681673 I10 - blood pressure improved and at goal of less than 130/80- continue lisinopril 10mg [id number] MD SANDRA Wong, [facility], [address] [place] [address] 11/17/2019 10:29:31 11/18/2019 11:19:45 Acute upper respiratory infection 82285864 J06.9 Educated patient that URI is a viral illness of the upper airways. It is not bacterial and does not benefit from antibiotic s. Average duration of URI is 7-10 days but in a recent trial, treatment at 7-10 days of illness with antibiotic s, intranasal steroids, or placebo did not alter natural history at 3 weeks. Recommende d symptomati c treatments including NSAIDS, semi-uprig ht sleep position, antihistam lizabeth at HS, limited course of nasal sympathomi metics and/or cough syrups, and nasal saline rinses with soft squeeze bottle or Neti pot. Return for fevers > 101 for 3 days, worsening sinus pain, or failure to resolve in 2-4 weeks. Tight chest 38976625 R07 .89 symptoms are the same as before, not increasing with exercise; cousneeld sounds phill a bit of a relapse, expect it to resolve in 3-7 more days; counseled about red flag symptoms [id number] Jeff Perez MD , [facility], [address] [place] [address] 11/25/2019 14:03:28 11/26/2019 09:33:37 Atrial fibrillation 70707168 I48.91 sxchest pain and SOB but this predated afibnew racing this am and yesterday, new afib on monitorshe was given medication from cardiology she agrees she will startwe will screen for COVID for underlying disease causing her sx and the afibconsid er if negative and ongoing sx, CXR and further w/ureviewe d notes/test ing from ED visit on 11/02/19 Cardiac pa harveyraffi in situ 533219755 Z95.0 August 2019some soreness at siteissue now as above Essential hypertension 44072577 I10 checks dailynotes tachycardi a not HTN lately Dyspnea 819994625 R06.00 with chest pressure/p ain and feeling of soreness in her throat with breathingh as had sx for 24 days nownot improvedne w afib on monitorwor mckenna about infection, COVID or PNAhas had PNA in past without fever or coughwe will send her for COVID testingshe will tx afibif sx persist in setting of negative COVID testing, would consider office eval and cxrif acute sx to EDf/u tomorrow with me [id number] Jeff Perez MD , [facility], [address] [place] [address] 11/26/2019 14:14:46 11/26/2019 15:38:42 Atrial fibrillation 37243270 I48.91 started eliquis and metoprolol yesterdays x have mostly resolvedwi ll monitor and continueSL OW return to exerciseav oid ETOH and marijuana on current drugs for nowhas cardiology f/u in five days Atypical chest pain 1025 74951 R07.89 see notes below Pharyngitis 698268881 J0 2.9 ongoing pressure and pain in throatless SOB, no more tachycardi anegative COVID19 testingove rall feeling betterstil l no fever/chil lsdiscusse d deferring cxr and also tx possible pna and monitoring for sx to abateshe is on day two of tx afibf/u visit with Dr Salcedo next week Cardiac pa cande in situ 729529733 Z95.0 August 2019rate at 60 today Essential hypertension 88264253 I10 checks dailynorma l rangeholdi ng lisinopril on metoprolol newlywill check daily ongoingres ume metoprolol if not at goalgoal < 130/80 Dyspnea 489459052 R06.00 not c/o SOB, more pressure pain in chest that is lessening and sore throatsee notes above [id number] Adriana Lin , [facility], [address] [place] [address] 11/30/2019 13:48:20 12/01/2019 16:26:26 Atrial fibrillation 24117990 I48.91 - recent diagnosis and titrating metoprolol with cardiology Cough 34439447 R05 - negative for COVID-19- will treat empiricall y for possible pneumonia given persistent symptoms- has spoken with cardiology who does not feel it is cardiac related- improving but persistent , with left side pleuritic pain- follow up in 3 days if not improving- would order chest xray and consider course of prednisone [id number] MD SANDRA Valdes, [facility], [address] [place] [address] 01/06/2020 11:13:57 01/07/2020 08:26:42 Cardiac pacemaker in situ 750548185 Z95.0 - recent change of lead placement Atrial fibrillation 4943 6004 I48.91 - stable rate and rhythm with medication s, hopeful that was related to pericardit is and may be able to come off some medication s, this will take time and monitoring to determine Pericardial effusion 373 860486 I31.3 - much improved with recent echo showing no further collection of fluid- has pain at drain site, well healing, and using occasional oxycodone for pain Pericarditis 3899606 I31 .9 - on colchicine , and eliquis held for now- recovery likely prolonged over the next few months- advised proceeding slowly into exercise [id number] Adriana Lin , [facility], [address] [place] [address] 02/08/2020 13:59:18 02/09/2020 14:05:20 Adult health examination 396097724 Z00.00 Counseling 273147324 Z71 .9 Cardiovasc ular risk reduction was discussed including benefits and risks of aspirin, exercise goals, healthy eating and healthy weight . Discussion greater than 7.5 minutes. Depression screening 171 991546 Z13.89 depression screening tool administer ed, entered into emr, scored and discussed, time greater than 7.5 minutes Screening for alcohol abuse 654885964 Z13.39 alcohol screening tool administer ed, entered into emr, scored and discussed, time greater than 7.5 minutes Moderate p ersistent asthma 111286487 J45.40 (symptoms or bronchodil ator use daily) PERSISTENT moderate Based on history, physical assessment , and peak flow, the patient's asthma is in control. See orders for adjustment in plan. The asthma action plan has been discussed. The patient verbalizes understand ing of medication use. The patient is in agreement with this plan. Essential hypertension 10032099 I10 - blood pressure improved and at goal of less than 130/80- continue lisinopril 10mg Sick sinus syndrome 3608 3008 I49.5 - s/p pacemaker lead replacemen t due to pericardia l effusion/p ericarditi s 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 35313447 J45.909 Please take symbicort twice per day regardless of symptoms, and rinse your mouth out after each use. Albuterol is a rescue inhaler and should be used as needed only. Controlled asthma symptoms are needing albuterol twice per week or less. Please return to the clinic if you need albuterol more than twice per week. Signs of worsening asthma are shortness of breath and wheezing that are not responding to treatment, cough, increased mucus production , or fever. Atrial fibrillation 2173 600 I48.91 - stable rate and rhythm with medication s, hopeful that was related to pericardit is and may be able to come off some medication s, this will take time and monitoring to determine- currently off anticoagul ation due to surgery and will discuss at upcoming cardiology appt when to restart Cardiac pa cande in situ 657256605 Z95.0 - recent change of lead placement Neck pain 94475734 M54.2 - taking ibuprofen and stretching - could trial lidocaine patch/christine npas- declines PT currently [id number] Adriana Lin FP, [facility], [address] [place] [address] 06/14/2020 06:49:15 06/15/2020 14:48:41 Active or passive immunization 281816316 Z23 [id number] Shana Schofield, PT Physical Therapy, [address] [address] 06/29/2020 11:42:15 07/06/2020 14:31:12 Peroneal tendinitis 29136575 M76.72 [id number] Shana Schofield, PT Physical Therapy, [address] [address] 07/06/2020 08:03:38 07/06/2020 09:57:42 Peroneal tendinitis 35713128 M76.72 [id number] Shana Schofield, PT Physical Therapy, [address] [address] 07/14/2020 13:13:07 07/17/2020 19:39:54 Peroneal tendinitis 78233644 M76.72 [id number] Adriana FLORES, [facility], OFFICE [address] [place] [address] 08/19/2020 08:48:40 08/19/2020 15:14:29 Atrial fibrillation 64910057 I48.91 - stable rate and rhythm without medication s, hopeful that was related to pericardit is - was able to come off flecainide and not on anticoagul ation; last device interogati on showed no atrial fibrillati on - following with cardiology Cardiac pa cemaker in situ 195522885 Z95.0 - in place due to hx SSS, stable Pre-surger y evaluation 883417573 Z01.818 - patient is low risk for cardiovasc ular complicati ons Essential hypertension 75526566 I10 - blood pressure improved and at goal of less than 130/80 - continue lisinopril 5mg Bilateral cataracts 9572 2003 H26.9 - planning surgery with Dr. Caruso for left eye [id number] Adriana FLORES, [facility], OFFICE [address] [place] [address] 02/10/2021 11:13:49 02/16/2021 12:28:01 Adult health examination 780474632 Z00.00 Counseling 192209127 Z71 .9 Cardiovasc ular risk reduction was discussed including benefits and risks of aspirin, exercise goals, healthy eating and healthy weight . Discussion greater than 7.5 minutes. Depression screening 171 603922 Z13.31 - depression screening tool administer ed, entered into emr, scored and discussed, time greater than 7.5 minutes- negative screening Screening for alcohol abuse 330382556 Z13.39 - alcohol screening tool administer ed, entered into emr, scored and discussed, time greater than 7.5 minutes Essential hypertension 11681921 I10 - blood pressure improved and at goal of less than 130/80- possibly low BP, will decrease lisinopril to 2.5 and monitor Mild inter mittent asthma 947831707 J45.20 (symptoms or bronchodil ator use at most two days per week) Based on history, physical assessment , and ACT, the patient's asthma is in control. Will continue the present medication s and follow up in 6 months.The asthma action plan has been discussed. The patient verbalizes understand ing medication use..The patient is in agreement with this plan.- will trial coming off symbicort and monitor for increase in asthma symptoms Osteoporosis 25928424 M8 1.0 - stable, does weight bearing exercise and has had treatment with bisphospha nates Sick sinus syndrome 3608 3008 I49.5 - s/p pacemaker lead replacemen t due to pericardia l effusion/p ericarditi s, now doing much better Candidiasis of mouth 797 30900 B37.0 - continue nystatin through dentist, return to office if not improving [id number] Adriana FLORES, [facility], [address] [place] [address] 02/24/2021 11:05:46 02/28/2021 11:44:44 Candidiasis of mouth 29762181 B37.0 - much improved and nearly resolved- culture taken today- call office if symptoms return, would do clotrimazo le troches since not resolved with nystatin [id number] Adriana FLORES, [facility], [address] [place] [address] 03/20/2021 16:41:16 03/21/2021 11:11:40 Asthma 018436188 J45.909 No abnormalit y on exam today, no concern for acute asthma exacerbati on at this timeCPhel[facility]ht has restarted Symbicort with improvemen t in symptoms, will continueDi scussed PFTs, pt would like pulm referralWi ll contact the office for any worsening symptoms [id number] Boogie Torres MD , [facility], OFFICE [address] [place] [address] 03/31/2021 15:27:29 03/31/2021 16:42:42 Atrial fibrillation 57694724 I48.91 Gastroesop hageal reflux disease 874675053 K21.9 Suspect reflux afte spicy mealResume omeprazole Check ECHOF/U Cardiology If any new or worsening rtc or seek er careRed flags for emergent care reviewed. [id number] Jason Nye MD , [facility], OFFICE [address] [place] [address] 04/20/2021 14:38:53 04/20/2021 17:05:53 Nausea 633557019 R11.0 some of this seems related to colchicine which she stopped after 2 weeks , started to Rx possible recurrent pericardit is Essential hypertension 11284172 I10 she will cont to follow , low at this time , has been labile Dyspnea on exertion 6084 5006 R06.09 she has issues for the past 4 weeks with her breathinge tiology is not clear History of pericarditis 3744218146 89321 Z86.79 She did have pericardia l fluid drained a few weeks ago, recent ECHO did not show significan t fluid Unintentio nal weight loss 160179461 R63.4 she has not been eating due to nausea , she has lost about 5 lbs [id number] Jason Nye MD , [facility], OFFICE [address] [place] [address] 05/04/2021 10:22:09 05/05/2021 07:20:24 [id number] MAURA ALMEIDA MD , [facility], OFFICE [address] [place] [address] 05/04/2021 10:36:38 05/05/2021 10:38:49 Esophagitis 37627628 K20.90 This is the likely cause of her midsternal chest pain chidi with food/drink intake. She has an appt with GI tomorrow. Likely needs EGD. Continue PPI BID for now although we discussed omeprazole can also inc creatinine (though her Cr was good at 1.5 when she was on it QD). Counseled to continue avoiding exacerbati ng factors such as NSAIDs or alcohol. Acute inju ry of kidney 5143520599 7825458 N17.[address] Blackman (nephro) later today. No longer on NSAIDs. Cr bumped up from 1.5 to 2.6 likely from dehydratio n due to fasting state. Consider decreasing omeprazole when clinically indicated as this can also increase creatinine . Raised opal orrheic keratosis 1992208922 21432 L82.1 no need for treatment, reassured. see Derm for yrly skin check as scheduled Anemia 210626930 D64.9 likely from blood draws - H/H was normal here on 04/22/21 [id number] Adriana FLORES, [facility], [address] [place] [address] 09/15/2021 10:10:05 09/19/2021 15:27:38 Essential hypertension 61688663 I10 - blood pressure improved and at goal of less than 130/80- now off medication s, continue to monitor at home Atrial fibrillation 4943 6004 I48.91 - relating to pericardit is and now resolved, pacemaker device interogati on without a fib episodes Moderate p ersistent asthma 844008429 J45.40 (symptoms or bronchodil ator use daily) PERSISTENT moderate Based on history, physical assessment , and peak flow, the patient's asthma is in control. See orders for adjustment in plan. The asthma action plan has been discussed. The patient verbalizes understand ing of medication use. The patient is in agreement with this plan. Acute inju ry of kidney 5108677226 3831071 N17.9 - from treatment of pericardit is, much improved- following with Dr Blackman Sick sinus syndrome 3608 3008 I49.5 - device interogati on stable, asymptomat ic [id number] Adriana FLORES, [facility], [address] [place] [address] 09/19/2021 11:35:36 09/20/2021 11:40:22 Active or passive immunization 624010007 Z23 Dog bite of hand 7588098 06 S61.451A Puncture wounds on R hand due to dog biteTetanu s updated today, will start Augmentin prophylact icallyDog fully vaccinated Will contact the office for any worsening symptoms [id number] Cynthia Romo PA-C , [facility], OFFICE [address] [place] [address] 09/25/2021 09:56:20 10/04/2021 15:41:26 Active or passive immunization 210717717 Z23 [id number] Jason Nye MD , [facility], [address] [place] [address] 6 10/19/2021 15:04:14 10/24/2021 13:15:53 Atrial fibrillation 01999903 I48.91 Tension-type headache 39 1103510 G44.209 Elevated blood-pressure reading without diagnosis of hypertension 692308427 R03.0 [id number] Adriana Lin , [facility] OFFICE [address] [place] [address] 24228-149 6 10/31/2021 11:45:24 11/09/2021 13:17:38 Pain of multiple joints 82174809 M25.50 - pt concerned for lyme, will check given does have dogs- no neuro symptoms or concerns for GCA 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 - bilateral TMJ and anterior neck pain, consistent with MSK injury- encouraged jaw rest - avoid chewing hard foods, soft foods only, avoid straws- consider dental appt- heat, gentle stretching massage [id number] Jason Nye MD , [facility], OFFICE [address] [place] [address] [phone] 6 11/10/2021 13:53:26 11/10/2021 16:49:02 Temporomandibular joint disorder 25661822 M26.585 [id number] Adriana Lin , [facility], OFFICE [address] [place] [address] [phone] 6 11/15/2021 07:54:58 11/24/2021 12:07:05 Temporal headache 04056499 R51.9 - concern for GCA given ongoing symptoms, now more clear temporal headache bilaterall y and mildly elevated ESR- will send for referral for biopsy- start high dose prednisone 60mg- follow up after biopsy [id number] Adriana Lin , [facility], OFFICE [address] [facility] DANIEL hernandez [phone] 6 12/04/2021 08:07:41 12/04/2021 08:31:49 Temporal arteritis 772600872 M31.6 - symptoms improving, labs today- decreased prednisone to 50mg for the next two weeks- discuss via portal - can consider decreasing to 40mg in two weeks if no recurrence of symptoms- follow up in office in 1 month- call with headaches or jaw pain [id number] Maximino Ken MD Rheumatol brendan, [facility] [address] [facility] [place] [address] 12/13/2021 07:40:41 12/15/2021 07:41:43 Temporal arteritis 269016646 M31.6 Recent diagnosis of TA, biopsy proven.Pat ient on prednisone 50 mg currently (was on 60 mg for 3 weeks and then 50 mg for 1 week).Decr ease prednisone to 40 mg in one week and take 40 mg for 2 weeks then decrease to 35 mg and take 35 mg for 2 weeks then decrease to 30 mg and take 30 mg for 2 weeks then reassess. Check inflammato ry markers every 2 weeks. Condition and side effects of prednisone discussed extensivel y with the patient as well as her risk with COVID and COVID exposure.Swathi cheng discussed, will check with [facility] and she will check if she can get it somewhere else as we have been having hard time getting it.Actmera also discussed with patient. Patient did not want to go on Bactrim. Reassess in 6 weeks. Long-term current use of systemic steroid [id number] 31445 Z79.52 Side effects of prednisone discussed in details with the patient including but not limited to increased risk of infection, GI symptoms, heartburn, ulcers, hyperglyce virgie, hypertensi on, hyperlipid emia, weight gain, easy bruising, osteopenia , osteoporos is, mood swings, glaucoma and cataract. Patient verbalized understand ing. Patient is to follow-up with her PCP on blood pressure, blood sugar, lipids. Patient to follow-up with ophthalmol brendan. Patient agreed to have a bone density.Co ntinue yoga, exercises. 2-3 servings of dairy products daily.Tiara min D 1000IU daily. [id number] MD SANDRA Banerjee, [facility], OFFICE [address] [place] [phone] 6 12/15/2021 15:01:22 12/15/2021 17:52:28 Temporal arteritis 111578508 M31.6 -qualifies for Evusheld as she is unable to receive COVID booster-re viewed risks and benefits-r eferral placed to [place] by nursing [id number] Adriana Lin , [facility], OFFICE [address] [place] [phone] 6 01/03/2022 08:14:32 02/08/2022 12:34:52 Temporal arteritis 646120881 M31.6 - symptoms improving, labs today- decreased prednisone to 40mg for the next two weeks; could then decrease to 35mg- follow up in office in 1 month- call with headaches or jaw pain Hand cramps 728620395 R2 5.2 - will check electrolyt es, may be from prednisone [id number] Maximino Ken MD Rheumatol brendan, [address] [address] 02/05/2022 13:22:02 02/05/2022 13:55:32 Temporal arteritis 434463253 M31.6 Recent diagnosis of TA, biopsy proven.Doi ng well for now.Contin ue prednisone 35 mg for 10 days.Decre ase prednisone to 30 mg for 2 weeks then 25 mg for 2 weeks.Chec k inflammato ry markers in 5 weeks.Natasha ent will call office to decide on dose after that. Patient got Evusheld. Patient did not want to go on Bactrim. RTC in 10 weeks. Long-term current use of systemic steroid [id number] 54148 Z79.52 Patient is to follow-up with her PCP on blood pressure, blood sugar, lipids.Pat ient to follow-up with ophthalmol brendan. Awaiting bone density.Co ntinue yoga, exercises. 2-3 servings of dairy products daily.Tiara min D 1000IU daily. [id number] Adriana FLORES, [facility], OFFICE [address] [place] [address] [phone] 6 01/29/2022 11:41:19 01/29/2022 12:15:53 Temporal arteritis 362750115 M31.6 - doing well on 40mg - no current headaches and normal inflammato ry markers- will continue 40mg for 3 more days and then decrease to 35mg if normal labs again- has follow up with rheum in one week- follow up six weeks- call with headaches or jaw pain [id number] Adriana FLORES, [facility], OFFICE [address] [place] [address] 02/23/2022 08:17:05 02/27/2022 08:47:35 Essential hypertension 42879023 I10 - blood pressure improved and at goal of less than 130/80- now off medication s, continue to monitor at home Active or passive immunization 064976893 Z23 covid- fully vaccinated Localized swelling, mass and lump, upper limb 095927598 R22.32 - will check ultrasound - possibly calcificat ion or clotting of superficia l vein Temporal arteritis 21253 0008 M31.6 - doing well on 30mg - no current headaches and normal inflammato ry markers- will decrease to 25mg in one week- call with headaches or jaw pain - eval for steroid induced myositis with CPK - call with any worsening pain in arms, weakness or swelling [id number] Maximino Ken MD Rheumatol brendan, [facility] [address] [place] [address] 04/23/2022 13:30:11 04/23/2022 14:09:20 Temporal arteritis 283281763 M31.6 Recent diagnosis of TA, biopsy proven.Doi ng well for now.Contin ue prednisone 10 mg for 2 weeksDecre ase prednisone to 9 mg for 3 weeks then 8 mg for 3 weeks then 7 mg for 3 weeks then 6 mg for 3 weeks then 5 mg then reassess.Meredith gutierrez inflammato ry markers in 2 months and before next visit. Patient counselled to call office if there is any worsening in her symptoms as she goes down on prednisone . Patient got Evusheld. Counselled to get flu shot and COVID booster. Patient did not want to go on Bactrim. RTC in 4 months. Long-term current use of systemic steroid 0131273630 69691 Z79.52 Patient is to follow-up with her PCP on blood pressure, blood sugar, lipids.Pat ient to follow-up with ophthalmol brendan. Bone density in 03/02 showed osteoporos is but patient unwilling to be on anti-osteo porosis meds.Ariela nue yoga, exercises. 2-3 servings of dairy products daily.Tiara min D 1000IU daily. [id number] Adriana Lin , [facility], OFFICE [address] [place] [address] 03/16/2022 09:34:49 03/20/2022 10:11:42 Adult health examination 816187532 Z00.00 Counseling 939204930 Z71 .9 Depression screening 171 481669 Z13.31 - depression screening tool administer ed, entered into emr, scored and discussed, time greater than 7.5 minutes Screening for alcohol abuse 598617476 Z13.39 - alcohol screening tool administer ed, entered into emr, scored and discussed, time greater than 7.5 minutes Advance di rective discussed with patient 968326417 Z71.89 - MOLST and proxy reviewed, no changes and full code Atrial fibrillation 4943 6004 I48.91 - relating to pericardit is and now resolved, pacemaker device interogati on without a fib episodes Essential hypertension 09227318 I10 - blood pressure improved and at goal of less than 130/80- now off medication s, continue to monitor at home Mild inter mittent asthma 127718621 J45.20 (symptoms or bronchodil ator use at most two days per week) Based on history, physical assessment , and ACT, the patient's asthma is in control. Will continue the present medication s and follow up in 6 months. The asthma action plan has been discussed. The patient verbalizes understand ing medication use.. The patient is in agreement with this plan. Screening for malignant neoplasm of breast 226322664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
--- OUTSIDE RECORDS SUMMARY | 2025-02-24 07:53 | XMS_ITS | Clinical Summary ---
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
[2025-02-24 08:02] VITALS: BP 120/72; PULSE 82; O2SAT 98; BMI 20.6
--- NOTE | 2025-02-24 08:02 | A.OFFVIS_ITS ---
Vital Signs 02/24/25 08:02 Height 5 ft 4 in Weight 120 lb 4 oz BMI 20.6 BP 120/72 Blood Pressure Location Lt brachial Position Sitting Pulse 82 Pulse Source Pulse Oximeter Pulse Oximetry (%) 98 Oxygen Delivery Method Room Air Intake Visit Reasons: Per MD Intake Note: Patients presents for a follow up appt. Allergies erythromycin base Adverse Reaction (Unknown, Verified 02/24/25 08:04) Skin Rashes, Eruption of skin HPI HPI Per MD: Details: She has been experiencing scalp pain involving temples, left side of face and jaw claudication since last week. Jaw claudication occurred last Saturday where she was unable to open her jaw. Pain was intense. She was given prednisone 60 mg from PCP then she took 40 mg daily for 3 days. She is out of prednisone today. Symptoms have improved. She has 95% relief in jaw pain. Jaw pain resolves after she takes prednisone in the morning. She has 10% pain left in her scalp/temporal region. Joint pain in extremities has resolved. She continues to bruise in her arms. Inflammatory markers have been checked 02/15/2025 and 02/19/2025 and remain normal. Patient has seen Neurology in the interim and has been diagnosed with occipital neuralgia. I spoke with her neurologist yesterday on the phone. She did not tolerate cyclobenzaprine 5 mg q.h.s. due to increase somnolence. She declined nerve block last week. Neurology did not feel that patient's current symptoms are related to trigeminal neuralgia with involving left side of the face. [facility] Medical History Atrial fibrillation History of biopsy Pericarditis Pacemaker Osteoporosis Heart disease Surgical History History of colonoscopy Family History Mother Lung cancer Breast cancer Osteoporosis Father Heart disease Social History Alcohol intake: current Alcohol type: wine Comment: 3 x week Patient Tobacco Use Status: Former Tobacco user Substance Use Type: Marijuana Physical Exam Vital Signs: Last Vital Signs Pulse 82 02/24/25 08:02 BP 120/72 02/24/25 08:02 Pulse Ox 98 02/24/25 08:02 Oxygen Delivery Method Room Air 02/24/25 08:02 BMI result Body Mass Index 20.6 Const Other: General: Comfortable CVS: RRR Respiratory: clear to auscultation bilaterally. Good respiratory effort Skin: Bruising on arms MSK: No tenderness of scalp/temporal region. [place]berden nodes present. Normal range of motion of upper extremities and lower extremities. + 2 radial pulse bilaterally. No synovitis. Assessment & Plan Assessment & Plan (1) Giant cell arteritis: Comment: Relapsed disease with 1 week history of scalp tenderness, temporal pain, left- sided jaw claudication onset last Saturday, normal inflammatory markers x2, and responsive to high dose prednisone x3 days. She has background of occipital neuralgia. We discussed next steps in management of GCA with changing steroid sparing agent Actemra to methotrexate as she relapsed when prednisone was di scontinued. Discussed side effects, benefits and drug monitoring on methotrexate. We had an extensive discussion about the risks of being on prednisone usp, which patient has unfortunately suffered such as weight gain, hair loss, easily bruising, and osteoporosis. Rinvoq is another option if she is not able to tolerate methotrexate or has relapsed disease while on methotrexate. During the time that patient was relapsing last week, she was communicating with my office daily. I have a team that communicates with my patients if there are any concerns or questions while I am in clinic seeing patients. I assured patient that I was up-to-date with her case with her daily communications with my nurse as she was communicating also with Neurology practice and obtaining labs to evaluate for disease activity. I explained to patient that I work with the team to provide high quality care to my patients while I am in clinic seeing patients. I communicated with her neurologists yesterday to coordinate care. She was scheduled for urgent evaluation today. 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 I rely on my team to facilitate communication and ongoing care in between appointments, which was explained to patient. Rheumatology history: Biopsy confirmed GCA 11/2021. She has had recurrent relapses on prednisone. Initial relapses involved recurrent headaches. 2023 she has had recurrent relapses due to scalp tenderness. Actemra 08/2022-. During the last 2 years she has had recurrent episodes of scalp tenderness, responding to temporary increases in prednisone. Inflammatory markers have remained normal. She had relapsed of GCA with normal inflammatory markers presenting with scalp pain, temporal pain, jaw claudication 02/2025 responding to high dose prednisone. Code(s): M31.6 - Other giant cell arteritis Category: Medical Plan: Lab requisition given to patient to have labs done locally in 2 weeks. 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 Fosamax [phone]. High risk for future fracture. Evenity 11/2023-10/2024 eight doses total. She had Evenity 7th dose 05/2024 [facility] Evenity 8th dose 10/22/2024 caused side effect intense polyarthralgias. Code(s): M81.0 - Age-related osteoporosis without current pathological fracture Category: Medical Qualifiers: Encounter type: subsequent encounter Fracture healing: with routine healing Osteoporosis type: age-related Presence of current pathological fracture: with current pathological fracture Qualified Code(s): M80.00XD - Age- related osteoporosis with current pathological fracture, unspecified site, subsequent encounter for fracture with routine healing Plan: Last DXA 02/2022. Bone density scheduled for March 2025 Patient does not want to continue Evenity or any other treatment for osteoporosis at this time Continue calcium carbonate 600 mg daily Continue vitamin-D 50 mcg daily Return to clinic in 3 months Orders: Orders Erythrocyte Sedimentation Rate 2 Weeks Z79.899 - Other usp (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 therapy Aspartate Amino Transferase Today M31.6 - Other giant cell arteritis, Z79.60 - skilled nursing (current) use of unspecified immunomodulators and immunosuppressants, Z79.899 - Other usp (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 therapy Complete Blood Count Auto Diff Today M31.6 - Other giant cell arteritis, Z79.60 - skilled nursing (current) use of unspecified immunomodulators and immunosuppressants, Z79.899 - Other middle or intermediate school principal (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 therapy Creatinine Today M31.6 - Other giant cell arteritis, Z79.60 - intermodal 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 operator truck driver (current) use of unspecified immunomodulators and immunosuppressants, Z79.899 - Other usp (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 therapy Lipid Panel Today M31.6 - Other giant cell arteritis, Z79.899 - Other usp (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 therapy C Reactive Protein 2 Weeks Z79.899 - Other usp (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 therapy Alanine Aminotransferase Today M31.6 - Other giant cell arteritis, Z79.60 - intermodal 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 8th injection is due at the end of June. Discontinued Reason: Doctor's Order 210 mg (2.34 mL) subcut ONCE 2.34 mL 4RF NS M81.0 - Age-related osteoporosis without current pathological fracture Coding Level of Care Code Est Pt Level 5 (85558) Complex EM visit Add On G2211 Diagnoses Giant cell arteritis M31.6 Other usp (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 therapy Z79.899 Age-related osteoporosis with current pathological fracture with routine healing, subsequent encounter M80.00XD Encounter type: subsequent encounter Fracture healing: with routine healing Osteoporosis type: age-related Presence of current pathological fracture: with current pathological fracture Time Spent (min) 40
== END 2025-02-24 08:45 | disposition home or self-care (01) ==
LOC: HO.RHES 07:50
PROVIDERS: PCP Physician Assistant Medical; Visit Provider Internal Medicine Rheumatology
DX: M31.6 Other giant cell arteritis (principal); M80.00XD Age-related osteoporosis with current pathological fracture, unspecified site, subsequent encounter for fracture with routine healing; Z79.899 Other long term (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 therapy
CPT/HCPCS: 99215; G2211

== ENCOUNTER 2025-03-16 09:28 | Outpatient (REF) | payer MEDICARE, BC, SELFPAY ==
--- NOTE | ~2025-03-16 | MM_ITS ---
EXAMINATION: DXA BONE DENSITY AXIAL HISTORY: M80.00XD - Age-related osteoporosis with current pathological fracture, ... TECHNIQUE: [employer] Dual energy absorptiometry (DEXA) of the lumbar spine, total left hip, and femoral neck was performed. COMPARISON: There are no prior studies for comparison. FINDINGS: The bone mineral density of the lumbar spine is 0.991 g/cm2, corresponding to a T-score of -1.4, and a Z-score of 0.7. This is indicative of osteopenia. The bone mineral density of the left total hip is 0.703 g/cm2, corresponding to a T-score of -2.4, and a Z-score of -0.2. This is indicative of osteopenia. The bone mineral density of the left femoral neck is 0.678 g/cm2, corresponding to a T-score of -2.6, and a Z-score of -0.2. This is indicative of osteoporosis. FRACTURE RISK: The FRAX index suggests a risk of major osteoporotic fracture of 25.9%, and of hip fracture 11.0%. MM/XR DEXA axial skeleton IMPRESSION: Based on bone mineral density, and according to World Health Organization (WHO) criteria, the diagnosis is consistent with osteoporosis. Statistically, 68% of repeat scans fall within 1 SD (+/- 0.010 g/cm2 for AP spine L1-L4) and 1 SD (+/- 0.012 g/cm2 for femur total) FRAX is a trademark of the [employer]'s [employer] Metabolic Bone Disease, a World Health Organization (WHO) Collaborating Center. Electronically signed by: Venancio Marin MD 03/16/2025 10:31 AM EDT
--- OUTSIDE RECORDS SUMMARY | 2025-03-16 09:53 | XMS_ITS | Encounter Summary ---
Author Organization [facility] Address [address] [place] [address] Phone Care Team Providers Care Construction Trench Digger Name Role Phone Emory Posey MD Unavailable [phone] Abram Mcallister MD Unavailable Breanna Garcia MD Unavailable [phone] Cynthia Romo Primary Care Provider + [phone] Encounter Details Date Type Department Care Team (Late st Contact Info) Description 09/21/2019 Ancillary Orders Non-Invasive Cardiology [address] [place] [address] Emmett Alfredo MD [address] [place] [address] [email or web address] Sick sinus syndrome Social History Tobacco Use Types Packs/Day Years Used Date Smoking Tobacco: Former Cigarettes Q uit: 1972 Smokeless Tobacco: Never Comments:30 Alcohol Use Standard Drinks/Week Comments Yes 0 (1 standard drink = 0.6 oz pur e alcohol) 1 glasses of wine daily Comments No Sex and Gender Information Value Date Recorded Sex Assigned at Female 10/26/2018 7:35 AM EDT Legal Sex Female 10:08 PM EDT Gender Identity Female 10/26/2018 7:35 AM EDT Sexual Orientation Lesbian or [place] 10/26/2018 7: 35 AM EDT Occupation Industry Job Start Date Job End Date 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 Not on file Not on joceline e Not on file documented as of this encounter Plan of Treatment Not on file documented as of this encounter Visit Diagnoses Diagnosis Sick sinus syndrome Sinoatrial node dysfunction documented in this encounter Additional Health Concerns Infection Onset Date Last Indicated Resolved Time CoV-Risk Comment:COVID-19 test pending 11/25/2019 11/25/2019 12/09/2019 1:23 AM EDT CoV-Risk 05/11/2024 05/11/2024 05/22/2024 1:22 AM EDT documented as of this encounter Care Teams Construction Trench Digger Relationship Specialty Start Date End Date Cynthia Romo PA [address] [place] [id number] PCP - General Director Of Finance 10/26/18 Emory Posey MD [address] [place] [address] [place] [address] Historical LMR Provider 05/27/17 2 Abram Mcallister MD [address] [place] [id number] [email or web address] Historical LMR Provider 05/27/17 08/19/21 Breanna Garcia MD [address] [place] [id number] Historical LMR Provider 05/27/17 08/19/21 documented as of this encounter Additional Source Comments The information contained in this document represents components of the legal health record. It is not the complete legal health record.[facility]
--- OUTSIDE RECORDS SUMMARY | 2025-03-16 09:53 | XMS_ITS | Clinical Summary ---
Author Organization [facility], Address [address] [place] [address] Phone Care Team Providers Care Vacuum Metalizer Operator Name Role Phone Cynthia Romo Sherrie SMITH [...] age to complete this topic Insurance Medicare [facility] Care Teams Vacuum Metalizer Operator Relationship Specialty Start Date End Date Cynthia Romo PA-C [address] [place] [address] PCP - General Physician Shipping Technician 04/25/21
--- OUTSIDE RECORDS SUMMARY | 2025-03-16 09:53 | XMS_ITS | Clinical Summary ---
Author Organization [address] [place] [address] [place] [phone] Phone Care Team Providers Care Human Resources Talent Manager Name Role Phone Adriana Lin MD Primary [...] (two) times a day. 60 each 3 Active Active Problems Problem Noted Date Diagnosed Date Sick sinus syndrome (CMS/HCC V24, CMS/HCC V28) 0 01/30/2022 Temporal arteritis ([facility] V24, [facility] V28) Acute pericarditis 07/25/2020 Bradycardia 07/25/2020 Essential hypertension 07/25/2020 PAF (paroxysmal atrial fibri llation) ([facility] V24, [facility] V28) 07/25/2020 Encounters Date Type Department Care Team Description 02/08/2025 Telephone [facility] [address] [place] [phone] Rolan Palomino MD 01/26/2025 12:25 PM EDT Ancillary Procedure [facility] [address] [place] [phone] from Last 3 Months Social History Tobacco Use Types Packs/Day Years Used Date Smoking Tobacco: Former Cigarettes Q uit: 07/25/1990 Smokeless Tobacco: Never Tobacco Cessation:Counseling Given: Not Answered Alcohol Use Standard Drinks/Week Comments Yes 1 (1 standard drink = 0.6 oz pur e alcohol) Comments Unknown Sex and Gender Information Value Date Recorded Sex Assigned at Not on file Legal Sex Female 8:27 PM EST Gender Identity Not on file Sexual Orientation Not on file Obstetrics History Last Filed Vital Signs Vital Sign Reading Time Taken Comments Blood Pressure 100/60 11/23/2024 11:05 AM EDT Pulse 60 11/23/2024 11:05 AM EDT Temperature - - Respiratory Rate - - Oxygen Saturation 98% 11/23/2024 11:05 AM EDT Inhaled Oxygen Concentration - - Weight 54.9 kg (121 lb) 11/23/2024 11:05 AM EDT Height 162.6 cm (5' 4 ) 11/23/2024 11:05 AM EDT Body Mass Index 20.77 11/23/2024 11:05 AM EDT Plan of Treatment Upcoming Encounters Date Type Department Care Team (Late st Contact Info) Description 10/21/2025 1:30 PM EDT Ancillary Procedure [facility] [address] [place] [phone] Health Maintenance Due Date Last Done Comments Cholesterol Screening (Lipid Panel) 07/21/2022 05/23/2007, 04/19/2006, 03/01/2005, Additional history exists Falls Risk Assessment 07/21/2022 Hepatitis C Screening 07/21/2022 Osteoporosis Screening (Bone Density Screening) 07/21/2022 Social Influencers of Health Screening 07/21/2022 Medicare Annual Wellness Visit 06/05/2024 06/05/2023 Depression Screening 08/12/2024 COVID-19 Vaccine (8 - Pfizer risk season) 2024 05/02/2024, 05/17/2023, 12/27/2022, Additional history exists Influenza Vaccine (#1) 2025 , 06/04/2022, 07/28/2021, Additional history exists Hypertension/CHF/CAD Annual BMP Blood Test 05/11/2025 05/11/2024, 05/16/2009, 10/25/2008, Additional history exists DTaP,Tdap,and Td Vaccines (3 - Td or Tdap) 09/19/2031 09/19/2021, 10/24/2011 Hepatitis A Vaccines Aged Out 08/06/2013, 09/24/19 13 No longer eligible based on patient's age to complete this topic Zoster Vaccines Completed 08/16/2020, 05/13, 05/16/2020 Pneumococcal Vaccine: 50+ Years Completed 09/25/2021, 11/24/2018 RSV Immunization Adult Patients Completed 08/07/2023 HIB Vaccines Aged Out No longer eligi [...] age to complete this topic Meningococcal B Vaccine Aged Out No l onger eligible based on patient's age to complete this topic RSV Immunization Patients Under 20 months Aged Out No longer eligible based on patient's age to complete this topic Varicella Vaccines Aged Out No longer eligible based on patient's age to complete this topic Medical Devices Implanted Type Area Bunk House Worker Device Identifier Shelf Expiration Date Model / Serial / Lot Andry-Junaid 2272 Assrosy Mri(Tm) [id number] Implanted: by Tomas Ornelas MD (Quantity not on file) Cardiac Pacemaker Left: Chest [facility] [employer] 2272 ASSURITY MRI(TM) / [id number] / Andry-Junaid Peters Mri [id number] Implanted: (Quantity not on file) Cardiac Pacemaker [facility] [employer] [employer] MRI 2272 / [id number] / Procedures Procedure Name Priority Date/Time Associated Diagnosis Comments CARDIAC DEVICE CHECK- REMOTE- MURJ Routine 01/26/2025 12:24 PM EDT ANNUAL BMP BLOOD TEST Routine 05/11/2024 from Last 3 Months or Most Recently Relevant to Health Maintenance Results * Cardiac device check - Remote- MURJ (01/26/2025 12:24 PM EDT) Date Time Interrogation Session [id number] CV DEVICE CHECK Type Interrogation Session Remote Scheduled CV DEVICE CHECK Implantable Pulse Generator Bunk House Worker [employer] CV DEVICE CHECK Implantable Pulse Generator Type IPG CV DEVICE CHECK Implantable Pulse Generator Model 2272 [facility] MRI(TM) CV DEVICE CHECK Implantable Pulse Generator Serial Number [id number] CV DEVICE CHECK Implantable Pulse Generator Implant Date 20190831 CV DEVICE CHECK Battery Remaining Percentage 41.00 CV DEVICE CHECK Battery Remaining Longevity 47.0 CV DEVICE CHECK Battery Voltage 2.960 CV D EVICE CHECK Battery SMOG TECHNICIAN Trigger 2.600 CV DEVICE CHECK Battery Status Middle of Service CV DEVICE CHECK Epifanio Statistic RA Percent Paced 84.00 CV DEVICE CHECK Epifanio Statistic RV Percent Paced 27.00 CV DEVICE CHECK Atrial Tachy Statistic AT/AF [place] Percent 1.00 CV DEVICE CHECK Lead Channel Sensing Intrinsic Amplitude 0.700 CV DEVICE CHECK Lead Channel Setting Sensing Sensitivity 0.30 CV DEVICE CHECK Lead Channel Impedance Value 430 CV DEVICE CHECK Lead Channel Pacing Threshold Amplitude 0.500 CV DEVICE CHECK Lead Channel Pacing Threshold Pulse Width 0.5 CV DEVICE CHECK Lead Channel RA Pacing Threshold Date 2025-01-19 CV DEVICE CHECK Lead Channel Setting Pacing Amplitude 1.500 CV DEVICE CHECK Lead Channel Setting Pacing Pulse Width 0.5 CV DEVICE CHECK Lead Channel Sensing Intrinsic Amplitude 8.200 CV DEVICE CHECK Lead Channel Setting Sensing Sensitivity 0.50 CV DEVICE CHECK Lead Channel Impedance Value 480 CV DEVICE CHECK Lead Channel Pacing Threshold Amplitude 1.375 CV DEVICE CHECK Lead Channel Pacing Threshold Pulse Width 0.5 CV DEVICE CHECK Lead Channel RV Pacing Threshold Date 2025-01-19 CV DEVICE CHECK Lead Channel Setting Pacing Amplitude 1.625 CV DEVICE CHECK Lead Channel Setting Pacing [...] 180 CV DEVICE CHECK Date of Service 2025-02-02 CV DEVICE CHECK Anatomical Region Laterality Modality Device Interroga tion 01/19/2025 2:39 AM EDT Impressions 01/26/2025 10:25 AM EDT Pacemaker Mediated Tachycardia (PMT) * Stored EGMs are consistent with or suggestive of Pacemaker Mediated Tachycardia * Total episodes: 15 * Stored EGMs reviewed Normal Remote: No Events * Normal Device Function * Alerts or events: None * Battery: Battery is at 41%, 3.92 yrs * Sensing, impedance and thresholds reviewed * Programmed parameters reviewed * Presenting rhythm reviewed * Heart Rate Histograms reviewed * No significant changes noted Narrative Procedure Note Tomas Ornelas MD - 01/26/2025 IMPRESSION: Pacemaker Mediated Tachycardia (PMT) * Stored EGMs are consistent with or suggestive of Pacemaker MediatedTachycardia * Total episodes: 15 * Stored EGMs reviewed Normal Remote: No Events * Normal Device Function * Alerts or events: None * Battery: Battery is at 41%, 3.92 yrs * Sensing, impedance and thresholds reviewed * Programmed parameters reviewed * Presenting rhythm reviewed * Heart Rate Histograms reviewed * No significant changes noted Tomas Ornelas MD CV IMPLANTABLE CARDIAC DEVICE PROCEDURES Final Result * Annual BMP Blood Test (05/11/2024) Annual BMP Blood Test Abstracted Historical Provider HEALTH MAINTENANCE Final Result from Last 3 Months or Most Recently Relevant to Health Maintenance Insurance MEDICARE [facility] Care Teams Human Resources Talent Manager Relationship Specialty Start Date End Date Adriana Lin MD [address] [place] [phone] PCP - General 07/01/20
== END 2025-03-16 09:29 | disposition home or self-care (01) ==
LOC: HO.MAMMO 09:28
PROVIDERS: PCP Physician Assistant Medical; Visit Provider Internal Medicine Rheumatology
DX: M81.0 Age-related osteoporosis without current pathological fracture (principal)
CPT/HCPCS: 77080

== ENCOUNTER → 2025-03-16 10:00 | Outpatient (BNV) | payer MEDICARE, BC, SELFPAY | PROVIDERS: PCP Physician Assistant Medical; Visit Provider Radiology Diagnostic Radiology | DX: E28.39 Other primary ovarian failure (principal) | CPT/HCPCS: 77080 ==

== ENCOUNTER 2025-05-12 08:11 | Outpatient (REF) | payer MEDICARE, BC, SELFPAY ==
[2025-05-12 13:11] LABS: Hematocrit 36.1 % (37.0-47.0); Hemoglobin 11.4 g/dl (12.0-16.0); Imm Gran Abs Auto 0.08 X10*3/uL (0.00-0.03); Imm Gran Pct Auto 0.5 % (0.0-0.4); Lymphocytes Absolute Auto 0.8 X10*3/uL (1.2-4.9); MANUAL DIFF FLAG SCAN; Mean Corpuscular HGB Conc 31.6 g/dl (31.0-35.0); Mean Corpuscular Hemoglobin 28.5 pg (27.0-33.0); Mean Corpuscular Volume 90.3 fL (80.0-98.0); NRBC Abs Auto 0.000 X10*3/uL (0.0-0.012); NRBC Pct Auto 0.0 /100WBC (0.0-0.2); Platelet Count 268 X10*3/uL (160-400); Red Blood Count 4.00 X10*6/uL (4.20-5.50); SCAN SMEAR FLAG 1; White Blood Count 15.0 X10*3/uL (4.8-10.8)
[2025-05-12 13:25] LABS: Alanine Aminotransferase 17 U/L (0-31); Aspartate Amino Transferase 19 U/L (5-31); Estimated Glomerular Filt Rate 57
== END 2025-05-12 08:12 | disposition home or self-care (01) ==
LOC: HO.HKASLDS 08:11
PROVIDERS: PCP Physician Assistant Medical; Visit Provider Internal Medicine Rheumatology
DX: M31.6 Other giant cell arteritis (principal); M80.00XD Age-related osteoporosis with current pathological fracture, unspecified site, subsequent encounter for fracture with routine healing; G62.9 Polyneuropathy, unspecified; Z79.52 Long term (current) use of systemic steroids; Z79.899 Other long term (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 therapy
CPT/HCPCS: 36415; 82565; 84450; 84460; 85025; 85652; 86140; 99212

== ENCOUNTER 2025-05-12 08:11 | Outpatient (AMB) | payer MEDICARE, BC, SELFPAY ==
--- OUTSIDE RECORDS SUMMARY | 2025-05-11 14:30 | XMS_ITS | Encounter Summary ---
Author Organization [facility] Address [address] [place] [address] Care Team Providers Care Compliance Representative Dealer Name Role Phone Adriana Lin MD Primary Care Provider [phone] Encounter Details Date Type Department Care Team (Late st Contact Info) Description 05/11/2025 2:30 PM EDT Ancillary Procedure [facility] [address] [facility] [address] [place] [phone] Arrived Social History Tobacco Use Types Packs/Day [...] Description 10/21/2025 1:30 PM EDT Ancillary Procedure [facility] [address] [facility] [address] [place] [phone] documented as of this encounter Procedures Procedure Name Priority Date/Time Associated Diagnosis Comments CARDIAC DEVICE CHECK- REMOTE- MURJ Routine 05/11/2025 2:26 PM EDT documented in this encounter Results * Cardiac device check - Remote- MURJ (05/11/2025 2:26 PM EDT) Date Time Interrogation Session [id number] CV DEVICE CHECK Type Interrogation Session Remote Scheduled CV DEVICE CHECK Implantable Pulse Generator 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 [employer] CV DEVICE CHECK Implantable Pulse Generator Type IPG CV DEVICE CHECK Implantable Pulse Generator Model 2272 [employer] MRI(TM) CV DEVICE CHECK Implantable Pulse Generator Serial Number [id number] CV DEVICE CHECK Implantable Pulse Generator Implant Date [id number] CV DEVICE CHECK Battery Remaining Percentage 39.00 CV DEVICE CHECK Battery Remaining Longevity 49.0 CV DEVICE CHECK Battery Voltage 2.980 CV D EVICE CHECK Battery GAS METER REPAIRER Trigger 2.600 CV DEVICE CHECK Battery Status Middle of Service CV DEVICE CHECK Epifanio Statistic RA Percent Paced 49.00 CV DEVICE CHECK Epifanio Statistic RV Percent Paced 1.00 CV DEVICE CHECK Atrial Tachy Statistic AT/AF [place] Percent 0.00 CV DEVICE CHECK Lead Channel Sensing Intrinsic Amplitude 0.600 CV DEVICE CHECK Lead Channel Setting Sensing Sensitivity 0.30 CV DEVICE CHECK Lead Channel Impedance Value 430 CV DEVICE CHECK Lead Channel Pacing Threshold Amplitude 0.500 CV DEVICE CHECK Lead Channel Pacing Threshold Pulse Width 0.5 CV DEVICE CHECK Lead Channel RA Pacing Threshold Date 2025-04-20 CV DEVICE CHECK Lead Channel Setting Pacing Amplitude 1.500 CV DEVICE CHECK Lead Channel Setting Pacing Pulse Width 0.5 CV DEVICE CHECK Lead Channel Sensing Intrinsic Amplitude 7.600 CV DEVICE CHECK Lead Channel Setting Sensing Sensitivity 0.50 CV DEVICE CHECK Lead Channel Impedance Value 440 CV DEVICE CHECK Lead Channel Pacing Threshold Amplitude 0.875 CV DEVICE CHECK Lead Channel Pacing Threshold Pulse Width 0.5 CV DEVICE CHECK Lead Channel RV Pacing Threshold Date 2025-04-20 CV DEVICE CHECK Lead Channel Setting Pacing Amplitude 1.125 CV DEVICE CHECK Lead Channel Setting Pacing [...] 180 CV DEVICE CHECK Date of Service 2025-05-11 CV DEVICE CHECK Anatomical Region Laterality Modality Device Interroga tion 04/20/2025 2:00 AM EDT Impressions 05/11/2025 12:25 PM EDT Normal Remote: No Events * Normal Device Function * Alerts or events: None * Battery: Battery is at 39%, 4.08 yrs * Sensing, impedance and thresholds reviewed * Programmed parameters reviewed * Presenting rhythm reviewed * Heart Rate Histograms reviewed * No significant changes noted Narrative Procedure Note Tomas Ornelas MD - 05/11/2025 IMPRESSION: Normal Remote: No Events * Normal Device Function * Alerts or events: None * Battery: Battery is at 39%, 4.08 yrs * Sensing, impedance and thresholds reviewed * Programmed parameters reviewed * Presenting rhythm reviewed * Heart Rate Histograms reviewed * No significant changes noted Tomas Ornelas MD CV IMPLANTABLE CARDIAC DEVICE PROCEDURES Final Result documented in this encounter Visit Diagnoses Not on filedocumented in this encounter Care Teams Compliance Representative Dealer Relationship Specialty Start Date End Date Adriana Lin MD [address] [place] [phone] PCP - General 07/01/20 documented as of this encounter
--- NOTE | 2025-05-12 08:24 | MHC.OFFVIS ---
Vital Signs 05/12/25 08:25 BP 120/80 Blood Pressure Location Rt brachial Position Sitting Pulse 68 Pulse Source Pulse Oximeter Pulse Oximetry (%) 98 Oxygen Delivery Method Room Air Intake Visit Reasons: 2 months Intake Note: Patient present today for [facility] office visit. Accompanied by: Self / Same As Patient Allergies erythromycin base Adverse Reaction (Unknown, Verified 05/12/25 08:24) Skin Rashes, Eruption of skin HPI HPI 2 months: Details: She was diagnosed with TOBACCO DIPPER lyme at [facility] [place] [place] treated with IV abx then completed course with doxycycline. She had recurrent headaches. In rehab inflammatory markers were checked, which revealed ESR elevation at 23 mm/hr with normal CRP. She was given prednisone 10 mg and then inflammatory markers were rechecked and continued to be elevated. She had on and off headaches. She does not have jaw claudication or scalp tenderness or vision loss. 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 Gabapentin has helped. Prednisone was then increased to 20 mg daily 04/28 after speaking with physician at her rehab. She is experiencing hair loss since being on higher dose of prednisone. She has not had headaches since May 01. She took 1 dose of Rinvoq and then discontinued it. She was taking multiple medications at the same time. She continues to take calcium, vitamin-D and omeprazole daily. She has bruising. She uses a wheelchair to ambulate. She is able to get up but is unbalanced. She has home PT 3 times a week. She requires assistance with transportation. [facility] Medical History (Updated 05/12/25 @ 09:23 by Babar Mcbride MD) Lyme disease Atrial fibrillation History of biopsy Pericarditis Pacemaker Osteoporosis Heart disease Surgical History History of colonoscopy Family History Mother Lung cancer Breast cancer Osteoporosis Father Heart disease Social History Alcohol intake: current Alcohol type: wine Comment: 3 x week Patient Tobacco Use Status: Former Tobacco user Substance Use Type: Marijuana Physical Exam Vital Signs: Last Vital Signs Pulse 68 05/12/25 08:25 BP 120/80 05/12/25 08:25 Pulse Ox 98 05/12/25 08:25 Oxygen Delivery Method Room Air 05/12/25 08:25 Const Other: General: Comfortable CVS: RRR Respiratory: clear to auscultation bilaterally. Good respiratory effort Skin: Bruising on arms MSK: No tenderness of scalp/temporal region. [place] nodes present. Normal range of motion of upper extremities and knee flexion. + 2 radial pulse bilaterally. No synovitis. Results Reviewed Results Reviewed: ESR 28 mm/hr, CRP 0.9mg/L Bone density 03/16/2025 FINDINGS: The bone mineral density of the lumbar spine is 0.991 g/cm2, corresponding to a T-score of -1.4, and a Z-score of 0.7. This is indicative of osteopenia. The bone mineral density of the left total hip is 0.703 g/cm2, corresponding to a T-score of -2.4, and a Z-score of -0.2. This is indicative of osteopenia. The bone mineral density of the left femoral neck is 0.678 g/cm2, corresponding to a T-score of -2.6, and a Z-score of -0.2. This is indicative of osteoporosis. FRACTURE RISK: The FRAX index suggests a risk of major osteoporotic fracture of 25.9%, and of hip fracture 11.0%. 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 She presented with recurrent headaches and elevated ESR. Headaches have resolved on moderate dose prednisone 20 mg daily since May 01. She has experienced toxicities on prednisone with hair loss, easily bruising and weight gain in the past. We discussed the importance of steroid sparing agent Rinvoq with evidence supporting benefit with preventing relapsed disease while prednisone is being tapered and reducing risk of toxicities related to long-term prednisone use. Patient agrees with plan. Rheumatology history: Biopsy confirmed GCA 11/2021. She has had recurrent relapses on prednisone. Initial relapses involved recurrent headaches. 2023 she has had recurrent relapses due to scalp tenderness. Actemra 08/2022-. During the last 2 years she has had recurrent episodes of scalp tenderness, responding to temporary increases in prednisone. Inflammatory markers have remained normal. TOBACCO DIPPER Lyme diagnosed 02/2025 after admission at [facility] presenting with cranial GCA symptoms, diffuse pain, neuropathy in extremities and loss of function. She had relapsed of GCA with elevated ESR and headache 04/2025 responding to prednisone 20 mg daily. Code(s): M31.6 - Other giant cell arteritis Category: Medical Plan: MRI brain on 06/08/25 @ 11:30 am and MRI chest on 06/22/25 @ 8:00 am to evaluate for large vessel vasculitis. Pt is on cancellation list. Restart Rasuvo 15mg daily She will continue prednisone 15 mg daily until lab results are back. If inflammatory markers normalize, I will be able to taper prednisone slowly Continue calcium and vitamin-D supplement Continue omeprazole 20 mg daily. 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 Fosamax [phone]. High risk for future fracture. Evenity 11/2023-10/2024 eight doses total. She had Evenity 7th dose 05/2024 [facility] Evenity 8th dose 10/22/2024 caused side effect intense polyarthralgias. She had bone density 03/16/2025 which reveal lowest T-score -2.6 left femoral neck in osteoporotic range. Code(s): M81.0 - Age-related osteoporosis without current pathological fracture Category: Medical Qualifiers: Encounter type: subsequent encounter Fracture healing: with routine healing Osteoporosis type: age-related Presence of current pathological fracture: with current pathological fracture Qualified Code(s): M80.00XD - Age-related osteoporosis with current pathological fracture, unspecified site, subsequent encounter for fracture with routine healing Plan: Last DXA 02/2022. 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 C Reactive Protein Today Z79.899 - Other halfway (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 therapy Aspartate Amino Transferase 1 Month Z79.899 - Other halfway (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 therapy C Reactive Protein 1 Month Z79.899 - Other 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 Complete Blood Count Auto Diff Today Z79.899 - Other halfway (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 therapy Creatinine Today Z79.899 - Other 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 Erythrocyte Sedimentation Rate Today Z79.899 - Other 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 Complete Blood Count Auto Diff 1 Month Z79.899 - Other 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 Alanine Aminotransferase 1 Month Z79.899 - Other 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 Creatinine 1 Month Z79.899 - Other halfway (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 therapy Erythrocyte Sedimentation Rate 1 Month Z79.899 - Other 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
[2025-05-12 08:25] VITALS: BP 120/80; PULSE 68; O2SAT 98
--- OUTSIDE RECORDS SUMMARY | 2025-05-12 08:27 | XMS_ITS | Encounter Summary ---
Author Organization [facility] Address [address] [place] [address] Phone Care Team Providers Care Manager Chinese Name Role Phone Emory Posey MD Unavailable [phone] Abram Mcallister MD Unavailable Breanna Garcia MD Unavailable [phone] Cynthia Romo Primary Care Provider + [phone] Encounter Details Date Type Department Care Team (Late st Contact Info) Description 12/14/2020 Procedure Pass [facility] Endoscopy Admitting Dept Virtual Department 30 [place] [address] Social History Tobacco Use Types Packs/Day Years Used Date Smoking Tobacco: Former Cigarettes Q uit: 1972 Smokeless Tobacco: Never Comments:30 Alcohol Use Standard Drinks/Week Comments Yes 7 (1 standard drink = 0.6 oz pur e alcohol) 1 glasses of wine daily Comments No Sex and Gender Information Value Date Recorded Sex Assigned at Female 10/26/2018 7:35 AM EDT Legal Sex Female 10:08 PM EDT Gender Identity Female 10/26/2018 7:35 AM EDT Sexual Orientation Lesbian or Maloney 10/26/2018 7: 35 AM EDT 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 Not on file Not on joceline e Not on file documented as of this encounter Plan of Treatment Not on file documented as of this encounter Visit Diagnoses Not on filedocumented in this encounter Additional Health Concerns Infection Onset Date Last Indicated Resolved Time CoV-Risk 05/11/2024 05/11/2024 05/22/2024 1:22 AM EDT documented as of this encounter Care Teams Manager Chinese Relationship Specialty Start Date End Date Cynthia Romo PA [address] [place] [address] PCP - General Damage Appraiser 10/26/18 Emory Posey MD [address] [facility] [place] [address] Historical LMR Provider 05/27/17 2 Abram Mcallister MD [address] [place] [address] [email or web address] Historical LMR Provider 05/27/17 08/19/21 Breanna Garcia MD [address] [place] [address] [email or web address] Historical LMR Provider 05/27/17 08/19/21 documented as of this encounter Additional Source Comments The information contained in this document represents components of the legal health record. It is not the complete legal health record.[facility]
--- OUTSIDE RECORDS SUMMARY | 2025-05-12 08:27 | XMS_ITS | Encounter Summary ---
Author Organization [facility] Address [address] [place] [address] Phone Care Team Providers Care Branch Customer Service Representative Name Role Phone Emory Posey MD Unavailable [phone] Abram Mcallister MD Unavailable Breanna Garcia MD Unavailable [phone] Cynthia Romo Primary Care Provider + [phone] Encounter Details Date Type Department Care Team (Late st Contact Info) Description 09/21/2019 Ancillary Orders Non-Invasive Cardiology [address] [place] [address] Emmett Alfredo MD [address] [place] [address] [email or web address] Sick sinus syndrome Social History Tobacco Use [...] Job Start Date Job End Date 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 Not on file Not on joceline e [...] documented as of this encounter Care Teams Branch Customer Service Representative Relationship Specialty Start Date End Date Cynthia Romo PA [address] [place] [address] PCP - General Dental Assistant Teacher 10/26/18 Emory Posey MD [address] [place] [address] [place] [address] Historical LMR Provider 05/27/17 2 Abram Mcallister MD [address] [place] [address] [email or web address] Historical LMR Provider 05/27/17 08/19/21 Breanna Garcia MD [address] [place] [address] Historical LMR Provider 05/27/17 08/19/21 documented as of this encounter Additional Source Comments The information contained in this document represents components of the legal health record. It is not the complete legal health record.[facility]
--- OUTSIDE RECORDS SUMMARY | 2025-05-12 08:27 | XMS_ITS | Encounter Summary ---
Author Organization [facility] Address [address] [place] [address] Phone Care Team Providers Care Occupational Therapy Aides Teacher Name Role Phone Emory Posey MD Unavailable [phone] Abram Mcallister MD Unavailable Breanna Garcia MD Unavailable [phone] Cynthia Romo Primary Care Provider Encounter Details Date Type Department Care Team (Late st Contact Info) Description 01/30/2021 Procedure Pass [facility] [address] [place] [address] Social History Tobacco Use Types Packs/Day Years [...] Job Start Date Job End Date 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 Not on file Not on joceline e Not on file documented as of this encounter Plan of Treatment Not on file documented as of this encounter Visit Diagnoses Not on filedocumented in this encounter Additional Health Concerns Infection Onset Date Last Indicated Resolved Time CoV-Risk 05/11/2024 05/11/2024 05/22/2024 1:22 AM EDT documented as of this encounter Care Teams Occupational Therapy Aides Teacher Relationship Specialty Start Date End Date Cynthia Romo PA [address] [place] [address] PCP - General Senior Designer/Art Director 10/26/18 Emory Posey MD [address] [facility] [place] [address] Historical LMR Provider 05/27/17 2 Abram Mcallister MD [address] [place] [address] [email or web address] Historical LMR Provider 05/27/17 08/19/21 Breanna Garcia MD [address] [place] [address] Historical LMR Provider 05/27/17 08/19/21 documented as of this encounter Additional Source Comments The information contained in this document represents components of the legal health record. It is not the complete legal health record.[facility]
--- OUTSIDE RECORDS SUMMARY | 2025-05-12 08:27 | XMS_ITS | Encounter Summary ---
Author Organization [facility] Address [address] [facility] [address] [place] [address] Phone Care Team Providers Care Trimming Press Operator Name Role Phone Emory Posey MD Unavailable [phone] Abram Mcallister MD Unavailable Breanna Garcia MD Unavailable [phone] Cynthia Romo Primary Care Provider [phone] Reason for Referral * Consultation (Elective) - Closed Specialty Diagnoses / Procedures Referred By Everardo t Referred To Contact Pulmonary Disease Cynthia Romo PA [address] [place] [address] Phone: tel: fax: [facility] [address] [place] [address] Phone: tel: Referral ID Status Reason Start Date Expiration Date Visits Re quested Visits Authorized [id number] Closed 03/21/2021 03/21/2022 1 1 Encounter Details Date Type Department Care Team (Late st Contact Info) Description 03/21/2021 Transcribe Orders [facility] Pulmonary, Allergy and Critical Care Medicine [address] [facility] [place] [address] Cynthia Romo PA [address] [place] [phone] Social History Tobacco Use Types Packs/Day Years [...] 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 Pulmonology Outpatient Referral Routine Ordered: 03/21/2021 documented as of this encounter Visit Diagnoses Not on filedocumented in this encounter Additional Health Concerns Infection Onset Date Last Indicated Resolved Time CoV-Risk 05/11/2024 05/11/2024 05/22/2024 1:22 AM EDT documented as of this encounter Care Teams Trimming Press Operator Relationship Specialty Start Date End Date Cynthia Romo PA [address] [place] [address] PCP - General Radio Assembler 10/26/18 Emory Posey MD [address] [place] [address] [place] [address] Historical LMR Provider 05/27/17 2 Abram Mcallister MD [address] [place] [address] 202 [place] [address] Historical LMR Provider 05/27/17 08/19/21 Breanna Garcia MD [address] [place] [address] [address] [place] [address] Historical LMR Provider 05/27/17 08/19/21 documented as of this encounter Additional Source Comments The information contained in this document represents components of the legal health record. It is not the complete legal health record.[facility]
--- OUTSIDE RECORDS SUMMARY | 2025-05-12 08:27 | XMS_ITS | Encounter Summary ---
Author Organization [facility] Address [address] [facility] [address] [place] [address] Phone Care Team Providers Care Timber Repairer Name Role Phone Emory Posey MD Unavailable [phone] Abram Mcallister MD Unavailable Breanna Garcia MD Unavailable [phone] Laura Franco NP Primary Care Provider Cynthia Romo Primary Care Provider [phone] Encounter Details Date Type Department Care Team (Late st Contact Info) Description 10/10/2017 Ancillary Orders Virtual Department 30 [place] [address] Laura Franco, ERIN [address] [place], [place] [id number] [email or web address] Breast screening Social History Tobacco Use Types Packs/Day Years Used Date Smoking Tobacco: Never Assessed Comments Unknown Sex and Gender Information Value Date Recorded Sex Assigned at Female 10/26/2018 7:35 AM EDT Legal Sex Female 10:08 PM EDT Gender Identity Female 10/26/2018 7:35 AM EDT Sexual Orientation Lesbian or Maloney 10/26/2018 7: 35 AM EDT documented as of this encounter Plan of Treatment Not on file documented as of this encounter Results * BI MAMMOGRAM SCREENING WITH TOMOSYNTHESIS WITH CAD (BILATERAL) (12/09/2017 8:44 AM EDT) Anatomical Region Laterality Modality Breast Left, Breast Right, Breast Bilateral Bila teral Mammography 12/09/2017 8:51 AM EDT Impressions 12/09/2017 8:55 AM EDT No mammographic evidence of malignancy. Recommend routine annual surveillance. BI-RADS CATEGORY: 2 - Benign finding. DENSITY: The breast tissue is heterogeneously dense, an appearance which lowers the sensitivity of mammography. POS - CDHMAMA Narrative 12/09/2017 8:55 AM EDT 72-year-old female with no current breast symptoms. Comparison made to previous on 11/21/2016 and as far back as 06/07/2011. Interpretation made in conjunction with computer-aided detection and tomosynthesis. The breasts are heterogeneously dense, which may obscure small masses. Stable post-surgical changes. There are no suspicious masses, areas of architectural distortion, or suspicious clusters of microcalcifications. Procedure Note Jaron Rebollar MD - 12/09/2017 72-year-old female with no current breast symptoms. Comparison made toprevious on 11/21/2016 and as far back as 06/07/2011. Interpretation madein conjunction with computer-aided detection and tomosynthesis. The breasts are heterogeneously dense, which may obscure small masses.Stable post-surgical changes. There are no suspicious masses, areas of architectural distortion, orsuspicious clusters of microcalcifications. IMPRESSION: No mammographic evidence of malignancy. Recommend routine annualsurveillance. BI-RADS CATEGORY: 2 - Benign finding. DENSITY: The breast tissue is heterogeneously dense, an appearance whichlowers the sensitivity of mammography. POS - CDHMAMA Laura Franco NP IMG MG EXAMS Final R esult documented in this encounter Visit Diagnoses Diagnosis Breast screening Breast screening, unspecified Breast screening Breast screening, unspecified documented in this encounter Additional Health Concerns Infection Onset Date Last Indicated Resolved Time CoV-Risk Comment:COVID-19 test pending 11/25/2019 11/25/2019 12/09/2019 1:23 AM EDT CoV-Risk 05/11/2024 05/11/2024 05/22/2024 1:22 AM EDT documented as of this encounter Care Teams Timber Repairer Relationship Specialty Start Date End Date Laura Franco, ERIN [address] [place] [address] [email or web address] PCP - General Family Medicine 10/10/17 10/25/18 Cynthia Romo PA [address] [place] [address] PCP - General Orthodontic Lab Technician 10/26/18 Emroy Posey MD [address] [place] [address] [place] [address] Historical LMR Provider 05/27/17 2 Abram Mcallister MD [address] [place] [address], [address] [place] [address] [email or web address] Historical LMR Provider 05/27/17 08/19/21 Breanna Garcia MD [address] [place] [address] [address] [place] [address] Historical LMR Provider 05/27/17 08/19/21 documented as of this encounter Additional Source Comments The information contained in this document represents components of the legal health record. It is not the complete legal health record.[facility]
--- OUTSIDE RECORDS SUMMARY | 2025-05-12 08:27 | XMS_ITS | Encounter Summary ---
Author Organization [facility] Address [address] [facility] [address] [place] [address] Phone Care Team Providers Care Explosives Operator Name Role Phone Emory Posey MD Unavailable [phone] Abram Mcallister MD Unavailable Breanna Garcia MD Unavailable [phone] Cynthia Romo Primary Care Provider Encounter Details Date Type Department Care Team (Late st Contact Info) Description 11/27/2018 Ancillary Orders Virtual Department [address] [place], [place] [id number] Cynthia Romo PA [address] [place] [address] [place] [id number] Breast screening Social History Tobacco Use Types Packs/Day Years Used Date Smoking Tobacco: Never Smokeless Tobacco: Never Alcohol Use Standard Drinks/Week Comments Yes 0 (1 standard drink = 0.6 oz pur e alcohol) 2 glasses of wine daily Comments No Sex [...] MAMMOGRAM SCREENING WITH TOMOSYNTHESIS WITH CAD (BILATERAL) (12/16/2018 1:31 PM EDT) Anatomical Region Laterality Modality Breast Left, Breast Right, Breast Bilateral Bila teral Mammography 12/16/2018 2:27 PM EDT Impressions 12/16/2018 2:30 PM EDT No mammographic evidence of malignancy. Recommend routine annual surveillance. BI-RADS CATEGORY: 2 - Benign finding. DENSITY: The breast tissue is heterogeneously dense, an appearance which lowers the sensitivity of mammography. POS - [id number] Narrative 12/16/2018 2:30 PM EDT Lfhllfo-ljagl-onpw-old female with no current breast symptoms. Comparison made to previous on 12/09/2017 and as far back as 10/17/2012. Interpretation made in conjunction with computer-aided detection and tomosynthesis. The breasts are heterogeneously dense, which may obscure small masses. Stable post-surgical changes and lobular dense breast tissue. There are no suspicious masses, areas of architectural distortion, or suspicious clusters of microcalcifications. Procedure Note Jaron Rebollar MD - 12/16/2018 Invzdme-ctvaz-vrld-old female with no current breast symptoms. Comparisonmade to previous on 12/09/2017 and as far back as 10/17/2012.Interpretation made in conjunction with computer-aided detection andtomosynthesis. The breasts are heterogeneously dense, which may obscure small masses.Stable post-surgical changes and lobular dense breast tissue. There are no suspicious masses, areas of architectural distortion, orsuspicious clusters of microcalcifications. IMPRESSION: No mammographic evidence of malignancy. Recommend routine annualsurveillance. BI-RADS CATEGORY: 2 - Benign finding. DENSITY: The breast tissue is heterogeneously dense, an appearance whichlowers the sensitivity of mammography. POS - [id number] Cynthia CROUCH IMG MG EXAMS Final Resu lt documented in this encounter Visit Diagnoses Diagnosis Breast screening Breast screening, unspecified Breast screening Breast screening, unspecified documented in this encounter Additional Health Concerns Infection Onset Date Last Indicated Resolved Time CoV-Risk Comment:COVID-19 test pending 11/25/2019 11/25/2019 12/09/2019 1:23 AM EDT CoV-Risk 05/11/2024 05/11/2024 05/22/2024 1:22 AM EDT documented as of this encounter Care Teams Explosives Operator Relationship Specialty Start Date End Date Cynthia Romo PA [address] [place] [address] PCP - General Social Work Faculty Member 10/26/18 Emory Posey MD [address] [facility] [place] [address] Historical LMR Provider 05/27/17 2 Abram Mcallister MD [address] [place] [address] [email or web address] Historical LMR Provider 05/27/17 08/19/21 Breanna Garcia MD [address] [place] [address] Historical LMR Provider 05/27/17 08/19/21 documented as of this encounter Additional Source Comments The information contained in this document represents components of the legal health record. It is not the complete legal health record.[facility]
--- OUTSIDE RECORDS SUMMARY | 2025-05-12 08:27 | XMS_ITS | Encounter Summary ---
Author Organization [facility] Address [address] [place] [address] Phone Care Team Providers Care Fireboat Operator Name Role Phone Emory Posey MD Unavailable [phone] Abram Mcallister MD Unavailable Breanna Garcia MD Unavailable [phone] Cynthia Romo Primary Care Provider + [phone] Encounter Details Date Type Department Care Team (Late st Contact Info) Description 01/30/2021 Ancillary Orders Virtual Department [address] [place], [place] [phone] Cynthia Romo PA [address] [place] [phone] Breast screening Social History Tobacco Use Types [...] Job 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 Normal interval follow-up is recommended in 12 months. Bi-RADS: BI-RADS CATEGORY: 2 - Benign finding. DENSITY: The breast tissue is heterogeneously dense, which could obscure a lesion on mammography. Narrative 05/08/2021 12:33 PM EDT STUDY: Bilateral screening mammography with tomosynthesis and CAD TECHNIQUE: Bilateral full-field digital screening mammography is obtained and read in conjunction with computer-aided detection. Tomosynthesis as well as 2-D C view imaging were obtained. COMPARISON: Comparison made to multiple prior, most recent April 29, 2020, and most remote November 15, 2014. BREAST COMPOSITION: The breast tissue is heterogeneously dense, which may obscure small masses. RIGHT BREAST: History of previous biopsy. No significant masses, suspicious calcifications or other abnormalities are seen. LEFT BREAST: History of previous excisional biopsy. No significant masses, suspicious calcifications or other abnormalities are seen. Procedure Note Fouzia Ragsdale MD - 05/08/2021 STUDY: Bilateral screening mammography with tomosynthesis and CAD TECHNIQUE: Bilateral full-field digital screening mammography is obtainedand read in conjunction with computer-aided detection. Tomosynthesis aswell as 2-D C view imaging were obtained. COMPARISON: Comparison made to multiple prior, most recent April, and most remote November 15, 2014. BREAST COMPOSITION: The breast tissue is heterogeneously dense, which mayobscure small masses. RIGHT BREAST: History of previous biopsy. No significant masses,suspicious calcifications or other abnormalities are seen. LEFT BREAST: History of previous excisional biopsy. No significantmasses, suspicious calcifications or other abnormalities are seen. IMPRESSION: BILATERAL BREASTS: Benign, no evidence of malignancy. Normal intervalfollow-up is recommended in 12 months. Bi-RADS: BI-RADS CATEGORY: 2 - Benign finding. DENSITY: The breast tissue is heterogeneously dense, which could obscurea lesion on mammography. Cynthia CROUCH IMG MG EXAMS Final Resu lt documented in this encounter Visit Diagnoses Diagnosis Breast screening Breast screening, unspecified Breast screening Breast screening, unspecified documented in this encounter Additional Health Concerns Infection Onset Date Last Indicated Resolved Time CoV-Risk 05/11/2024 05/11/2024 05/22/2024 1:22 AM EDT documented as of this encounter Care Teams Fireboat Operator Relationship Specialty Start Date End Date Cynthia Romo PA [address] [place] [address] PCP - General Quenching Car Operator 10/26/18 Emory Posey MD [address] [facility] [place] [address] Historical LMR Provider 05/27/17 2 Abram Mcallister MD [address] [place] [address] [email or web address] Historical LMR Provider 05/27/17 08/19/21 Breanna Garcia MD [address] [place] [address] Historical LMR Provider 05/27/17 08/19/21 documented as of this encounter Additional Source Comments The information contained in this document represents components of the legal health record. It is not the complete legal health record.[facility]
--- OUTSIDE RECORDS SUMMARY | 2025-05-12 08:27 | XMS_ITS | Encounter Summary ---
Author Organization [facility] Address [address] [place] [address] Phone Care Team Providers Care Retail And Restaurant Associate Name Role Phone Emory Posey MD Unavailable [phone] Abram Mcallister MD Unavailable Breanna Garcia MD Unavailable [phone] Cynthia Romo Primary Care Provider Encounter Details Date Type Department Care Team (Late st Contact Info) Description 03/22/2020 Ancillary Orders Virtual Department [address] [place] [address] Cynthia Romo PA [address] [place] [id number] Breast screening Social History Tobacco Use Types [...] 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 Normal interval follow-up is recommended in 12 months. BI-RADS: BI-RADS CATEGORY: 2 - Benign finding. DENSITY: The breast tissue is heterogeneously dense, which may obscure small masses Narrative 04/29/2020 7:13 PM EDT STUDY: Bilateral screening mammography with tomosynthesis and CAD TECHNIQUE: Bilateral full-field digital screening mammography is obtained and read in conjunction with computer-aided detection. Tomosynthesis as well as 2-D C view imaging were obtained. COMPARISON: Comparison made to multiple prior, most recent December 16, 2018, and most remote October 28, 2013. BREAST COMPOSITION: The breasts are heterogeneously dense, which may obscure small masses. RIGHT BREAST: History of previous biopsy. No significant masses, calcifications or other abnormalities are seen. LEFT BREAST: History of previous excisional biopsy. No significant masses, calcifications or other abnormalities are seen. Cynthia CROUCH IMG MG EXAMS Final Resu lt documented in this encounter Visit Diagnoses Diagnosis Breast screening Breast screening, unspecified Breast screening Breast screening, unspecified documented in this encounter Additional Health Concerns Infection Onset Date Last Indicated Resolved Time CoV-Risk 05/11/2024 05/11/2024 05/22/2024 1:22 AM EDT documented as of this encounter Care Teams Retail And Restaurant Associate Relationship Specialty Start Date End Date Cynthia Romo PA [address] [place] [id number] PCP - General Director Volunteer Services 10/26/18 Emory Posey MD [address] [place] [address] Historical LMR Provider 05/27/17 2 Abram Mcallister MD [address] [place] [address] [address] [place] [address] [email or web address] Historical LMR Provider 05/27/17 08/19/21 Breanna Garcia MD [address] [place] [address] [address] [place] [address] [email or web address] Historical LMR Provider 05/27/17 08/19/21 documented as of this encounter Additional Source Comments The information contained in this document represents components of the legal health record. It is not the complete legal health record.[facility]
--- OUTSIDE RECORDS SUMMARY | 2025-05-12 08:27 | XMS_ITS | Encounter Summary ---
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 Date 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 file Not on joceline e Not on file documented as of this encounter Plan of Treatment Not on file documented as of this encounter Visit Diagnoses Not on filedocumented in this encounter Additional Health Concerns Infection Onset Date Last Indicated Resolved Time CoV-Risk 05/11/2024 05/11/2024 05/22/2024 1:22 AM EDT documented as of this encounter Care Teams Gospel Worker Relationship Specialty Start Date End Date Cynthia Romo PA [address] [place] [id number] PCP - General Rehab Aide 10/26/18 Emory Posey MD [address] [place] [address] Historical LMR Provider 05/27/17 2 Abram Mcallister MD [address] [place] [address] [email or web address] Historical LMR Provider 05/27/17 08/19/21 Breanna Garcia MD [address] [place] [address] [email or web address] Historical LMR Provider 05/27/17 08/19/21 documented as of this encounter Additional Source Comments The information contained in this document represents components of the legal health record. It is not the complete legal health record.[facility]
--- OUTSIDE RECORDS SUMMARY | 2025-05-12 08:28 | XMS_ITS | Encounter Summary ---
Author Organization [facility] Address [address] [place] [address] Phone Care Team Providers Care Spine Nurse Name Role Phone Cynthia Romo Primary Care Provider [phone] Encounter Details Date Type Department Care Team (Late st Contact Info) Description 11/17/2021 Procedure Pass [place] Admitting Dept - Virtual Department [address] [place] [id number] Social History Tobacco Use Types Packs/Day Years Used Date Smoking Tobacco: Former Cigarettes 1 12 1 960 - 1972 Smokeless Tobacco: Never Comments:about 30 yrs played in smoking pubs Alcohol Use Standard Drinks/Week Comments Not Currently 0 (1 standard drink = 0.6 oz pur e alcohol) none 2 months Comments No Sex and Gender Information Value Date Recorded Sex Assigned at Female 10/26/2018 7:35 AM EDT Legal Sex Female 10:08 PM EDT Gender Identity Female 10/26/2018 7:35 AM EDT Sexual Orientation Lesbian or Maloney 10/26/2018 7: 35 AM EDT Occupation Industry Job Start Date Job End Date 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 on file Not on joceline e Not on file documented as of this encounter Plan of Treatment Not on file documented as of this encounter Visit Diagnoses Not on filedocumented in this encounter Additional Health Concerns Infection Onset Date Last Indicated Resolved Time CoV-Risk 05/11/2024 05/11/2024 05/22/2024 1:22 AM EDT documented as of this encounter Care Teams Spine Nurse Relationship Specialty Start Date End Date Cynthia Romo PA [address] [place] [address] PCP - General Chemical Production Engineer 10/26/18 documented as of this encounter Additional Source Comments The information contained in this document represents components of the legal health record. It is not the complete legal health record.[facility]
--- OUTSIDE RECORDS SUMMARY | 2025-05-12 08:28 | XMS_ITS | Encounter Summary ---
Author Organization [facility] Address [address] [place] [address] Phone Care Team Providers Care Cement Finishing Supervisor Name Role Phone Cynthia Romo Primary Care Provider [phone] Encounter Details Date Type Department Care Team (Late st Contact Info) Description 02/20/2024 Transcribe Orders Virtual Department [address] [place] [address] Babar Mcbride MD [address] [place] [address] History of giant cell arteritis (Primary Dx) Social History Tobacco Use Types Packs/Day Years Used Date Smoking Tobacco: Former Cigarettes 1 12 960 - 1971 Smokeless Tobacco: Never Comments:about 30 yrs played in smoking pubs Alcohol Use Standard Drinks/Week Comments Not Currently 0 (1 standard drink = 0.6 oz pur e alcohol) none 2 months Education Answer Date Recorded Are you interested in more education? Not on joceline e 12/07/2022 Are you concerned about learning? Not on file 12/07/2022 No 12/07/2022 No 12/07/2022 Digital Access Answer Date Recorded No 01/05/2023 No 01/05/2023 Reliable internet access at home? Not on file 01/05/2023 Device with a working camera? 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 file Not on joceline e Not on file documented as of this encounter Plan of Treatment Not on file documented as of this encounter Visit Diagnoses Diagnosis History of giant cell arteritis- Primary documented in this encounter Additional Health Concerns Infection Onset Date Last Indicated Resolved Time CoV-Risk 05/11/2024 05/11/2024 05/22/2024 1:22 AM EDT documented as of this encounter Care Teams Cement Finishing Supervisor Relationship Specialty Start Date End Date Cynthia Romo PA [address] [place] [phone] PCP - General Rough Rounder Machine 10/26/18 documented as of this encounter Additional Source Comments The information contained in this document represents components of the legal health record. It is not the complete legal health record.[facility]
--- OUTSIDE RECORDS SUMMARY | 2025-05-12 08:28 | XMS_ITS | Clinical Summary ---
Author Organization [facility] Address [email or web address] [facility] [address] [place] [phone] Phone Care Team Providers Care Police Shift Commander Name Role Phone Cynthia Romo Primary Care Provider [phone] Allergies Active Allergy Reactions Criticality Noted Date Comments Atovaquone-Proguanil Itching 04/27/2014 Erythromycin Rash Low 04/27/2014 Fluticasone Propion-Salmeterol 04/25/2021 Severe muscle cramps lasting three hours Medications albuterol 90 mcg/actuation inhalerIndicatio ns:Mild persistent asthma without complication Inhale 2 puffs into the lungs every 6 (six) hours as needed for wheezing or shortness of breath/dyspnea. 6.7 g 5 1 Active Additional Information Patient not taking.Reported on 08/21/2021 fluticasone furoate-vilanter oL (BREO ELLIPTA) 200-25 mcg/dose inhalerIndicatio ns:Mild persistent asthma without complication Inhale 1 puff into the lungs daily. 60 each 5 2 Active lisinopril (PRINIVIL,ZESTRI L) 2.5 MG tablet Take 1 tablet by mouth every morning. 4 Active predniSONE (DELTASONE) 1 MG tablet TAKE 4 TABLETS EVERY DAY BY ORAL ROUTE FOR 30 DAYS. 4 Active cholecalciferol (VITAMIN D3) 25 MCG (1,000 unit) tablet Take by mouth. Activ e omeprazole (PRILOSEC) 20 MG capsule Take 1 capsule by mouth daily. Active EVENITY 210mg/2.34mL ( 105mg/1.17mLx2) subcutaneous syringe multipack 5 Active predniSONE (DELTASONE) 20 MG tablet TAKE 3 TABLETS ORALLY DAILY FOR 30 DAYS TAKE WITH FOOD 5 Active cyclobenzaprine (FLEXERIL) 5 MG tablet take 1 tablet by mouth everyday at bedtime 5 Active morphine (MSIR) 15 MG tablet Take 1 tablet (15 mg total) by mouth every 4 (four) hours as needed for pain (specific location in comments). 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 Previously well controlled, but stopped Symbicort due to thrush (occurred once) and subsequently developed shortness of breath with exertion. After restarting Symbicort, symptoms improved but she continued to have exertional shortness of breath. She wears an Invisalign at night and it is possible that this was trapping some of the ICS in her mouth after using her inhaler at night, perhaps leading to thrush. We anticipated she would symptomatically benefit from escalation of her controller inhaler therapy (previously, only taking low-dose Symbicort once daily) and using once daily Breo would allow for her to avoid using ICS at night in conjunction with wearing the Invisalign. Breo [address] of Symbicort with significant interval improvement in her shortness of breath and exercise capacity. PFTs from 06/2021 notable for borderline mild obstructive physiology (FEV1/FVC 70, FEV1 1.83 L or 97% predicted) without significant change post-bronchodilator, mildly impaired diffusion capacity. These findings suggest asthma-COPD overlap. -Continue Breo 200 -Albuterol as needed Assessment & Plan (05/25/2021 3:45 PM EDT): Mild persistent asthma. Previously well controlled, but stopped Symbicort due to thrush (occurred once) and subsequently developed shortness of breath with exertion. Since restarting Symbicort, symptoms have improved but she continues to have exertional shortness of breath. She wears an Invisalign at night and it is possible that this could be trapping some of the ICS in her mouth after using her inhaler at night, perhaps leading to thrush. I anticipate she would symptomatically benefit from escalation of her controller inhaler therapy (previously, only taking low-dose Symbicort once daily) and using once daily Breo would allow for her to avoid using ICS at night in conjunction with wearing the Invisalign. We also discussed her CKD, closely followed by Dr. Blackman, which does not appear to be actively contributing to her shortness of breath (no issues with urinating/volume overload or anemia). -Start Breo 200 (advised patient to rinse mouth with water after each use to avoid thrush) -Albuterol as needed -Obtain PFTs Temporal arteritis 07/24/2020 Paroxysmal atrial fibrillation 12/02/2019 Assessment & Plan (12/02/2019 12:48 PM EDT): 34-year-old female with new onset paroxysmal atrial fibrillation on 50 twice daily metoprolol and Eliquis. We will continue the same medications for now. She will be monitored remotely from the pacemaker for A. fib burden SSS (sick sinus syndrome) 08/31/2019 Assessment & Plan (09/11/2019 12:41 PM EST): Programming device evaluation with iterative adjustment of the implantable device to test the function of the device and select optimal permanent program values with analysis review and report. Normal pacemaker function. She has been set up with remote monitoring. We will check a remote device interrogation in 3 months. She has spoken with Christine once again today to clarify any question she had with the remote monitoring. Her incision is healing well. Steri-Strips were removed today. Left upper chest incision has no evidence of infection. No redness, drainage, warmth. She is cleared to resume driving. Symptomatic bradycardia 08/31/2019 Assessment & Plan (08/31/2019 1:11 PM EST): Symptomatic bradycardia/sick sinus syndrome status post dual-chamber pacemaker implantation with conscious sedation. -Pain management with Tylenol 650 mg every 6 hours mild pain, and oxycodone 5 mg every 6 hours for breakthrough pain. -Postoperative chest x-ray shows leads in appropriate position. -Monitor overnight on telemetry -Device check and chest x-ray in the morning ordered by the cardiology team -Sling ordered with lifting restrictions in place -Patient to be given device informational handout -Supportive care as needed (ice packs, supplemental oxygen, etc.) -Follow labs in a.m. Insomnia 08/31/2019 Assessment & Plan (08/31/2019 1:43 PM EST): Patient uses marijuana gummies at home if needed for insomnia. I will give her melatonin if needed. Hearing loss 06/29/2019 Bradycardia 12/11/2018 Assessment & Plan (12/02/2019 12:48 PM EDT): Sick sinus syndrome with dual-chamber pacemaker working appropriately Assessment & Plan (06/18/2019 12:07 PM EST): Sick sinus syndrome with symptomatic's sinus bradycardia. She does qualify for a pacemaker but there is no urgency for it. This is all symptom limited and when she feels the need for it we can proceed with it. She has not had any syncopal episodes. She feels this holiday season is going to be busy and she would rather wait till next year to do that. I do not see any emergency for this and unless she has any syncopal episode or long pauses we will plan to see her back in 3 months and rediscuss this. Assessment & Plan (12/11/2018 10:44 AM EDT): 70-year-old female with mild bradycardia which is largely asymptomatic except for at high levels of exercise. I did tell her that she has sick sinus syndrome and eventually may need pacemaker but at this time there is no strong indications. I did warn her about symptoms of dizziness lightheadedness and syncope if that happens she will call us. Otherwise we will proceed with pacemaker if symptomatically indicated. 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 Will give her Lorazepam if needed while hospitalized. Frequent nosebleeds Hypertensive disorder Assessment & Plan (09/11/2019 12:40 PM EST): She is interested in reducing her lisinopril. I have let her know that her blood pressure today is normal on the current dose and I have suggested that she continue this dose. She is willing to do that. Assessment & Plan (08/31/2019 1:14 PM EST): Continue home dose of lisinopril 10 mg daily. The patient reports that she monitors her home blood pressures and alternates 5 mg to 10 mg depending on her blood pressure. She was given a first dose of 10 mg on arrival to the floor today. -Monitor blood pressures closely, could decrease dose if needed. Most recent systolic blood pressure in the 160s. Allergic rhinitis Erythema multiforme Assessment & Plan (08/31/2019 1:12 PM EST): Patient reports sensitivity to multiple fabrics and topical agents. She did have a slight skin reaction while in the procedure room. I did offer her Benadryl which she refused. I will make that available if needed if her neck rash progresses. Osteoporosis Encounters Date Type Department Care Team Description 05/06/2025 Transcribe Orders [facility] [address] [place] [address] Krystina Hall Encounter for rehabilitation (Primary Dx) 05/05/2025 Transcribe Orders [facility] [address] [place] [address] Cynthia Romo PA 05/05/2025 Transcribe Orders [facility] [address] [place] [address] Cynthia Romo PA Encounter for rehabilitation (Primary Dx) 03/29/2025 Ancillary Orders [facility] Department [address] [place] [id number] Cynthia Romo PA Chronic intractable headache, unspecified headache type (Primary Dx); Other chronic pain 03/29/2025 Transcribe Orders [facility] [address] [place] [address] Cynthia Romo PA Chronic intractable headache, unspecified headache type (Primary Dx) 03/20/2025 12:35 PM EDT - 03/20/2025 11:59 PM EDT Hospital Encounter [address] [address] Cynthia Romo PA Discharge Disposition: Home or Self Care 03/17/[address] [address] 03/17/[address] [address] 03/17/2025 Transcribe Orders Virtual Department [address] [place] [id number] Cynthia Romo PA Pain, unspecified (Primary Dx) 03/16/2025 5:43 PM EDT - 03/17/2025 6:27 AM EDT Emergency [facility] Emergency [address] [place] [id number] Dontrell Tong MD Kanter, Carolyn R, MD Discharge Disposition: Home or Self Care 03/16/2025 6:33 AM EDT - 03/16/2025 6:34 AM EDT Emergency [facility] Emergency [address] [place] [id number] Discharge Disposition: Left Without Being Seen 03/16/[address] [address] 03/15/2025 8:40 AM EDT Office Visit [facility] at [address] [address] Cristy Perales, Emy Maguire CNP Visit for wound check (Primary Dx) 03/14/2025 9:20 AM EDT Office Visit [facility] at [address] [address] Emy Honeycutt CNP Skin tear of left forearm without complication, initial encounter (Primary Dx) from Last 3 Months Immunizations Immunization Administration Dates Next Due COVID-19 (Pre-06/03) Moderna Vaccine, Bivalent 6mo+ 12/27/2022 COVID-19 (Pre) Pfizer Vaccine, Bivalent 12+ 04/26/2022 COVID-19 (Pre-06/03) Pfizer Vaccine, mRNA, PF 04/26/2022,05/14/2021,10/08/2020,2020 COVID-19 Novavax Vaccine 12+ 05/02/2024 Hepatitis A, Adult 08/06/2013,09/24/2012 INFLUENZA, SPLIT VIRUS, TRIVALENT PF 08/21/2012 Influenza High-Dose Quadriva lent Preservative Free IM 06/14/2020 Influenza High-Dose Trivalen t Preservative Free IM 10/03/2018 Influenza Quadrivalent Prese rvative Free IM 05/20/2019 Pneumococcal conjugate PCV13 11/24/2018 Td (adult) 5 Lf Tetanus Toxo id, PF, Adsorbed 10/24/2011 Typhoid,oral 09/24/2012 Zoster recombinant 08/16/2020,05/31/2020, 020 Family History Medical History Relation Comments Diabetes type II Brother Parkinson's disease Father Breast cancer Maternal Aunt Breast cancer Mother Lung cancer Mother Relation Status Comments Brother Father Maternal Aunt Mother Social History Tobacco Use Types Packs/Day Years Used Date Smoking Tobacco: Former Cigarettes 1 12 1 0 - 1971 Smokeless Tobacco: Never Tobacco Cessation:Counseling Given: Not Answered Comments:about 30 yrs played in smoking pubs [...] with a working camera? Not on file Intimate Partner Violence Answer Date R ecorded Are you denied basic needs s uch as food, clothing, or medical care? No 03/16/2025 In the past 12 months have y ou been in a relationship with a person who hurts, threatens, or tries to control you? No 03/16/2025 Are you denied basic needs s uch as food, clothing, or medical care? No 03/16/2025 In the past 12 months have y ou been in a relationship with a person who hurts, threatens, or tries to control you? 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 Not on file Not on joceline e Not on file Last Filed Vital Signs Vital Sign Reading Time Taken Comments Blood Pressure 147/78 03/17/2025 6:06 AM EDT Pulse 60 03/16/2025 5:19 PM EDT Temperature 37 C (98.6 F) 03/17/2025 6:11 AM EDT Respiratory Rate 20 03/16/2025 5:19 PM EDT Oxygen Saturation 100% 03/17/2025 6:06 AM EDT Inhaled Oxygen Concentration - - Weight 54.4 kg (120 lb) 03/16/2025 3:07 PM EDT Height 162.6 cm (5' 4 ) 03/16/2025 3:07 PM EDT Body Mass Index 20.6 03/16/2025 3:07 PM EDT Plan of Treatment Health Maintenance Due Date Last Done Comments LIPID PANEL 1945 DEPRESSION SCREENING 1957 HEPATITIS C SCREENING 1963 OSTEOPOROSIS SCREENING INITIAL (ONE-TIME) 2010 INFLUENZA VACCINE (#1) 2025 , 06/04/2022, 07/28/2021, Additional history exists COVID-19 VACCINE ( season) 2025 05/02/2024, 05/17/2023, 05/17/2023, Additional history exists BLOOD PRESSURE 09/15/2025 03/15/2025 CREATININE LEVEL 03/16/2026 03/16/2025, , 04/22/2021, Additional history exists POTASSIUM LEVEL 03/16/2026 03/16/2025, 04/14, 04/22/2021, Additional history exists Adult Td,Tdap Booster 09/19/2031 09/19/2021, 012 HEPATITIS A VACCINES Aged Out 08/06/2013, 09/24/19 13 No longer eligible based on patient's age to complete this topic ZOSTER VACCINES Completed 08/16/2020, 05/13, 05/16/2020 PNEUMOCOCCAL VACCINES (50+ years) Completed 09/25/2021, 11/24/2018 RSV VACCINE Completed 08/07/2023 SMOKING STATUS SCREENING (Once After 26 Yrs) Completed 03/16/2025 HIB VACCINES Aged Out No longer eligi ble based on patient's age to complete this topic MENINGOCOCCAL VACCINES (ACWY) Aged Out No longer eligible based on patient's age to complete this topic MENINGOCOCCAL VACCINES (B) Aged Out N o longer eligible based on patient's age to complete this topic Medical Devices Implanted Type Area Vice President Payment Device Identifier Shelf Expiration Date Model / Serial / Lot Lead Tendril Sts 6fr 52cm Pacing Optim Insulation Ext/Ret [place] Silicone Tip Is-1 Bipolar Connector - [id number] Implanted:Qty: 1 on 08/31/2019 by Kaylee Salcedo MD at [facility] Lead [employer] [id number] 06/11/2022 2088TC/52 / [id number] / Lead Tendril Sts 6fr 46cm Pacing Optim Insulation Ext/Ret [place] Silicone Tip Is-1 Bipolar Connector - [id number] Implanted:Qty: 1 on 08/31/2019 by Kaylee Salcedo MD at [facility] Lead [employer] [id number] 02/08/2022 2088TC/46 / [id number] / Pacemaker Dual Chamber [id number] 20g 10.4cc Is-1 Connector Assurity Mri - [id number] Implanted:Qty: 1 on 08/31/2019 by Kaylee Salcedo MD at [facility] Pacemaker [employer] [id number] 01/09/2021 [id number] / [id number] / Procedures Procedure Name Priority Date/Time Associated Diagnosis Comments OUTSIDE LAB 03/30/2025 OUTSIDE IMAGING 03/30/2025 CT ABDOMEN/PELVIS WITH CONTRAST Routine 03/20/2025 1:45 PM EDT Pain, unspecified CT CHEST WITH CONTRAST Routine 1:45 PM EDT Pain, unspecified CT ANGIO HEAD WITH AND WITHOUT CONTRAST, CT ANGIO NECK WITH CONTRAST Routine 03/17/2025 12:56 AM EDT OSMOLALITY (URINE, RANDOM) STAT 03/16/2025 10:31 PM EDT SODIUM, RANDOM URINE STAT 03/16/2025 10:31 PM EDT URINALYSIS W/REFLEX URINE CULTURE STAT 03/16/2025 10:31 PM EDT OSMOLALITY, SERUM STAT 03/16/2025 6:5 1 PM EDT ECG 12-LEAD STAT 03/16/2025 6:46 PM EDT LAB ADD ON STAT 03/16/2025 6:19 PM EDT SEDIMENTATION RATE (ESR) Routine 03/16/2025 3:40 PM EDT C-REACTIVE PROTEIN Routine 03/16/2025 3: 40 PM EDT BASIC METABOLIC PANEL STAT 03/16/2025 3:40 PM EDT CBC AND DIFFERENTIAL STAT 03/16/2025 3:40 PM EDT LACERATION REPAIR Routine 03/14/2025 9:5 4 AM EDT Skin tear of left forearm without complication, initial encounter from Last 3 Months Results * Outside Imaging Report Only (03/30/2025) us Scanning Interface Provider IMG XR CHEST Danika l Result * Outside Lab (03/30/2025) us Scanning Interface Provider LAB BLOOD ORDERABLES Final Result * CT CHEST WITH CONTRAST (03/20/2025 1:45 PM EDT) MGB IMG RECOMMENDATION COMMENT Scattered pulmonary nodules up to 3 mm; pulmonary nodule [facility] Anatomical Region Laterality Modality Chest Computed Tomogra phy 03/25/2025 9:05 AM EDT Impressions 03/25/2025 9:36 AM EDT 1. Scattered pulmonary nodules measuring up to [address] chest in 12-14 months for pulmonary nodule. Narrative 03/25/2025 9:[address] CHEST WITH CONTRAST Referring clinician's provided indication for this examination in [facility]: Outside Radiology Order; whole body pain TECHNIQUE: Multidetector CT of the chest was performed with intravenous contrast using tailored dose modulation techniques. COMPARISON: None. FINDINGS: Devices/Tubes/Lines: Lines and tubes are in expected position. Lungs: The central airways are patent. There is a small amount of linear atelectasis in the medial left upper lobe. There are a few scattered pulmonary nodules measuring up to 3 mm, for example in the right lower lobe, 3:66. Pleura: Normal. No pleural effusion or pneumothorax. Mediastinum: Normal. No thyroid nodules. Heart and pericardium are normal. Moderate amount of coronary calcifications. Lymph Nodes: Normal. No enlarged supraclavicular, axillary, mediastinal, or hilar lymph nodes. Upper Abdomen: Cortical cyst upper pole left kidney. Chest Wall: Normal. No chest wall mass. Bones: No suspicious lytic or blastic lesions. Procedure Note Gurmeet Perez MD - 03/25/2025 CT CHEST WITH CONTRAST Referring clinician's provided indication for this examination in [facility]:Outside Radiology Order; whole body pain TECHNIQUE: Multidetector CT of the chest was performed with intravenouscontrast using tailored dose modulation techniques. COMPARISON: None. FINDINGS: Devices/Tubes/Lines: Lines and tubes are in expected position. Lungs: The central airways are patent. There is a small amount of linearatelectasis in the medial left upper lobe. There are a few scattered pulmonary nodules measuring up to 3 mm, forexample in the right lower lobe, 3:66. Pleura: Normal. No pleural effusion or pneumothorax. Mediastinum: Normal. No thyroid nodules. Heart and pericardium are normal.Moderate amount of coronary calcifications. Lymph Nodes: Normal. No enlarged supraclavicular, axillary, mediastinal,or hilar lymph nodes. Upper Abdomen: Cortical cyst upper pole left kidney. Chest Wall: Normal. No chest wall mass. Bones: No suspicious lytic or blastic lesions. IMPRESSION: 1. Scattered pulmonary nodules measuring up to [address] chest in 12-14 months for pulmonary nodule. [facility]ST Final Resu lt * CT ABDOMEN/PELVIS WITH CONTRAST (03/20/2025 1:45 PM EDT) Anatomical Region Laterality Modality Abdomen, Pelvis Computed Tomogra phy 03/25/2025 8:55 AM EDT Impressions 03/25/2025 9:07 AM EDT No acute finding in the abdomen or pelvis. Narrative 03/25/2025 9:[address] ABDOMEN/PELVIS WITH CONTRAST Referring clinician's provided indication for this examination in Epic: Outside Radiology Order; whole body pain TECHNIQUE: Multidetector-row CT of the abdomen and pelvis was performed after administration of intravenous contrast using tailored dose modulation techniques. Images were reconstructed in the axial, coronal, and sagittal planes. COMPARISON: None. FINDINGS: Lower Chest: CT chest from the same day is reported separately. Liver: No focal lesions. Biliary: No biliary ductal dilatation. Spleen: No splenomegaly or focal lesions. Pancreas: No masses or ductal dilatation. Adrenal Glands: No nodules. Kidneys/Ureters: Left renal cysts and subcentimeter hypoattenuating lesions which are too small to characterize in both kidneys. No solid masses, stones, or hydronephrosis. Bowel: No distention or wall thickening. Peritoneum/Retroperitoneum: No masses, pneumoperitoneum, or fluid. Lymph Nodes: No lymphadenopathy. Pelvic Organs/Bladder: No mass. Vessels: Atherosclerotic changes of the abdominal aorta without aneurysm. Bones/Soft Tissues: No destructive osseous lesions. Demineralization of the osseous structures. Procedure Note Sarah Montes MD - 03/25/2025 CT ABDOMEN/PELVIS WITH CONTRAST Referring clinician's provided indication for this examination in Epic:Outside Radiology Order; whole body pain TECHNIQUE: Multidetector-row CT of the abdomen and pelvis was performedafter administration of intravenous contrast using tailored dosemodulation techniques. Images were reconstructed in the axial, coronal,and sagittal planes. COMPARISON: None. FINDINGS: Lower Chest: CT chest from the same day is reported separately. Liver: No focal lesions. Biliary: No biliary ductal dilatation. Spleen: No splenomegaly or focal lesions. Pancreas: No masses or ductal dilatation. Adrenal Glands: No nodules. Kidneys/Ureters: Left renal cysts and subcentimeter hypoattenuatinglesions which are too small to characterize in both kidneys. No solidmasses, stones, or hydronephrosis. Bowel: No distention or wall thickening. Peritoneum/Retroperitoneum: No masses, pneumoperitoneum, or fluid. Lymph Nodes: No lymphadenopathy. Pelvic Organs/Bladder: No mass. Vessels: Atherosclerotic changes of the abdominal aorta withoutaneurysm. Bones/Soft Tissues: No destructive osseous lesions. Demineralization ofthe osseous structures. IMPRESSION: No acute finding in the abdomen or pelvis. Cynthia CROUCH IMG CT ABD/PELVIS Final Re sult * CT ANGIO HEAD WITH AND WITHOUT CONTRAST, CT ANGIO NECK WITH CONTRAST (03/17/2025 12:56 AM EDT) Anatomical Region Laterality Modality Neck Computed Tomogra phy 03/17/2025 1:47 AM EDT Impressions 03/17/2025 1:57 AM EDT 1. No acute intracranial findings on noncontrast head CT. 2. No large vessel occlusion, high-grade stenosis, aneurysm or dissection in the head or neck. Narrative 03/17/2025 1:[address] ANGIO HEAD WITH AND WITHOUT CONTRAST, CT ANGIO NECK WITH CONTRAST Referring clinician's provided indication for this examination in Epic: * Carotid artery dissection suspected TECHNIQUE: * CTA of the head was performed before and after administration of intravenous contrast using tailored dose modulation techniques. Images were reconstructed in the axial, coronal, and sagittal planes, including angiographic image post-processing. 3D angiographic images with reformatting and post-processing reconstructions were performed and interpreted. * CTA of the neck was performed after administration of intravenous contrast using tailored dose modulation techniques. Images were reconstructed in the axial, coronal, and sagittal planes. 3D angiographic images with reformatting and post- processing reconstructions were performed and interpreted. COMPARISON: None FINDINGS: CT HEAD: Brain Parenchyma: No midline shift, mass effect, parenchymal hemorrhage, or evidence of acute territorial infarct. Hypodensities in the periventricular white matter, likely a manifestation of chronic small vessel disease. Ventricular System and Extra-Axial Spaces: The ventricles and sulci are prominent. No extra-axial fluid collections. Basilar cisterns are patent. No hydrocephalus. Osseous and Extracranial Structures: No calvarial fracture or significant soft tissue hematoma. No significant paranasal sinus disease. Bilateral lens replacements. CTA HEAD: No aneurysm or arteriovenous malformation. Intracranial internal carotid arteries: No occlusion or high grade stenosis. Anterior cerebral arteries: No occlusion or high grade stenosis. Middle cerebral arteries: No occlusion or high grade stenosis. Vertebrobasilar system: No occlusion or high grade stenosis. Posterior cerebral arteries: No occlusion or high grade stenosis. Venous: No dural sinus thrombosis. CTA NECK: Aortic Arch and Branch Vessel Origins: Normal branching anatomy. No high grade stenosis. Right Carotid Artery: No occlusion, high grade stenosis or dissection. Left Carotid Artery: No occlusion, high grade stenosis or dissection. Right Vertebral Artery: No occlusion, high grade stenosis or dissection. Left Vertebral Artery: No occlusion, high grade stenosis or dissection. Venous structures: The jugular veins enhance normally. NON-VASCULAR FINDINGS: Lungs and Airways: No acute abnormality. Soft tissues: No adenopathy. Partially imaged left chest cardiac device. Hypodense subcentimeter left thyroid nodule. Bones: Degenerative changes of the cervical spine. Procedure Note Theresa Gonzales MD - 03/17/2025 CT ANGIO HEAD WITH AND WITHOUT CONTRAST, CT ANGIO NECK WITH CONTRAST Referring clinician's provided indication for this examination in Epic: *Carotid artery dissection suspected TECHNIQUE: * CTA of the head was performed before and after administration ofintravenous contrast using tailored dose modulation techniques. Imageswere reconstructed in the axial, coronal, and sagittal planes, includingangiographic image post- processing. 3D angiographic images withreformatting and post-processing reconstructions were performed andinterpreted. * CTA of the neck was performed after administration of intravenouscontrast using tailored dose modulation techniques. Images werereconstructed in the axial, coronal, and sagittal planes. 3D angiographicimages with reformatting and post-processing reconstructions wereperformed and interpreted. COMPARISON: None FINDINGS: CT HEAD: Brain Parenchyma: No midline shift, mass effect, parenchymal hemorrhage,or evidence of acute territorial infarct. Hypodensities in theperiventricular white matter, likely a manifestation of chronic smallvessel disease. Ventricular System and Extra-Axial Spaces: The ventricles and sulci areprominent. No extra-axial fluid collections. Basilar cisterns are patent.No hydrocephalus. Osseous and Extracranial Structures: No calvarial fracture or significantsoft tissue hematoma. No significant paranasal sinus disease. Bilaterallens replacements. CTA HEAD: No aneurysm or arteriovenous malformation. Intracranial internal carotid arteries: No occlusion or high gradestenosis. Anterior cerebral arteries: No occlusion or high grade stenosis. Middle cerebral arteries: No occlusion or high grade stenosis. Vertebrobasilar system: No occlusion or high grade stenosis. Posterior cerebral arteries: No occlusion or high grade stenosis. Venous: No dural sinus thrombosis. CTA NECK: Aortic Arch and Branch Vessel Origins: Normal branching anatomy. No highgrade stenosis. Right Carotid Artery: No occlusion, high grade stenosis or dissection. Left Carotid Artery: No occlusion, high grade stenosis or dissection. Right Vertebral Artery: No occlusion, high grade stenosis or dissection. Left Vertebral Artery: No occlusion, high grade stenosis or dissection. Venous structures: The jugular veins enhance normally. NON-VASCULAR FINDINGS: Lungs and Airways: No acute abnormality. Soft tissues: No adenopathy. Partially imaged left chest cardiac device.Hypodense subcentimeter left thyroid nodule. Bones: Degenerative changes of the cervical spine. IMPRESSION: 1. No acute intracranial findings on noncontrast head CT. 2. No large vessel occlusion, high-grade stenosis, aneurysm or dissectionin the head or neck. Doreen Lowery MD IMG CT HEAD/NECK Final Resul t * Urinalysis w/reflex Urine Culture (03/16/2025 10:31 PM EDT) COLOR Yellow Yellow [facility] CLARITY Clear [facility] GLUCOSE Negative Negative [facility] BILI Negative Negative [facility] KETONES Negative Negative [facility] SPECIFIC GRAVITY <1.005 1.005 - 1.030 [facility] BLOOD Negative Negative [facility] PH 6.0 5.0 - 8.0 [facility] Protein-UA Negative Negative [facility] NITRITE Negative Negative [facility] Leukocyte esterase, ur Negative Negative [facility] Urine (Urine) 03/16/2025 10: 31 PM EDT 03/16/2025 11:05 PM EDT Dontrell Tong MD URINE ORDERABLES Final Result Performing Organization Address [facility] Co de Phone Number [address] [address] * Sodium, random urine (03/16/2025 10:31 PM EDT) URINE SODIUM 21 mmol/L [facility] Urine (Urine) 03/16/2025 10: 31 PM EDT 03/16/2025 11:05 PM EDT Dontrell Tong MD URINE ORDERABLES Final Result Performing Organization Address [facility] Co de Phone Number [address] [address] * Osmolality, Random Urine (03/16/2025 10:31 PM EDT) URINE OSMOLALITY 251 mOsm/kg water [facility] Urine (Urine) 03/16/2025 10: 31 PM EDT 03/16/2025 11:05 PM EDT us Dontrell Tong MD URINE ORDERABLES Final Result Performing Organization Address [facility] Co de Phone Number [address] [address] * (ABNORMAL) Osmolality, serum (03/16/2025 6:51 PM EDT) OSMOLALITY 285(L) 289 - 308 mOsm/kg water [facility] Blood 03/16/2025 6:51 PM EDT 03/16/2025 6:55 PM EDT us Dontrell Tong MD LAB BLOOD ORDERABLES Final Resu lt Performing Organization Address [facility] de Phone Number [address] [address] * ECG 12-LEAD (03/16/2025 6:46 PM EDT) Ventricular Rate EKG/MIN 60 BPM [facility] Atrial Rate 250 BPM [facility] NM Interval 238 ms [facility] QRS Duration 84 ms [facility] QT Interval 394 ms [facility] QTC Interval 394 ms [facility] P [place] 80 degrees [facility] R Wave [place] -10 degrees [facility] T Wave [place] 11 degrees [facility] 03/16/2025 6:46 PM EDT 03/17/2025 7:47 AM EDT Narrative [facility] - 03/17/2025 7:47 AM EDT Atrial-paced rhythm with prolonged AV conduction Nonspecific ST and T wave abnormality Abnormal ECG When compared with ECG of 11-May-2024 19:16, Minimal criteria for Anteroseptal infarct are no longer Present Confirmed by Rafa Salvador ([id number]) on 03/17/2025 7:47:00 AM us Dontrell Tong MD ECG ORDERABLES Final Result Performing Organization Address [facility] Co de Phone Number [email or web address] * Lab Add On: serum osmolality (03/16/2025 6:19 PM EDT) TEST REQUESTED SERUM OSMOLALITY [facility] Comments (Chemistry) Add on order being processed. Floor or provider will be notified if testing cannot be performed [facility] 03/16/2025 6:19 PM EDT 03/16/2025 6:25 PM EDT us Dontrell Tong MD LAB BLOOD ORDERABLES Final Resu lt [address] [address] * Sedimentation rate (ESR) (03/16/2025 3:40 PM EDT) Pathologist [facility] ESR 6 0 - 30 mm/h [facility] 03/16/2025 3:40 PM EDT 03/16/2025 3:58 PM EDT us Rhys Trinidad MD LAB BLOOD ORDERABL ES Final Result [address] [address] * (ABNORMAL) CBC and differential (03/16/2025 3:40 PM EDT) WBC 10.74 4.00 - 11.00 K/uL [facility] RBC 4.84 4.00 - 5.20 M/uL [facility] HGB 13.7 12.0 - 16.0 g/dL [facility] HCT 41.5 36.0 - 46.0 % [facility] PLT 247 150 - 450 K/uL [facility] MCV 85.7 80.0 - 100.0 fL [facility] MCH 28.3 27.0 - 31.0 pg [facility] MCHC 33.0 32.0 - 36.0 g/dL [facility] RDW 14.3 11.5 - 14.5 % [facility] MPV 10.4 8.4 - 12.0 fL [facility] NRBC 0.00 0.00 /100 WBCs [facility] ABSOLUTE NRBC 0.00 0.00 K/uL [facility] DIFF METHOD Auto [facility] NEUTS 92.3(H) 48.0 - 76.0 % [facility] LYMPHS 3.5(L) 18.0 - 41.0 % [facility] MONOS 2.9(L) 4.0 - 11.0 % [facility] EOS 0.0 0.0 - 5.0 % [facility] BASOS 0.1 0.0 - 1.5 % [facility] Granulocytes, immature (%) 1.2(H) 0.0 - 0.9 % [facility] ABSOLUTE NEUTS 9.91(H) 1.92 - 7.60 K/uL [facility] ABSOLUTE LYMPHS 0.38(L) 0.72 - 4.10 K/uL [facility] ABSOLUTE MONOS 0.31 0.16 - 1.10 K/uL [facility] ABSOLUTE EOS 0.00 0.00 - 0.50 K/uL [facility] ABSOLUTE BASOS 0.01 0.00 - 0.15 K/uL [facility] Granulocytes, immature 0.13(H) 0.00 - 0.09 K/uL [facility] Blood 03/16/2025 3:40 PM EDT 03/16/2025 3:58 PM EDT us Rhys Trinidad MD LAB BLOOD ORDERABL ES Final Result [address] [address] * C-Reactive Protein (03/16/2025 3:40 PM EDT) C REACTIVE PROTEIN <3.0 0.0 - 4.0 mg/L [facility] 03/16/2025 3:40 PM EDT 03/16/2025 3:58 PM EDT Rhys Trinidad MD LAB BLOOD ORDERABL ES Final Result Performing Organization Address [facility] Co de Phone Number [address] [address] * (ABNORMAL) Basic metabolic panel (03/16/2025 3:40 PM EDT) SODIUM 130(L) 133 - 146 mmol/L [facility] CHLORIDE 95(L) 96 - 108 mmol/L [facility] POTASSIUM 5.0 3.3 - 5.1 mmol/L [facility] CO2 25 21 - 35 mmol/L [facility] BUN 25(H) 6 - 19 mg/dL [facility] CREATININE 1.00 0.5 - 1.5 mg/dL [facility] GLUCOSE 127(H) 70 - 99 mg/dL [facility] CALCIUM 9.1 8.4 - 10.3 mg/dL [facility] EGFR 57(L) >59 mL/min/1.7 3m2 [facility] Comment:Estimated glomerular filtration rate calculated using the CKD-EPI refit equation. ANION GAP 15 10 - 20 mmol/L [facility] Blood 03/16/2025 3:40 PM EDT 03/16/2025 3:58 PM EDT us Rhys Trinidad MD LAB BLOOD ORDERABL ES Final Result Performing Organization Address [facility] Co de Phone Number [address] [address] * LACERATION REPAIR (03/14/2025 9:54 AM EDT) Other Narrative Emy Honeycutt CNP - 03/14/2025 9:54 AM EDT Emy Honeycutt CNP 03/14/2025 9:57 AM Laceration/Wound Repair Date/Time: 03/14/2025 9:54 AM Performed by: Emy Honeycutt CNP Authorized by: Emy Honeycutt CNP Injury: Body area: Upper extremity Location details: Left lower arm Laceration length (cm): 2 Foreign bodies: No foreign bodies Tendon involvement: None Nerve involvement: None Vascular damage?: No Patient sedated?: No Anesthesia: No Procedure Details: Preparation: Patient was prepped and draped in usual sterile fashion Irrigation solution: Saline Irrigation method: Syringe Amount of cleaning: Standard Debridement: None Skin was unfurled and placed in appropriate anatomic position and covered with Xeroform, Telfa and gauze for padding. Wrapped in gauze wrap with no tape on skin Emy Honeycutt FOREST ECOLOGIST PROCEDURE/MINOR SURGICAL OR DERABLES Final Result from Last 3 Months Insurance MEDICARE PART A & B [facility] MEDICARE PART A & B [facility] MEDICARE PART A & B [facility] MEDICARE PART A & B Member Subscriber Plan / Payer (Ef fective 2010-Present) Name:Alyssa Estrada Member ID:[id number] Relation to Subscriber:Self Name:Alyssa Estrada Subscriber ID:[id number] Payer ID:[id number] Group ID:Not on file Type:Medicare Address: [address] [place] [id number] [place] [address] MEDICARE PART A & B [facility] MEDICARE PART A & B [facility] MEDICARE PART A & B [employer] [facility] MEDICARE PART A & B [employer] MEDICARE PART A & B [employer] Advance Directives For more information, please contact: [phone] (9AM - 5PM [facility], Saturday-Saturday) * Full Code (Latest Code Status on File) Date Activated Date Inactivated Comments 11/17/2021 1:26 PM Question Answer Comments Code Status Confirmed With: Patient * Full Code (Presumed) Date Activated Date Inactivated Comments 08/31/2019 12:51 PM 09/01/2019 5:44 PM * Full Code (Confirmed) Date Activated Date Inactivated Comments 08/31/2019 12:23 PM 08/31/2019 12:51 PM Question Answer Comments Code Status Confirmed With: Patient Care Teams Police Shift Commander Relationship Specialty Start Date End Date Cynthia Romo PA [address] [place] [id number] PCP - General Public Safety Director 10/26/18 Additional Source Comments The information contained in this document represents components of the legal health record. It is not the complete legal health record.[facility]
--- OUTSIDE RECORDS SUMMARY | 2025-05-12 08:28 | XMS_ITS | Encounter Summary ---
Author Organization [facility] Address [address] [place] [address] Phone Care Team Providers Care Certified Surgical Tech/First Assistant Name Role Phone Emory Posey MD Unavailable [phone] Abram Mcallister MD Unavailable Breanna Garcia MD Unavailable [phone] Cynthia Romo Primary Care Provider + [phone] Encounter Details Date Type Department Care Team (Late st Contact Info) Description 08/31/2019 Procedure Pass [facility] [address] [place] [address] Social History Tobacco Use Types Packs/Day Years [...] 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 Not on joceline [...] documented as of this encounter Care Teams Certified Surgical Tech/First Assistant Relationship Specialty Start Date End Date Cynthia Romo PA [address] [place] [address] PCP - General Cashier Clerk 10/26/18 Emory Posey MD [address] [place] [address] [place] [address] Historical LMR Provider 05/27/17 2 Abram Mcallister MD [address] [place] [address] [email or web address] Historical LMR Provider 05/27/17 08/19/21 Breanna Garcia MD [address] [place] [address] Historical LMR Provider 05/27/17 08/19/21 documented as of this encounter Additional Source Comments The information contained in this document represents components of the legal health record. It is not the complete legal health record.[facility]
--- OUTSIDE RECORDS SUMMARY | 2025-05-12 08:28 | XMS_ITS | Encounter Summary ---
Author Organization [facility] Address [address] [place] [address] Care Team Providers Care Timing Machine Operator Name Role Phone Adriana Lin MD Primary Care Provider [phone] Encounter Details Date Type Department Care Team (Late Contact Info) Description 04/23/2025 Lab Requisition [facility] - Main Lab [address] [facility] [place] [address] Oxana Serna MD [address] [place] [address] Encounter for other general examination Social History Tobacco Use Types Packs/Day Years [...] Description 10/21/2025 1:30 PM EDT Ancillary Procedure [facility] [address] [facility] [address] [place] [address] documented as of this encounter Procedures Procedure Name Priority Date/Time Associated Diagnosis Comments SEDIMENTATION RATE Routine 04/23/2025 5: 14 AM EDT Encounter for other general examination documented in this encounter Results * Sedimentation rate (04/23/2025 5:14 AM EDT) Sed Rate 30 0 - 30 mm/hr LAB HEMETOLOGY METHOD 04/23/2025 10:40 AM EDT [facility] Blood Venous blood specimen / Unknown Venipuncture / Unknown 04/23/2025 5:14 AM EDT 04/23/2025 9:35 AM EDT us Oxana Serna MD LAB BLOOD ORDERABLES Final Resu lt [facility] [address] [place] [address], documented in this encounter Visit Diagnoses Diagnosis Encounter for other general examination Encounter for adjustment or management of cardiac device documented in this encounter Care Teams Timing Machine Operator Relationship Specialty Start Date End Date Adriana Lin MD [address] [place] [address] PCP - General 07/01/20 documented as of this encounter
--- OUTSIDE RECORDS SUMMARY | 2025-05-12 08:28 | XMS_ITS | Encounter Summary ---
Author Organization [facility] Address [address] [facility] [address] [place] [address] Phone Care Team Providers Care Index Clerk Name Role Phone Cynthia Romo Primary Care Provider [phone] Encounter Details Date Type Department Care Team (Late st Contact Info) Description 11/16/2021 Prep for Surgery [facility] General Surgical Care [address] [place] [address] Cecile Hu MD [address] 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 file Not on joceline e Not on file documented as of this encounter Plan of Treatment Not on file documented as of this encounter Visit Diagnoses Diagnosis Temporal arteritis- Primary Giant cell arteritis documented in this encounter Additional Health Concerns Infection Onset Date Last Indicated Resolved Time CoV-Risk 05/11/2024 05/11/2024 05/22/2024 1:22 AM EDT documented as of this encounter Care Teams Index Clerk Relationship Specialty Start Date End Date Cynthia Romo PA [address] [place] [address] PCP - General Sizing Machine And Drier Operator 10/26/18 documented as of this encounter Additional Source Comments The information contained in this document represents components of the legal health record. It is not the complete legal health record.[facility]
--- OUTSIDE RECORDS SUMMARY | 2025-05-12 08:28 | XMS_ITS | Clinical Summary ---
Author Organization [address] [place] [address] [place] [phone] Phone Care Team Providers Care Medication Specialist Name Role Phone Adriana Lin MD Primary [...] V24, CMS/HCC V28) 0 01/30/2022 Tem[place] [place] [facility] [place] Acute pericarditis 07/25/2020 Bradycardia 07/25/2020 Essential hypertension 07/25/2020 PAF (paroxysmal atrial fibri llation) [place] [place] [facility] [place]28[place] 07/25/2020 Encounters Date Type Department Care Team Description 05/11/2025 2:30 PM EDT Ancillary Procedure [facility] - [address] [place] [phone] Arrived 04/27/2025 Lab Requisition [facility] [address] [place] [phone] Oxana Serna MD Encounter for other general examination 04/23/2025 Lab Requisition [facility] [address] [place] [phone] Oxana Serna MD Encounter for other general examination 04/22/2025 Lab Requisition [facility] [address] [place] [phone] Eli Syed PA Encounter for other general examination 04/22/2025 Lab Requisition [facility] Lab [address] [place] [phone] Lionel Berry PA Encounter for other general examination from Last 3 Months Social History Tobacco [...] EDT Ancillary Procedure [facility] - [facility] [address] [facility] [address] [place] [address] Health Maintenance Due Date Last Done Comments Cholesterol Screening (Lipid Panel) 07/21/2022 05/23/2007, 04/19/2006, 03/01/2005, Additional history exists Falls Risk Assessment 07/21/2022 Hepatitis C Screening 07/21/2022 Osteoporosis Screening (Bone Density Screening) 07/21/2022 Social Influencers of Health Screening 07/21/2022 Medicare Annual Wellness Visit 06/05/2024 06/05/2023 Depression Screening 08/12/2024 COVID-19 Vaccine ( season) 2025 05/02/2024, 05/17/2023, 12/27/2022, Additional history exists Influenza Vaccine (#1) 2025 , 06/04/2022, 07/28/2021, Additional history exists Hypertension/CHF/CAD Annual BMP Blood Test 04/27/2026 04/27/2025, 04/22/2025, 05/11/2024, Additional history exists DTaP,Tdap,and Td Vaccines (3 [...] this topic Medical Devices Implanted Type Area Envelope Sealer Operator Device Identifier Shelf Expiration Date Model / Serial / Lot Abbt-Stju 2272 Assurity Mri(Tm) [id number] Implanted: by Tomas Ornelas MD (Quantity not on file) Cardiac Pacemaker Left: Chest [facility] 2272 ASSURITY MRI(TM) / [id number] / Abbt-Stju Assurity Mri [id number] Implanted: (Quantity not on file) Cardiac Pacemaker [facility] MRI 2272 / [id number] / Procedures Procedure Name Priority Date/Time Associated Diagnosis Comments CARDIAC DEVICE CHECK- REMOTE- MURJ Routine 05/11/2025 2:26 PM EDT VITAMIN B12 Routine 04/27/2025 5:02 AM EDT Encounter for other general examination COMPREHENSIVE METABOLIC PANEL Routine 04/27/2025 5:02 AM EDT Encounter for other general examination MAGNESIUM Routine 04/27/2025 5:02 AM EDT Encounter for other general examination SEDIMENTATION RATE Routine 04/27/2025 5: 02 AM EDT Encounter for other general examination COMPLETE BLOOD COUNT Routine 04/27/2025 5:02 AM EDT Encounter for other general examination SEDIMENTATION RATE Routine 04/23/2025 5: 14 AM EDT Encounter for other general examination CBC WITH AUTO DIFFERENTIAL Routine 04/22/2025 5:50 AM EDT Encounter for other general examination C-REACTIVE PROTEIN Routine 04/22/2025 5: 50 AM EDT Encounter for other general examination SEDIMENTATION RATE Routine 04/22/2025 5: 50 AM EDT Encounter for other general examination MAGNESIUM Routine 04/22/2025 5:50 AM EDT Encounter for other general examination COMPREHENSIVE METABOLIC PANEL Routine 04/22/2025 5:50 AM EDT Encounter for other general examination CBC AND DIFFERENTIAL Routine 04/22/2025 5:50 AM EDT Encounter for other general examination from Last 3 Months Results * Cardiac device check - Remote- MURJ (05/11/2025 2:26 PM EDT) Date Time Interrogation Session [id number] CV DEVICE CHECK Type Interrogation Session Remote Scheduled CV DEVICE CHECK Implantable Pulse Generator Envelope Sealer Operator [employer] CV DEVICE CHECK Implantable Pulse Generator Type IPG CV DEVICE CHECK Implantable Pulse Generator Model 2272 Assurity MRI(TM) CV DEVICE CHECK Implantable Pulse Generator Serial Number [id number] CV DEVICE CHECK Implantable Pulse Generator Implant Date [id number] CV DEVICE CHECK Battery Remaining Percentage 39.00 CV DEVICE CHECK Battery Remaining Longevity 49.0 CV DEVICE CHECK Battery Voltage 2.980 CV D EVICE CHECK Battery PEOPLESOFT FUNCTIONAL ANALYST Trigger 2.600 CV DEVICE CHECK Battery Status Middle of Service CV DEVICE CHECK Epifanio Statistic RA Percent Paced 49.00 CV DEVICE CHECK Epifanio Statistic RV Percent Paced 1.00 CV DEVICE CHECK Atrial Tachy Statistic AT/AF Abie Percent 0.00 CV DEVICE CHECK Lead Channel [...] IMPLANTABLE CARDIAC DEVICE PROCEDURES Final Result * (ABNORMAL) Sedimentation rate (04/27/2025 5:02 AM EDT) Only the most recent of3 resultswithin the time period is included. Sed Rate 32(H) 0 - 30 mm/hr LAB HEMETOLOGY METHOD 04/27/2025 10:33 AM EDT [facility] Blood Venous blood specimen / Unknown Venipuncture / Unknown 04/27/2025 5:02 AM EDT 04/27/2025 9:40 AM EDT us Oxana Serna MD LAB BLOOD ORDERABLES Final Resu lt [facility] [address] [place] [address], * (ABNORMAL) Complete blood count (04/27/2025 5:02 AM EDT) [facility] WBC 9.0 4.8 - 10.8 K/mcL LAB HEMETOLOGY METHOD 04/27/2025 10:25 AM EDT [facility] RBC 3.80 3.80 - 4.80 M/mcL LAB [facility] Hemoglobin 10.7(L) 11.5 - 16.0 g/dL LAB HEMETOLOGY METHOD 04/27/2025 10:25 AM EDT [facility] Hematocrit 33.3(L) 35.0 - 47.0 % LAB HEMETOLOGY METHOD 04/27/2025 10:25 AM EDT [facility] MCV 88.6 79.0 - 98.0 FL LAB HEMETOLOGY METHOD 04/27/2025 10:25 AM EDT [facility] MCH 28.5 27.0 - 32.0 pcg LAB HEMETOLOGY METHOD 04/27/2025 10:25 AM EDT [facility] MCHC 32.1 32.0 - 37.0 g/dL LAB HEMETOLOGY METHOD 04/27/2025 10:[address] [facility] RDW 15.8(H) 11.0 - 15.0 % LAB HEMETOLOGY [facility] Platelets 375 130 - 400 K/mcL LAB HEMETOLOGY METHOD 04/27/2025 10:25 AM EDT [facility] MPV 10.6 7.0 - 11.0 FL LAB HEMETOLOGY METHOD 04/27/2025 10:25 AM EDT [facility] NRBC 0.0 <1.0 % LAB HEMETOLOGY METHOD 04/27/2025 10:25 AM EDT [facility] NRBC Absolute 0.00 <0.10 K/mcL LAB HEMETOLOGY METHOD 04/27/2025 10:25 AM EDT [facility] Blood Venous blood specimen / Unknown Venipuncture / Unknown 04/27/2025 5:02 AM EDT 04/27/2025 9:40 AM EDT us Oxana Serna MD LAB BLOOD ORDERABLES Final Resu lt Performing Organization Address City/[facility]/ZIP Co de Phone Number [facility] [address] [place] [address], [place] [phone] * Magnesium (04/27/2025 5:02 AM EDT) Only the most recent of2 resultswithin the time period is included. [facility] Magnesium 2.2 1.9 - 2.6 mg/dL LAB CHEMISTRY METHOD 04/27/2025 10:52 AM EDT [facility] Blood Venous blood specimen / Unknown Venipuncture / Unknown 04/27/2025 5:02 AM EDT 04/27/2025 9:40 AM EDT us Oxana Serna MD LAB BLOOD ORDERABLES Final Resu lt [facility] [address] [place] [address], [place] [phone] * Vitamin B12 (04/27/2025 5:02 AM EDT) Vitamin B-12 627 250 - 900 pcg/mL LAB CHEMISTRY METHOD 04/27/2025 11:[address] [facility] Blood Venous blood specimen / Unknown Venipuncture / Unknown 04/27/2025 5:02 AM EDT 04/27/2025 9:40 AM EDT us Oxana Serna MD LAB BLOOD ORDERABLES Final Resu lt [facility] [address] [place] [address], [place] [phone] * (ABNORMAL) Comprehensive metabolic panel (04/27/2025 5:02 AM EDT) Only the most recent of2 resultswithin the time period is included. Sodium 138 133 - 145 mmol/L LAB CHEMISTRY METHOD 04/27/2025 11:[address] [facility] Potassium 4.5 3.5 - 5.5 mmol/L LAB CHEMISTRY METHOD 04/27/2025 11:[address] [facility] Chloride 107 96 - 110 mmol/L LAB CHEMISTRY METHOD 04/27/2025 11:[address] [facility] CO2 25 21 - 32 mmol/L LAB CHEMISTRY METHOD 04/27/2025 11:[address] [facility] Anion Gap 6 3 - 11 LAB CHEMISTRY METHOD 04/27/2025 11:[address] [facility] Glucose 96 70 - 100 mg/dL LAB CHEMISTRY METHOD 04/27/2025 11:[address] [facility] BUN 20 5 - 25 mg/dL LAB CHEMISTRY METHOD 04/27/2025 11:[address] [facility] Creatinine 0.91 0.50 - 1.10 mg/dL LAB CHEMISTRY METHOD 04/27/2025 11:[address] [facility] eGFR 64 >=60 mL/min/1. 73m2 LAB CHEMISTRY METHOD 04/27/2025 11:[address] [facility] Comment:Calculation based on the Chronic Kidney Disease Epidemiology Collaboration (CKD-EPI) equation refit without adjustment for race. BUN/Creatinine Ratio 22.0 LAB CHEMISTRY METHOD 04/27/2025 11:[address] [facility] Calcium 9.1 8.5 - 10.5 mg/dL LAB CHEMISTRY METHOD 04/27/2025 11:[address] [facility] AST (SGOT) 14 10 - 42 unit/L LAB CHEMISTRY METHOD 04/27/2025 11:[address] [facility] ALT (SGPT) 24 10 - 60 unit/L LAB CHEMISTRY METHOD 04/27/2025 11:[address] [facility] Alkaline Phosphatase 93 42 - 121 unit/L LAB CHEMISTRY METHOD 04/27/2025 11:[address] [facility] Total Protein 5.6(L) 6.0 - 8.0 g/dL LAB CHEMISTRY METHOD 04/27/2025 11:[address] [facility] Albumin 3.0(L) 3.2 - 5.0 g/dL LAB CHEMISTRY METHOD 04/27/2025 11:[address] [facility] Total Bilirubin 0.5 0.0 - 1.4 mg/dL LAB CHEMISTRY METHOD 04/27/2025 11:[address] [facility] Blood Venous blood specimen / Unknown Venipuncture / Unknown 04/27/2025 5:02 AM EDT 04/27/2025 9:40 AM EDT us Oxana Serna MD LAB BLOOD ORDERABLES Final Resu lt [facility] [address] [place] [address], * (ABNORMAL) CBC auto differential (04/22/2025 5:50 AM EDT) [facility] WBC 5.2 4.8 - 10.8 K/mcL LAB HEMETOLOGY METHOD 04/22/2025 11:[address] [facility] RBC 3.70(L) 3.80 - 4.80 M/mcL LAB HEMETOLOGY METHOD 04/22/2025 11:[address] [facility] Hemoglobin 10.6(L) 11.5 - 16.0 g/dL LAB HEMETOLOGY METHOD 04/22/2025 11:[address] [facility] Hematocrit 32.9(L) 35.0 - 47.0 % LAB HEMETOLOGY METHOD 04/22/2025 11:[address] [facility] MCV 88.0 79.0 - 98.0 FL LAB HEMETOLOGY METHOD 04/22/2025 11:[address] [facility] MCH 28.3 27.0 - 32.0 pcg LAB HEMETOLOGY METHOD 04/22/2025 11:[address] [facility] MCHC 32.2 32.0 - 37.0 g/dL LAB HEMETOLOGY METHOD 04/22/2025 11:[address] [facility] RDW 16.0(H) 11.0 - 15.0 % LAB HEMETOLOGY METHOD 04/22/2025 11:[address] [facility] Platelets 317 130 - 400 K/mcL LAB HEMETOLOGY METHOD 04/22/2025 11:[address] [facility] MPV 10.2 7.0 - 11.0 FL LAB HEMETOLOGY METHOD 04/22/2025 11:[address] [facility] NRBC 0.0 <1.0 % LAB HEMETOLOGY METHOD 04/22/2025 11:[address] [facility] NRBC Absolute 0.00 <0.10 K/mcL LAB HEMETOLOGY METHOD 04/22/2025 11:[address] [facility] Neutrophils Relative 63.9 % LAB HEMETOLOGY METHOD 04/22/2025 11:[address] [facility] Lymphocytes Relative 21.1 % LAB HEMETOLOGY METHOD 04/22/2025 11:[address] [facility] Monocytes Relative 12.6 % LAB HEMETOLOGY METHOD 04/22/2025 11:[address] [facility] Eosinophils Relative 1.2 % LAB HEMETOLOGY METHOD 04/22/2025 11:[address] [facility] Basophils Relative 0.8 % LAB HEMETOLOGY METHOD 04/22/2025 11:[address] [facility] Immature Granulocytes Relative 0.4 % LAB HEMETOLOGY METHOD 04/22/2025 11:[address] [facility] Neutrophils Absolute 3.31 1.50 - 7.00 K/mcL LAB HEMETOLOGY METHOD 04/22/2025 11:[address] [facility] Lymphocytes Absolute 1.09 1.00 - 5.00 K/mcL LAB HEMETOLOGY METHOD 04/22/2025 11:[address] [facility] Monocytes Absolute 0.65 0.20 - 1.00 K/mcL LAB HEMETOLOGY METHOD 04/22/2025 11:[address] [facility] Eosinophils Absolute 0.06 0.00 - 0.50 K/mcL LAB HEMETOLOGY METHOD 04/22/2025 11:[address] [facility] Basophils Absolute 0.04 0.00 - 0.20 K/mcL LAB HEMETOLOGY METHOD 04/22/2025 11:[address] [facility] Immature Granulocytes Absolute 0.02 0.00 - 0.03 K/mcL LAB HEMETOLOGY METHOD 04/22/2025 11:[address] [facility] Blood Venous blood specimen / Unknown Venipuncture / Unknown 04/22/2025 5:50 AM EDT 04/22/2025 10:46 AM EDT Lionel CROUCH LAB BLOOD ORDERABLES Final R esult [facility] [address] [place] [address], [place] [phone] * C-reactive protein (04/22/2025 5:50 AM EDT) C-Reactive Protein <0.29 <=0.50 mg/dL LAB CHEMISTRY METHOD 04/22/2025 1:20 PM EDT [facility] Blood Venous blood specimen / Unknown Venipuncture / Unknown 04/22/2025 5:50 AM EDT 04/22/2025 10:46 AM EDT Eli CROUCH LAB BLOOD ORDERABLES Final Resul t Performing Organization Address City/[facility]/ZIP Co de Phone Number [facility] [address] [place] [address], [place] [phone] from Last 3 Months Insurance MEDICARE [facility] Care Teams Medication Specialist Relationship Specialty Start Date End Date Adriana Lin MD [address] [place] [phone] PCP - General 07/01/20
--- OUTSIDE RECORDS SUMMARY | 2025-05-12 08:28 | XMS_ITS | Encounter Summary ---
Author Organization [facility] Address [address] [place] [address] Care Team Providers Care Outboard Motor Assembler Name Role Phone Adriana Lin MD Primary Care Provider [phone]- [phone] Encounter Details Date Type Department Care Team (Late Contact Info) Description 04/22/2025 Lab Requisition [facility] - Main Lab [address] Count Includes [facility] [place] [address] Lionel Berry PA [address] [facility] [address] [place] [phone] Encounter for other general examination Social History [...] Description 10/21/2025 1:30 PM EDT Ancillary Procedure [facility] - [address] [facility] [address] [place] [address] documented as of this encounter Procedures Procedure Name Priority Date/Time Associated Diagnosis Comments CBC WITH AUTO DIFFERENTIAL Routine 04/22/2025 5:50 AM EDT Encounter for other general examination CBC AND DIFFERENTIAL Routine 04/22/2025 5:50 AM EDT Encounter for other general examination MAGNESIUM Routine 04/22/2025 5:50 AM EDT Encounter for other general examination COMPREHENSIVE METABOLIC PANEL Routine 04/22/2025 5:50 AM EDT Encounter for other general examination documented in this encounter Results * (ABNORMAL) CBC auto differential (04/22/2025 5:50 AM EDT) WBC 5.2 4.8 - 10.8 K/mcL LAB HEMETOLOGY METHOD 04/22/2025 11:20 AM [facility] RBC 3.70(L) 3.80 - 4.80 M/mcL LAB HEMETOLOGY [facility] Hemoglobin 10.6(L) 11.5 - 16.0 g/dL LAB HEMETOLOGY METHOD 04/22/2025 11:20 AM [facility] Hematocrit 32.9(L) 35.0 - 47.0 % LAB HEMETOLOGY METHOD 04/22/2025 11:20 AM [facility] MCV 88.0 79.0 - 98.0 FL LAB HEMETOLOGY METHOD 04/22/2025 11:20 AM EDT [facility] MCH 28.3 27.0 - 32.0 pcg LAB HEMETOLOGY METHOD 04/22/2025 11:20 AM [facility] MCHC 32.2 32.0 - 37.0 g/dL LAB HEMETOLOGY METHOD 04/22/2025 11:20 AM [facility] RDW 16.0(H) 11.0 - 15.0 % LAB HEMETOLOGY METHOD 04/22/2025 11:20 AM [facility] Platelets 317 130 - 400 K/mcL LAB HEMETOLOGY METHOD 04/22/2025 11:20 AM [facility] MPV 10.2 7.0 - 11.0 FL LAB HEMETOLOGY METHOD 04/22/2025 11:20 AM [facility] NRBC 0.0 <1.0 % LAB HEMETOLOGY METHOD 04/22/2025 11:20 AM [facility] NRBC Absolute 0.00 <0.10 K/mcL LAB HEMETOLOGY METHOD 04/22/2025 11:20 AM [facility] Neutrophils Relative 63.9 % LAB HEMETOLOGY METHOD 04/22/2025 11:20 AM [facility] Lymphocytes Relative 21.1 % LAB HEMETOLOGY METHOD 04/22/2025 11:20 AM [facility] Monocytes Relative 12.6 % LAB HEMETOLOGY METHOD 04/22/2025 11:20 AM [facility] Eosinophils Relative 1.2 % LAB HEMETOLOGY METHOD 04/22/2025 11:20 AM [facility] Basophils Relative 0.8 % LAB HEMETOLOGY METHOD 04/22/2025 11:20 AM [facility] Immature Granulocytes Relative 0.4 % LAB HEMETOLOGY METHOD 04/22/2025 11:20 AM [facility] Neutrophils Absolute 3.31 1.50 - 7.00 K/mcL LAB HEMETOLOGY METHOD 04/22/2025 11:20 AM [facility] Lymphocytes Absolute 1.09 1.00 - 5.00 K/mcL LAB HEMETOLOGY METHOD 04/22/2025 11:20 AM [facility] Monocytes Absolute 0.65 0.20 - 1.00 K/mcL LAB HEMETOLOGY METHOD 04/22/2025 11:20 AM EDT [facility] Eosinophils Absolute 0.06 0.00 - 0.50 K/[facility] LAB HEMETOLOGY METHOD 04/22/2025 11:20 AM EDT [facility] Basophils Absolute 0.04 0.00 - 0.20 K/[facility] LAB HEMETOLOGY METHOD 04/22/2025 11:20 AM EDT [facility] Immature Granulocytes Absolute 0.02 0.00 - 0.03 K/[facility] LAB HEMETOLOGY METHOD 04/22/2025 11:20 AM EDT [facility] Blood Venous blood specimen / Unknown Venipuncture / Unknown 04/22/2025 5:50 AM EDT 04/22/2025 10:46 AM EDT Lionel CROUCH LAB BLOOD ORDERABLES Final R esult Performing Organization Address City/[facility]/ZIP Co de Phone Number [facility] [address] [place] [address], [place] [phone] * Magnesium (04/22/2025 5:50 AM EDT) [facility] Magnesium 2.1 1.9 - 2.6 mg/dL LAB CHEMISTRY METHOD 04/22/2025 1:27 PM EDT [facility] Blood Venous blood specimen / Unknown Venipuncture / Unknown 04/22/2025 5:50 AM EDT 04/22/2025 10:46 AM EDT Lionel CROUCH LAB BLOOD ORDERABLES Final R esult [facility] [address] [place] [address], [place] [phone] * (ABNORMAL) Comprehensive metabolic panel (04/22/2025 5:50 AM EDT) Sodium 140 133 - 145 mmol/L LAB CHEMISTRY METHOD 04/22/2025 1:27 PM [facility] Potassium 3.7 3.5 - 5.5 mmol/L LAB CHEMISTRY METHOD 04/22/2025 1:27 PM [facility] Chloride 109 96 - 110 mmol/L LAB CHEMISTRY METHOD 04/22/2025 1:27 PM [facility] CO2 25 21 - 32 mmol/L LAB CHEMISTRY METHOD 04/22/2025 1:27 PM [facility] Anion Gap 6 3 - 11 LAB CHEMISTRY METHOD 04/22/2025 1:27 PM [facility] Glucose 78 70 - 100 mg/dL LAB CHEMISTRY METHOD 04/22/2025 1:27 PM [facility] BUN 15 5 - 25 mg/dL LAB CHEMISTRY METHOD 04/22/2025 1:27 PM [facility] Creatinine 0.88 0.50 - 1.10 mg/dL LAB CHEMISTRY METHOD 04/22/2025 1:27 PM [facility] eGFR 67 >=60 mL/min/1. 73m2 LAB CHEMISTRY METHOD 04/22/2025 1:27 PM [facility] Comment:Calculation based on the Chronic Kidney Disease Epidemiology Collaboration (CKD-EPI) equation refit without adjustment for race. BUN/Creatinine Ratio 17.0 LAB CHEMISTRY METHOD 04/22/2025 1:27 PM [facility] Calcium 9.0 8.5 - 10.5 mg/dL LAB CHEMISTRY METHOD 04/22/2025 1:27 PM [facility] AST (SGOT) 23 10 - 42 unit/L LAB CHEMISTRY METHOD 04/22/2025 1:27 PM [facility] ALT (SGPT) 35 10 - 60 unit/L LAB CHEMISTRY METHOD 04/22/2025 1:27 PM [facility] Alkaline Phosphatase 53 42 - 121 unit/L LAB CHEMISTRY METHOD 04/22/2025 1:27 PM EDT [facility] Total Protein 5.3(L) 6.0 - 8.0 g/dL LAB CHEMISTRY METHOD 04/22/2025 1:27 PM EDT [facility] Albumin 2.9(L) 3.2 - 5.0 g/dL LAB CHEMISTRY METHOD 04/22/2025 1:27 PM EDT [facility] Total Bilirubin 0.7 0.0 - 1.4 mg/dL LAB CHEMISTRY METHOD 04/22/2025 1:27 PM EDT [facility] Blood Venous blood specimen / Unknown Venipuncture / Unknown 04/22/2025 5:50 AM EDT 04/22/2025 10:46 AM EDT us Lionel CROUCH LAB BLOOD ORDERABLES Final R esult [facility] [address] [place] [address], documented in this encounter Visit Diagnoses Diagnosis Encounter for other general examination Encounter for adjustment or management of cardiac device documented in this encounter Care Teams Outboard Motor Assembler Relationship Specialty Start Date End Date Adriana Lin MD [address] [place] [address] PCP - General 07/01/20 documented as of this encounter
--- OUTSIDE RECORDS SUMMARY | 2025-05-12 08:28 | XMS_ITS | Encounter Summary ---
Author Organization [facility] Address [address] [place] [address] Care Team Providers Care Mechanical Engineering Director Name Role Phone Adriana Lin MD Primary Care Provider [phone]- [phone] Encounter Details Date Type Department Care Team (Late Contact Info) Description 04/22/2025 Lab Requisition [facility] - Main Lab [address] [facility] [place] [address] Eli Syed PA [address] [place] [address] Encounter for other general examination Social History [...] Description 10/21/2025 1:30 PM EDT Ancillary Procedure [facility] - [address] [facility] [address] [place] [address] documented as of this encounter Procedures Procedure Name Priority Date/Time Associated Diagnosis Comments SEDIMENTATION RATE Routine 04/22/2025 5: 50 AM EDT Encounter for other general examination C-REACTIVE PROTEIN Routine 04/22/2025 5: 50 AM EDT Encounter for other general examination documented in this encounter Results * C-reactive protein (04/22/2025 5:50 AM EDT) C-Reactive Protein <0.29 <=0.50 mg/dL LAB CHEMISTRY METHOD 04/22/2025 1:[address] [facility] Blood Venous blood specimen / Unknown Venipuncture / Unknown 04/22/2025 5:50 AM EDT 04/22/2025 10:46 AM EDT Eli CROUCH LAB BLOOD ORDERABLES Final Resul t Performing Organization Address City/[facility]/ZIP Co de Phone Number [facility] [address] [place] [address], [place] [phone] * Sedimentation rate (04/22/2025 5:50 AM EDT) Pathologist [facility] Sed Rate 23 0 - 30 mm/hr LAB HEMETOLOGY METHOD 04/22/2025 11:[address] [facility] Blood Venous blood specimen / Unknown Venipuncture / Unknown 04/22/2025 5:50 AM EDT 04/22/2025 10:46 AM EDT Eli CROUCH LAB BLOOD ORDERABLES Final Resul t [facility] [address] [place] [address], [place] [phone] documented in this encounter Visit Diagnoses Diagnosis Encounter for other general examination Encounter for adjustment or management of cardiac device documented in this encounter Care Teams Mechanical Engineering Director Relationship Specialty Start Date End Date Adriana Lin MD [address] [place] [phone] PCP - General 07/01/20 documented as of this encounter
--- OUTSIDE RECORDS SUMMARY | 2025-05-12 08:28 | XMS_ITS | Encounter Summary ---
Author Organization [facility] Address [address] [place] [address] Care Team Providers Care Manager Services Name Role Phone Adriana Lin MD Primary Care Provider [phone]- [phone] Encounter Details Date Type Department Care Team (Late Contact Info) Description 04/27/2025 Lab Requisition [facility] - Main Lab [address] [facility] [place] [address] Oxana Serna MD [address] [place] [address] Encounter for other general examination Social History [...] EDT Ancillary Procedure [facility] [address] [facility] [address] [place] [address] documented as of this encounter Procedures Procedure Name Priority Date/Time Associated Diagnosis Comments SEDIMENTATION RATE Routine 04/27/2025 5: 02 AM EDT Encounter for other general examination COMPLETE BLOOD COUNT Routine 04/27/2025 5:02 AM EDT Encounter for other general examination MAGNESIUM Routine 04/27/2025 5:02 AM EDT Encounter for other general examination VITAMIN B12 Routine 04/27/2025 5:02 AM EDT Encounter for other general examination COMPREHENSIVE METABOLIC PANEL Routine 04/27/2025 5:02 AM EDT Encounter for other general examination documented in this encounter Results * Vitamin B12 (04/27/2025 5:02 AM EDT) Pathologist [facility] Vitamin B-12 627 250 - 900 pcg/mL LAB CHEMISTRY METHOD 04/27/2025 11:16 AM EDT [facility] Blood Venous blood specimen / Unknown Venipuncture / Unknown 04/27/2025 5:02 AM EDT 04/27/2025 9:40 AM EDT us Oxana Serna MD LAB BLOOD ORDERABLES Final Resu lt [facility] [address] [place] [address], * (ABNORMAL) Comprehensive metabolic panel (04/27/2025 5:02 AM EDT) [facility] Sodium 138 133 - 145 mmol/L LAB CHEMISTRY METHOD 04/27/2025 11:16 AM EDT [facility] Potassium 4.5 3.5 - 5.5 mmol/L LAB CHEMISTRY METHOD 04/27/2025 11:16 AM EDT [facility] Chloride 107 96 - 110 mmol/L LAB CHEMISTRY METHOD 04/27/2025 11:16 AM EDT [facility] CO2 25 21 - 32 mmol/L LAB CHEMISTRY METHOD 04/27/2025 11:16 AM [facility] Anion Gap 6 3 - 11 LAB CHEMISTRY METHOD 04/27/2025 11:16 AM [facility] Glucose 96 70 - 100 mg/dL LAB CHEMISTRY METHOD 04/27/2025 11:16 AM [facility] BUN 20 5 - 25 mg/dL LAB CHEMISTRY METHOD 04/27/2025 11:16 AM [facility] Creatinine 0.91 0.50 - 1.10 mg/dL LAB CHEMISTRY METHOD 04/27/2025 11:16 AM [facility] eGFR 64 >=60 mL/min/1. 73m2 LAB CHEMISTRY METHOD 04/27/2025 11:16 AM [facility] Comment:Calculation based on the Chronic Kidney Disease Epidemiology Collaboration (CKD-EPI) equation refit without adjustment for race. BUN/Creatinine Ratio 22.0 LAB CHEMISTRY METHOD 04/27/2025 11:16 AM [facility] Calcium 9.1 8.5 - 10.5 mg/dL LAB CHEMISTRY METHOD 04/27/2025 11:16 AM [facility] AST (SGOT) 14 10 - 42 unit/L LAB CHEMISTRY METHOD 04/27/2025 11:16 AM [facility] ALT (SGPT) 24 10 - 60 unit/L LAB CHEMISTRY METHOD 04/27/2025 11:16 AM [facility] Alkaline Phosphatase 93 42 - 121 unit/L LAB CHEMISTRY METHOD 04/27/2025 11:16 AM [facility] Total Protein 5.6(L) 6.0 - 8.0 g/dL LAB CHEMISTRY METHOD 04/27/2025 11:16 AM [facility] Albumin 3.0(L) 3.2 - 5.0 g/dL LAB CHEMISTRY METHOD 04/27/2025 11:16 AM [facility] Total Bilirubin 0.5 0.0 - 1.4 mg/dL LAB CHEMISTRY METHOD 04/27/2025 11:16 AM EDT [facility] Blood Venous blood specimen / Unknown Venipuncture / Unknown 04/27/2025 5:02 AM EDT 04/27/2025 9:40 AM EDT us Oxana Serna MD LAB BLOOD ORDERABLES Final Resu lt Performing Organization Address City/[facility]/ZIP Co de Phone Number [facility] [address] [place] [address], [place] [phone] * Magnesium (04/27/2025 5:02 AM EDT) Magnesium 2.2 1.9 - 2.6 mg/dL LAB CHEMISTRY METHOD 04/27/2025 10:52 AM EDT [facility] Blood Venous blood specimen / Unknown Venipuncture / Unknown 04/27/2025 5:02 AM EDT 04/27/2025 9:40 AM EDT us Oxana Serna MD LAB BLOOD ORDERABLES Final Resu lt Performing Organization Address [facility] de Phone Number [facility] [address] [place] [address], [place] [phone] * (ABNORMAL) Sedimentation rate (04/27/2025 5:02 AM EDT) Sed Rate 32(H) 0 - 30 mm/hr LAB HEMETOLOGY METHOD 04/27/2025 10:33 AM EDT [facility] Blood Venous blood specimen / Unknown Venipuncture / Unknown 04/27/2025 5:02 AM EDT 04/27/2025 9:40 AM EDT us Oxana Serna MD LAB BLOOD ORDERABLES Final Resu lt [facility] [address] [place] [address], * (ABNORMAL) Complete blood count (04/27/2025 5:02 AM EDT) [facility] WBC 9.0 4.8 - 10.8 K/mcL LAB HEMETOLOGY METHOD 04/27/2025 10:25 AM EDT [facility] RBC 3.80 3.80 - 4.80 M/mcL LAB HEMETOLOGY METHOD 04/27/2025 10:25 AM EDT [facility] Hemoglobin 10.7(L) 11.5 - 16.0 g/dL LAB HEMETOLOGY METHOD [facility] Hematocrit 33.3(L) 35.0 - 47.0 % LAB HEMETOLOGY METHOD 04/27/2025 10:25 AM EDT [facility] MCV 88.6 79.0 - 98.0 FL LAB HEMETOLOGY METHOD 04/27/2025 10:25 AM EDT [facility] MCH 28.5 27.0 - 32.0 pcg LAB HEMETOLOGY METHOD 04/27/2025 10[facility] MCHC 32.1 32.0 - 37.0 g/dL LAB HEMETOLOGY METHOD 04/27/2025 10:25 AM EDT [facility] RDW 15.8(H) 11.0 - 15.0 % LAB HEMETOLOGY METHOD 04/27/2025 10:25 AM EDT [facility] Platelets 375 130 - 400 K/mcL LAB HEMETOLOGY METHOD 04/27/2025 10:25 AM EDT [facility] MPV 10.6 7.0 - 11.0 FL LAB HEMETOLOGY METHOD 04/27/2025 10:25 AM EDT [facility] NRBC 0.0 <1.0 % LAB HEMETOLOGY METHOD 04/27/2025 10:25 AM EDT [facility] NRBC Absolute 0.00 <0.10 K/mcL LAB HEMETOLOGY METHOD 04/27/2025 10:25 AM EDT [facility] Blood Venous blood specimen / Unknown Venipuncture / Unknown 04/27/2025 5:02 AM EDT 04/27/2025 9:40 AM EDT us Oxana Serna MD LAB BLOOD ORDERABLES Final Resu lt [facility] [address] [place] [address], documented in this encounter Visit Diagnoses Diagnosis Encounter for other general examination Encounter for adjustment or management of cardiac device documented in this encounter Care Teams Manager Services Relationship Specialty Start Date End Date Adriana Lin MD [address] [place] [phone] PCP - General 07/01/20 documented as of this encounter
--- OUTSIDE RECORDS SUMMARY | 2025-05-12 08:28 | XMS_ITS | Encounter Summary ---
Author Organization [facility] Address [address] [place] [address] Phone Care Team Providers Care Salvage Repairer Name Role Phone Cynthia Romo Primary Care Provider [phone]- [phone] Encounter Details Date Type Department Care Team (Latest Contact Info) Description 07/12/2022 Transcribe Orders Virtual Department [address] [place] [address] Cynthia Romo PA [address] [place] [address] Other giant cell arteritis (Primary Dx) Social History Tobacco Use Types Packs/Day Years Used Date Smoking Tobacco: Former Cigarettes 1 12 960 1971 Smokeless Tobacco: Never Comments:about 30 yrs [...] Job 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 Date Job End Date 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 Not on file Not on joceline e Not on file documented as of this encounter Plan of Treatment Not on file documented as of this encounter Visit Diagnoses Diagnosis Other giant cell arteritis- Primary documented in this encounter Additional Health Concerns Infection Onset Date Last Indicated Resolved Time CoV-Risk 05/11/2024 05/11/2024 05/22/2024 1:22 AM EDT documented as of this encounter Care Teams Salvage Repairer Relationship Specialty Start Date End Date Cynthia Romo PA [address] [place] [address] PCP - General Salesperson [employer] 10/26/18 documented as of this encounter Additional Source Comments The information contained in this document represents components of the legal health record. It is not the complete legal health record.[facility]
--- OUTSIDE RECORDS SUMMARY | 2025-05-12 08:29 | XMS_ITS | Encounter Summary ---
Author Organization 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 Wish to be (Past 1 Month) No 025 3:07 PM EDT Yuliya Zheng RN 2. Non-Specific Active Suici yoni Thoughts (Past 1 Month) No 03/16/2025 3:07 PM EDT Domenica Zheng RN 6. Suicidal Behavior (Lifetime) No 3:07 PM EDT Yuliya Zheng RN documented as of this encounter Plan of Treatment Not on file documented as of this encounter Visit Diagnoses Not on filedocumented in this encounter Care Teams Small Business Banking Officer Relationship Specialty Start Date End Date Cynthia Romo PA [address] [place] [address] PCP - General Counter Professional 10/26/18 documented as of this encounter Additional Source Comments The information contained in this document represents components of the legal health record. It is not the complete legal health record.[facility]
--- OUTSIDE RECORDS SUMMARY | 2025-05-12 08:29 | XMS_ITS | Encounter Summary ---
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 It is not the complete legal health record.[facility]
--- OUTSIDE RECORDS SUMMARY | 2025-05-12 08:29 | XMS_ITS | Encounter Summary ---
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 on joceline e Not on file documented as of this encounter Plan of Treatment Not on file documented as of this encounter Visit Diagnoses Not on filedocumented in this encounter Additional Health Concerns Infection Onset Date Last Indicated Resolved Time CoV-Risk 05/11/2024 05/11/202405/2205/22/2024 1:22 AM EDT documented as of this encounter Care Teams Senior Rd Engineer Relationship Specialty Start Date End Date Cynthia Romo PA [address] [place] [address] PCP - General Hooker Up 10/26/18 Eomry Posey MD [address] [place] [address] [place] [address] Historical LMR Provider 05/27/17 2 Abram Mcallister MD [address] [place] [address] [email or web address] Historical LMR Provider 05/27/17 08/19/21 Breanna Garcia MD [address] [place] [address] Historical LMR Provider 05/27/17 08/19/21 documented as of this encounter Additional Source Comments The information contained in this document represents components of the legal health record. It is not the complete legal health record.[facility]
--- OUTSIDE RECORDS SUMMARY | 2025-05-12 08:29 | XMS_ITS | Encounter Summary ---
Author Organization [facility] Address [address] [facility] [address] [place] [address] Phone Care Team Providers Care Product Safety Technician Name Role Phone Cynthia Romo Primary Care Provider [phone]- [phone] Reason for Referral * MRI/CAT Scan - Closed Specialty Diagnoses / Procedures Referred By Contac t Referred To Contact Radiology Diagnoses Pain, unspecified Procedures CT Abdomen/Pelvis Cynthia Romo PA [address] [place] [address] Phone: tel: fax: Referral ID Status Reason Start Date Expiration Date Visits Re quested Visits Authorized [id number] Closed 03/17/2025 03/17/2026 1 1 * MRI/CAT Scan - Closed Specialty Diagnoses / Procedures Referred By Contac t Referred To Contact Radiology Diagnoses Pain, unspecified Procedures CT Chest Cynthia Romo PA [address] [place] [address] Phone: tel: fax: Referral ID Status Reason Start Date Expiration Date Visits Re quested Visits Authorized [id number] Closed 03/17/2025 03/17/2026 1 1 Encounter Details Date Type Department Care Team (Latest Contact Info) Description 03/17/2025 Transcribe Orders Virtual Department [address] [place] [address] Cynthia Romo PA [address] [place] [address] Pain, unspecified (Primary Dx) Social History Tobacco Use Types Packs/Day Years Used Date Smoking Tobacco: Former Cigarettes 1 12 1 960 - 1971 Smokeless Tobacco: Never Comments:about [...] 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 Cynthia Gerri CROUCH IMG CT ABD/PELVIS Final Re sult * CT CHEST WITH CONTRAST (03/20/2025 1:45 PM EDT) [facility] IMG RECOMMENDATION COMMENT Scattered pulmonary nodules up to 3 mm; pulmonary nodule [facility] Anatomical Region Laterality Modality Chest Computed Tomogra [...] clinician's provided indication for this examination in [facility]:Outside Radiology Order; whole body pain TECHNIQUE: Multidetector [...] chest in 12-14 months for pulmonary nodule. Cynthia CROUCH [facility] CT CHEST Final Resu lt documented in this encounter Visit Diagnoses Diagnosis Pain, unspecified- Primary Pain, unspecified documented in this encounter Care Teams Product Safety Technician Relationship Specialty Start Date End Date Cynthia Romo PA [address] [place] [address] PCP - General Child Support Agent 10/26/18 documented as of this encounter Additional Source Comments The information contained in this document represents components of the legal health record. It is not the complete legal health record.[facility]
--- OUTSIDE RECORDS SUMMARY | 2025-05-12 08:29 | XMS_ITS | Clinical Summary ---
Author Organization [facility] Address [address] [facility] [address] [place] [address] Phone Care Team Providers Care Binding Nicker Name Role Phone Cynthia Romo Sherrie SMITH Primary Care Provider [phone]- [phone] Allergies Active Allergy Reactions Criticality Noted Date [...] at Not on file Legal Sex Female 9:58 AM EDT Gender Identity Not on file [...] age to complete this topic Insurance Medicare [facility] Medicare [facility] Care Teams Binding Nicker Relationship Specialty Start Date End Date Cynthia Romo PA-C [address] [place] [address] PCP - General Physician Photo Producer 08/12/24
--- OUTSIDE RECORDS SUMMARY | 2025-05-12 08:29 | XMS_ITS | Encounter Summary ---
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 It is not the complete legal health record.[facility]
--- OUTSIDE RECORDS SUMMARY | 2025-05-12 08:29 | XMS_ITS | Encounter Summary ---
Author Organization [facility] Address [address] [place] [address] Phone Care Team Providers Care Certified Indoor Environmentalist Name Role Phone Emory Posey MD Unavailable [phone] Abram Mcallister MD Unavailable Breanna Garcia MD Unavailable [phone] Cynthia Romo Primary Care Provider + [phone] Encounter Details Date Type Department Care Team (Late st Contact Info) Description 06/20/2021 Procedure Pass [facility]oscopy Admitting Dept Virtual Department [address] [place] [address] Social History Tobacco Use Types Packs/Day Years [...] 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 on joceline e Not on file documented as of this encounter Plan of Treatment Not on file documented as of this encounter Visit Diagnoses Not on filedocumented in this encounter Additional Health Concerns Infection Onset Date Last Indicated Resolved Time CoV-Risk 05/11/2024 05/11/202405/2205/22/2024 1:22 AM EDT documented as of this encounter Care Teams Certified Indoor Environmentalist Relationship Specialty Start Date End Date Cynthia Romo PA [address] [place] [address] PCP - General Shelf Drier Operator 10/26/18 Emory Posey MD [address] [place] [address] [place] [address] Historical LMR Provider 05/27/17 2 Abram Mcallister MD [address] [place] [address] [email or web address] Historical LMR Provider 05/27/17 08/19/21 Breanna Garcia MD [address] [place] [address] Historical LMR Provider 05/27/17 08/19/21 documented as of this encounter Additional Source Comments The information contained in this document represents components of the legal health record. It is not the complete legal health record.[facility]
--- OUTSIDE RECORDS SUMMARY | 2025-05-12 08:29 | XMS_ITS | Encounter Summary ---
Author Organization [facility] Address [address] [place] [address] Phone Care Team Providers Care Bone Drier Operator Name Role Phone Emory Posey MD Unavailable [phone] Abram Mcallister MD Unavailable Breanna Garcia MD Unavailable [phone] Cynthia Romo Primary Care Provider + [phone] Encounter Details Date Type Department Care Team (Latest Contact Info) Description 05/26/2021 Transcribe Orders Virtual Department [address] [place] [address] Lay Marcial NP [address] [place] [address] Encounter for laboratory testing for COVID-19 virus (Primary Dx) Social History Tobacco Use Types Packs/Day Years Used Date Smoking Tobacco: Former Cigarettes 1 12 960 - 1971 Smokeless Tobacco: Never Comments:about 30 yrs played in smoking pubs Alcohol Use Standard Drinks/Week Comments Yes 7 [...] 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 Not on joceline e Not on file documented as of this encounter Plan of Treatment Not on file documented as of this encounter Visit Diagnoses Diagnosis Encounter for laboratory testing for COVID-19 virus- Primary documented in this encounter Additional Health Concerns Infection Onset Date Last Indicated Resolved Time CoV-Risk 05/11/2024 05/11/2024 05/22/2024 1:22 AM EDT documented as of this encounter Care Teams Bone Drier Operator Relationship Specialty Start Date End Date Cynthia Romo PA [address] [place] [address] PCP - General Cream Hauler 10/26/18 Emory Posey MD [address] [facility] [place] [place] [address] Historical LMR Provider 05/27/17 2 Abram Mcallister MD [address] [place] [address] [email or web address] Historical LMR Provider 05/27/17 08/19/21 Breanna Garcia MD [address] [place] [address] Historical LMR Provider 05/27/17 08/19/21 documented as of this encounter Additional Source Comments The information contained in this document represents components of the legal health record. It is not the complete legal health record.[facility]
--- OUTSIDE RECORDS SUMMARY | 2025-05-12 08:30 | XMS_ITS | Encounter Summary ---
Author Organization [facility] Address [address] [facility] [address] [place] [address] Phone Care Team Providers Care Director Outpatient Services Name Role Phone Cynthia Romo Primary Care Provider [phone]- [phone] Reason for Referral * MRI/CAT Scan - New Request Specialty Diagnoses / Procedures Referred By Contac t Referred To Contact Radiology Diagnoses Chronic intractable headache, unspecified headache type Other chronic pain Procedures MRI Brain MRI Brain Cynthia Romo PA [address] [place] [address] Phone: tel: fax: Referral ID Status Reason Start Date Expiration Date V isits Requested Visits Authorized [id number] New Request 03/29/2025 1 1 Encounter Details Date Type Department Care Team (Late st Contact Info) Description 03/29/2025 Ancillary Orders Virtual Department [address] [place] [id number] Cynthia Romo PA [address] [place] [phone] Chronic intractable headache, unspecified headache type (Primary Dx); Other chronic pain Social History Tobacco Use Types Packs/Day Years [...] 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 Not on joceline e Not on file documented as of this encounter Plan of Treatment Scheduled Orders Name Type Priority Associated Diagnoses Orde r Schedule MRI Brain Imaging Routine Chronic intractable headache, unspecified headache type Other chronic pain Expected: 03/29/2025, Expires: 03/29/2026 documented as of this encounter Visit Diagnoses Diagnosis Chronic intractable headache, unspecified headache type- Primary Other chronic pain documented in this encounter Care Teams Director Outpatient Services Relationship Specialty Start Date End Date Cynthia Romo PA [address] [place] [phone] PCP - General Wax Pumper 10/26/18 documented as of this encounter Additional Source Comments The information contained in this document represents components of the legal health record. It is not the complete legal health record.[facility]
--- OUTSIDE RECORDS SUMMARY | 2025-05-12 08:30 | XMS_ITS | Encounter Summary ---
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 It is not the complete legal health record.[facility]
== END 2025-05-12 09:08 | disposition home or self-care (01) ==
LOC: HO.RHES 08:11
PROVIDERS: PCP Physician Assistant Medical; Visit Provider Internal Medicine Rheumatology
DX: M31.6 Other giant cell arteritis (principal); Z79.899 Other long term (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 therapy; M80.00XD Age-related osteoporosis with current pathological fracture, unspecified site, subsequent encounter for fracture with routine healing
CPT/HCPCS: 99214; G2211